=== PATIENT | male | born 1945 | race Caucasian/White ===

== ENCOUNTER → 2017-12-28 08:37 | Outpatient (CLI) | payer MEDICARE, OTHER, SELFPAY ==
--- NOTE | 2017-12-28 08:49 | CT_ITS ---
CT abdomen pelvis wo con CLINICAL INDICATION: Right lower quadrant pain, possible hernia ITS.REASON: INGUINAL HERNIA ORDERING PHYSICIAN: Brooke Sharpe PATIENT AGE: 72 years COMPARISON: None TECHNIQUE: Axial images obtained with sagittal and coronal reformats. All CT scans at the facility use one or more dose reduction, viz: automated exposure control, ma/kV adjustment per patient size (including targeted exams where dose is matched to indication, i.e. head), or iterative reconstruction technique. PROCEDURE: Oral Contrast: Redicat IV Contrast: None . FINDINGS: No acute finding in the lower chest. There are coronary artery calcifications. The liver, gallbladder, spleen, adrenal glands, pancreas, and kidneys have an unremarkable unenhanced CT appearance. Unremarkable appendix. There is diverticulosis of the descending and sigmoid colon with mild thickening of the sigmoid colon which may be related to the chronic diverticulosis. No evidence of diverticulitis. The prostate gland is enlarged measuring 5.3 x 5.4 cm. There is mild concentric thickening of the urinary bladder wall. No evidence of inguinal hernia. No abdominal wall hernia is apparent. No evidence of abdominal aortic aneurysm. No acute bony anomalies apparent. IMPRESSION: 1. No acute abdominal or pelvic findings. 2. No evidence of abdominal wall or inguinal hernia. 3. Enlarged prostate. There is concentric urinary bladder wall thickening which may be related to chronic bladder outlet obstruction
== END ==
PROVIDERS: Visit Provider Nurse Practitioner Family
DX: K40.90 Unilateral inguinal hernia, without obstruction or gangrene, not specified as recurrent (principal)
CPT/HCPCS: 74176

== ENCOUNTER → 2018-04-13 14:04 | Outpatient (CLI) | payer MEDICARE, OTHER, SELFPAY ==
[2018-04-13 17:00] LABS: Basophils # 0.1 K/mm3 (0-0.2); Basophils % 0.8 % (0.1-2.0); Eosinophils # 0.1 K/mm3 (0.0-0.4); Eosinophils % 0.9 % (0.1-12.0); Hematocrit 37.7 % (42.0-52.0); Hemoglobin 12.7 g/dL (14.1-18.0); Lymphocytes # 1.2 K/mm3 (0.7-4.5); Lymphocytes % 19.8 % (10-50); Mean Corpuscular HGB Conc 33.6 g/dL (31.8-35.4); Mean Corpuscular Hemoglobin 32.6 pg (27.0-31.2); Mean Corpuscular Volume 97.3 fl (80-94); Mean Platelet Volume 8.8 fl (7.4-10.4); Monocytes # 0.4 K/mm3 (0.1-1.0); Neutrophils # 4.4 K/mm3 (1.8-7.8); Neutrophils % 72.5 % (37.0-80.0); Platelet Count 214 K/mm3 (142-424); Red Blood Count 3.88 M/mm3 (4.60-6.20); Red Cell Distribution Width 13.6 % (11.5-17.5); White Blood Count 6.1 K/mm3 (4.8-10.8)
[2018-04-13 17:04] LABS: Anion Gap 15.4 mEq/L (5-15); Blood Urea Nitrogen 15 mg/dL (7-18); Calcium 8.9 mg/dL (8.5-10.1); Carbon Dioxide 27 mmol/L (21.0-32.0); Chloride 102 mmol/L (98-107); Estimated Glomerular Filt Rate 95 ml/min (>60); GFR (African American) 115 ML/MIN (>60); Glucose 95 mg/dL (74-106); Potassium 4.4 mmoL/L (3.5-5.1); Sodium 140 mmol/L (136-145)
== END ==
PROVIDERS: Visit Provider Surgery
DX: K46.9 Unspecified abdominal hernia without obstruction or gangrene (principal)
CPT/HCPCS: 36415; 80048; 85025

== ENCOUNTER → 2019-12-02 09:36 | Outpatient (CLI) | payer MEDICARE, OTHER, SELFPAY ==
[2019-12-02 13:45] LABS: Coronavirus 19 IgG Antibody Positive (Negative); Coronavirus 19 IgM Antibody Negative (Negative)
== END ==
PROVIDERS: Visit Provider Surgery
DX: Z01.818 Encounter for other preprocedural examination (principal); Z12.11 Encounter for screening for malignant neoplasm of colon
CPT/HCPCS: 36415; 86328

== ENCOUNTER 2019-12-03 09:04 | Day surgery (SDC) | payer MEDICARE, OTHER, SELFPAY ==
[2019-12-03] VITALS (7 sets, daily range): BP systolic 81–158; BP diastolic 44–88; PULSE 51–80; RESP 18; TEMP 36.4–36.7; O2SAT 96–99; BMI 23.8
--- NOTE | 2019-12-03 10:12 | HMH.GSHP ---
HPI HPI: Patient is a 74-year-old male referred by Dr. Gulshan Finnegan for evaluation of hemorrhoids. In May 2018 I had performed laparoscopic inguinal hernia repair on him. He states that, I have had hemorrhoids for years. His symptoms have been progressively worse. He describes some blood and fluid discharge with bowel movements. He states he has a hemorrhoid which protrudes. He does not have any severe pain. He states that he has had to place tissue paper. He has never had prior colonoscopy. On limited office examination he has no evidence of any severe pathologic external hemorrhoids. Digital examination is relatively untelling. I explained to him that he needs a colonoscopy and this would be recommended to better evaluate any potential internal hemorrhoids or alternative pathology. He was somewhat hesitant to proceed with this. I informed him that I am unable to treat any potential problem which may or may not be hemorrhoids without further investigation. Plan will be to proceed with colonoscopy. If he does have merely some internal hemorrhoids attempt at colonoscopic banding may be able to be performed. [facility] History I have reviewed the patient's past medical history: Yes Medical History: Reports:: BPH, Cancer (skin cancer), Hyperlipidemia, Hypertension Denies:: Diabetes Mellitus Type 1, Diabetes Mellitus Type 2, Internal Pacemaker, MRSA, Seizures *Have you ever received a pneumonia vaccine?: Yes *Have you received a flu vaccine this season?: Yes Other Medical History: Denies: Blood Transfusion Reaction Laterality Cases: Bilateral: Carotid Endarterectomy Other Surgeries: Yes: Cancer Surgery, Hernia Repair, Skin Cancer Excision. No: Pacemaker Amputation: No Fractures: No - *Social History Last grade of school completed: Some college Smoking Status: Never smoker Alcohol Intake: never Alcohol Intake Frequency:: holidays/special occasions only Substance Use Type: denies use *Occupational Status:: employed Housing: house Household Members: spouse *Travel in the last 8 weeks: None Family Hx:: Cancer, Coronary Artery Disease, Diabetes, Heart Attack, Hyperlipidemia, Hypertension Review of Systems - Review of Systems Review of systems:: pertinent systems reviewed and negative unless documented below Meds Home Medications Medication Instructions Recorded Confirmed Type atorvastatin 10 mg tablet 10 mg PO DAILY 04/13/18 01/22/19 History cholecalciferol (vitamin D3) 25 1,000 unit PO DAILY 04/13/18 01/22/19 History mcg (1,000 unit) capsule omega-3 fatty acids-fish oil 360 1 cap PO DAILY 04/13/18 01/22/19 History mg-1,200 mg capsule saw palmetto fruit 450 mg capsule 450 mg PO BID 04/13/18 01/22/19 History sildenafil 100 mg tablet 100 mg PO DAILY PRN 04/13/18 01/22/19 History tamsulosin 0.4 mg capsule 0.4 mg PO DAILY 04/13/18 01/22/19 History [id number]/Sod Sulf,Bicarb,Cl/KCl 240 ml PO Q10M 12/03/19 History [Gavilyte-C Solution] Allergies Allergy/AdvReac Type Severity Reaction Status Date / Time No Known Allergies Allergy Verified 12/03/19 09:45 Exam Vital signs and Labs for Last 24 Hours: Temp Pulse Resp BP Pulse Ox 98.0 F 80 18 158/88 H 96 12/03/19 09:31 12/03/19 09:31 12/03/19 09:31 12/03/19 09:31 12/03/19 09:31 I & O for Last 24 hours: Intake & Output 11/30/19 12/01/19 12/02/19 12/03/19 11:59 11:59 11:59 11:59 Weight 166 lb - *Routine HEENT Exam Head: Present: normocephalic Eye: Present: EOMI, PERRL ENT: Present: mucous membranes moist - *Routine Neck Exam Present: supple. Absent: lymphadenopathy - *Routine Respiratory Exam Present: CTA bilaterally - *Routine Cardiovascular Exam Present: RRR - *Routine Abdominal Exam Present: soft, normoactive bowel sounds. Absent: tenderness - *Routine Extremities Exam Absent: cyanosis, clubbing, edema - *Routine Skin Exam Present: warm. Absent: rash - *Routine Neurological Exam Present: alert, layla
--- NOTE | 2019-12-03 11:38 | HMH.SCOPE ---
- Procedure: Date: 12/03/19 Patient Date of :: 1945 Procedure Performed:: Total colonoscopy to terminal ileum with numerous polypectomy by cold snare, hot snare, and biopsy forceps with injection of Cindy ink and clip placement Indications:: Patient is a 74-year-old male referred by Dr. Gulshan Finnegan for evaluation of hemorrhoids. In May 2018 I had performed laparoscopic inguinal hernia repair on him. He states that, I have had hemorrhoids for years. His symptoms have been progressively worse. He describes some blood and fluid discharge with bowel movements. He states he has a hemorrhoid which protrudes. He does not have any severe pain. He states that he has had to place tissue paper. He has never had prior colonoscopy. On limited office examination he has no evidence of any severe pathologic external hemorrhoids. Digital examination is relatively untelling. I explained to him that he needs a colonoscopy and this would be recommended to better evaluate any potential internal hemorrhoids or alternative pathology. He was somewhat hesitant to proceed with this. I informed him that I am unable to treat any potential problem which may or may not be hemorrhoids without further investigation. Plan will be to proceed with colonoscopy. If he does have merely some internal hemorrhoids attempt at colonoscopic banding may be able to be performed. Performing Provider:: Rajesh Ramos MD Referring Provider:: Gulshan Finnegan MD Sedation:: Propofol Procedure:: Patient was taken to endoscopy procedure room. He was positioned in a lateral decubitus position. Adequate intravenous sedation was achieved with anesthesia titration of propofol. Variable stiffness Olympus colonoscope was inserted via the anus. Retroflexion was performed immediately which revealed some evidence of internal hemorrhoids but there was a pedunculated lesion at the anorectal region which appeared more like a pedunculated polyp with some ulceration. This is likely the source of the patient's symptomatology. The colonoscope was then advanced to the cecum without difficulty. Colonic preparation was good. Ileocecal valve and appendiceal orifice were clearly identified. Colonoscope was slowly withdrawn through the colon with careful surveillance. Numerous polyps were encountered. Due to the large number of polyps please see findings below for details. Most notable was a jeff-circumferential polypoid lesion which was quite large and sessile at the region presumed to be the splenic flexure approximately 70 cm from the anal verge. This was partially removed with repeated application of hot snare but could not be removed in its entirety. Cindy ink was injected submucosally around the lesion to julia the area. Hemoclip was placed endoscopically for potential radiographic marking. Endoscope was then withdrawn through the remainder of the colon with additional polypectomy performed. There was some sigmoid diverticulosis. Retroflexion was then performed once again within the rectum. The anorectal pedunculated lesion was encircled with a hot snare and removed. Colonoscope was withdrawn. Findings:: Cecal polyp x2 removed with cold snare Ascending colon polyp removed with biopsy forceps Hepatic flexure polyp removed with cold snare Proximal transverse polyp removed with cold snare Hepatic flexure polyp #2 removed with cold snare Right colon polyp not otherwise specified removed with cold snare Transverse colon polyp x4 removed with cold biopsy forceps Splenic flexure lesion, jeff-circumferential flat and sessile, partially removed with hot snare with injection of Cindy spot and clip placement Descending colon polyp x2 removed with cold snare and biopsy forceps Sigmoid polyp removed with cold snare Mid sigmoid polyp removed with cold biopsy forceps Distal sigmoid polyp removed with hot snare and retrieved with [place] net Distal sigmoid polyp #2 removed with col
== END 2019-12-03 12:30 | disposition home or self-care (01) ==
LOC: OUTP 09:07
PROVIDERS: PCP Internal Medicine Adolescent Medicine; Visit Provider Surgery
PROC: 0DJD8ZZ Inspection of Lower Intestinal Tract, Via Natural or Artificial Opening Endoscopic (ICD-10-PCS; CPT 45381; principal; 2019-12-03 10:30)
DX: K63.5 Polyp of colon (principal); K57.30 Diverticulosis of large intestine without perforation or abscess without bleeding; K64.9 Unspecified hemorrhoids; N40.0 Benign prostatic hyperplasia without lower urinary tract symptoms; Z85.828 Personal history of other malignant neoplasm of skin; E78.5 Hyperlipidemia, unspecified; I10 Essential (primary) hypertension; Z79.899 Other long term (current) drug therapy
CPT/HCPCS: 45381; 45385; 88305; J2704

== ENCOUNTER → 2020-01-27 10:14 | Outpatient (CLI) | payer MEDICARE, OTHER, SELFPAY ==
[2020-01-27 11:54] LABS: Coronavirus 19 IgG Antibody Positive (Negative); Coronavirus 19 IgM Antibody Negative (Negative)
== END ==
PROVIDERS: Visit Provider Surgery
DX: Z01.818 Encounter for other preprocedural examination (principal); Z12.11 Encounter for screening for malignant neoplasm of colon
CPT/HCPCS: 36415; 86328

== ENCOUNTER 2020-01-28 09:17 | Day surgery (SDC) | payer MEDICARE, OTHER, SELFPAY ==
[2020-01-23 10:26] VITALS: BMI 23.1
[2020-01-28 10:40] VITALS: BP 153/77; PULSE 64; RESP 16; TEMP 36.4; O2SAT 100
--- NOTE | 2020-01-28 11:40 | HMH.GSHP ---
HPI HPI: Patient presents for follow-up colonoscopy. He had been referred by Dr. Gulshan Finnegan for evaluation of possible hemorrhoids. Had previously performed hernia repair on him in the past. He described some blood and fluid discharge with bowel movements. He stated he had a hemorrhoid which protrudes. He had never had prior colonoscopy. Therefore I performed colonoscopy on him and the problematic lesion was a prolapsing polyp at the distal rectum which was removed. He states that this has helped him tremendously and his lifestyle is much better. However, he also was found to have at least 17 tubular adenomas throughout the colon. Most concerning was a nearly circumferential adenomatous lesion near the presumed splenic flexure which was unable to be removed in its entirety with hot snare. Pathology of this lesion returned as tubular adenoma without dysplasia. The area was marked with Cindy ink. I discussed these findings with the patient and informed him that the most optimal treatment likely would be segmental resection of this portion of colon. However, I also discussed the possibility of early repeat colonoscopy to reassess the area and possibly remove this area sequentially with repeat colonoscopy. Patient was hesitant to undergo colon resection at this time. I will plan for a repeat colonoscopy to really inspect this lesion and hopefully continue to remove remaining polypoid tissue as an early repeat colonoscopy. However, I did inform him if this is unsuccessful he may very well require resection. [facility] History I have reviewed the patient's past medical history: Yes Medical History: Reports:: BPH, Cancer (skin ca), Hyperlipidemia, Hypertension Denies:: Diabetes Mellitus Type 1, Diabetes Mellitus Type 2, Internal Pacemaker, MRSA, Seizures *Have you ever received a pneumonia vaccine?: Yes *Have you received a flu vaccine this season?: Yes Other Medical History: Denies: Blood Transfusion Reaction Laterality Cases: Bilateral: Carotid Endarterectomy Other Surgeries: Yes: Cancer Surgery, Colonoscopy, Hernia Repair, Skin Cancer Excision. No: Pacemaker Amputation: No Fractures: No - *Social History Last grade of school completed: Some college Smoking Status: Never smoker Alcohol Intake: current Alcohol Intake Frequency:: a few times a month Substance Use Type: denies use *Occupational Status:: employed Housing: house Household Members: spouse *Travel in the last 8 weeks: None Family Hx:: Cancer, Coronary Artery Disease, Diabetes, Heart Attack, Hyperlipidemia, Hypertension Review of Systems - Review of Systems Review of systems:: pertinent systems reviewed and negative unless documented below Meds Home Medications Medication Instructions Recorded Confirmed Type atorvastatin 10 mg tablet 10 mg PO DAILY 04/13/18 01/23/20 History cholecalciferol (vitamin D3) 25 1,000 unit PO DAILY 04/13/18 01/23/20 History mcg (1,000 unit) capsule omega-3 fatty acids-fish oil 360 1 cap PO DAILY 04/13/18 01/23/20 History mg-1,200 mg capsule saw palmetto 450 mg capsule 450 mg PO BID 04/13/18 01/23/20 History sildenafil 100 mg tablet 100 mg PO DAILY PRN 04/13/18 01/23/20 History tamsulosin 0.4 mg capsule 0.4 mg PO DAILY 04/13/18 01/23/20 History chlorthalidone 25 mg tablet 25 mg PO Q OTHER DAY 12/16/19 01/23/20 History [id number]/Sod Sulf,Bicarb,Cl/KCl 240 ml PO Q10M 01/23/20 01/23/20 History [Gavilyte-C Solution] Allergies Allergy/AdvReac Type Severity Reaction Status Date / Time No Known Allergies Allergy Verified 01/28/20 10:39 Exam Vital signs and Labs for Last 24 Hours: Temp Pulse Resp BP Pulse Ox 97.6 F 64 16 153/77 H 100 01/28/20 10:40 01/28/20 10:40 01/28/20 10:40 01/28/20 10:40 01/28/20 10:40 - *Routine HEENT Exam Head: Present: normocephalic Eye: Present: EOMI, PERRL ENT: Present: mucous membranes moist - *Routine Neck Exam Present: supple. Absent: lymphadenopathy - *Routine Respi
[2020-01-28 11:42] VITALS: O2SAT 100
[2020-01-28 13:11] VITALS: BP 87/50; PULSE 61; RESP 18; TEMP 36.2; O2SAT 99
--- NOTE | 2020-01-28 13:18 | HMH.SCOPE ---
- Procedure: Date: 01/28/20 Patient Date of :: 1945 Procedure Performed:: Colonoscopy with multiple polypectomy and injection of Cindy ink Indications:: Patient presents for follow-up colonoscopy. He had been referred by Dr. Gulshan Finnegan for evaluation of possible hemorrhoids. Had previously performed hernia repair on him in the past. He described some blood and fluid discharge with bowel movements. He stated he had a hemorrhoid which protrudes. He had never had prior colonoscopy. Therefore I performed colonoscopy on him on 12/03/2019 and the problematic lesion was a prolapsing polyp at the distal rectum which was removed. He states that this has helped him tremendously and his lifestyle is much better. However, he also was found to have at least 17 tubular adenomas throughout the colon. Most concerning was a nearly circumferential adenomatous lesion near the presumed splenic flexure which was unable to be removed in its entirety with hot snare. Pathology of this lesion returned as tubular adenoma without dysplasia. The area was marked with Cindy ink. I discussed these findings with the patient and informed him that the most optimal treatment likely would be segmental resection of this portion of colon. However, I also discussed the possibility of early repeat colonoscopy to reassess the area and possibly remove this area sequentially with repeat colonoscopy. Patient was hesitant to undergo colon resection at this time. I will plan for a repeat colonoscopy to really inspect this lesion and hopefully continue to remove remaining polypoid tissue as an early repeat colonoscopy. However, I did inform him if this is unsuccessful he may very well require resection. Performing Provider:: Rajesh Ramos MD Referring Provider:: Gulshan Finnegna MD Sedation:: Propofol Procedure:: Patient was taken to endoscopy procedure room. He was positioned in a lateral decubitus position. Adequate intravenous sedation was achieved. Variable stiffness Olympus colonoscope was inserted via the anus. Advanced to the cecum without significant difficulty. Colonoscope was slowly withdrawn through the colon with careful surveillance. In the ascending colon there were several adenomatous appearing polyps removed with hot snare. In the distal transverse colon there were multiple adenomatous polyps removed with hot snare. Near the splenic flexure the previously noted lesion was visualized. This was hemicircumferential adenomatous appearing sessile lesion. Attempt was made to remove this in a piecemeal fashion using hot snare. It was flat and edges were difficult to determine and therefore some methylene blue was injected in an attempt to raise the lesion. However, this was unsuccessful. It was felt that this would likely require resection. Additional Cindy ink was injected near the lesion to julia the area. Colonoscope was withdrawn through the remainder of the left colon. In the descending colon there was a sessile adenomatous appearing polyp removed with cold snare. Sigmoid colon there is a diminutive polyp removed with biopsy forceps. He had significant sigmoid diverticulosis. At the rectosigmoid region there is a pedunculated adenomatous polyp removed cold cutting snare. Colonoscope was withdrawn. Findings:: Ascending colon polyp x3 Distal transverse colon polyp x6 Splenic flexure polypoid hemicircumferential mass marked with Cindy ink, partially removed with hot snare Descending colon polyp Sigmoid colon polyp Rectosigmoid polyp Sigmoid diverticulosis Recommendations:: Follow-up on histopathology. Likely would recommend segmental resection of lesion. However, the patient could require genetic testing given the large amount of adenomatous polyps. Laparoscopic resection may be a consideration. This is to be discussed with the patient. Complications:: None immediately apparent Estimated blood obtained (mL): 5
[2020-01-28 13:20] VITALS: BP 95/51; PULSE 57; RESP 18; O2SAT 99
[2020-01-28 13:30] VITALS: BP 105/68; PULSE 67; RESP 18; O2SAT 97
[2020-01-28 13:45] VITALS: BP 108/72; PULSE 64; RESP 18; O2SAT 97
--- NOTE | 2020-01-28 13:54 | P.PN_ITS ---
[facility] Anesthesia Checklist - Patient Identification Patient Identification: Arm Band, Verbal (Name & ) - Structural Data Admitted From: Home Planned Operative Procedure/s: Colonoscopy Consent for Planned Operative Procedure(s) Verified: Yes Verified Documents: Surgical Consent, History and Physical - NPO Status Verified Time NPO: 00:00 - Chart Verification Results Verified: None - Additional verifications Anesthesia Reactions: No Hx Blood Transfusions: No Blood Transfusion Reaction: No - Airway Assessment C-Spine Mobility Assessed: Yes TMJ Mobility Assessed: Yes Dentition: Poor Dentition (chipped, missing) - Neurological Assessment Level of Consciousness: Awake, Alert, Appropriate, Follows Commands Hx Seizures: No Numbness or tingling in extremities: No - Anesthesia Plan Anesthesia Risk discussed: Yes Anesthesia Plan: Verified ASA Class: II Anesthesia Type: MAC [facility] History I have reviewed the patient's past medical history: Yes Medical History: Reports:: BPH, Cancer (skin ca), Hyperlipidemia, Hypertension Denies:: Diabetes Mellitus Type 1, Diabetes Mellitus Type 2, Internal Pacemaker, MRSA, Seizures *Have you ever received a pneumonia vaccine?: Yes *Have you received a flu vaccine this season?: Yes Other Medical History: Denies: Blood Transfusion Reaction Anesthesia experience/problems:: none Laterality Cases: Bilateral: Carotid Endarterectomy Other Surgeries: Yes: Cancer Surgery, Colonoscopy, Hernia Repair, Skin Cancer Excision. No: Pacemaker Amputation: No Fractures: No - *Social History Last grade of school completed: Some college Smoking Status: Never smoker Alcohol Intake: current Alcohol Intake Frequency:: a few times a month Substance Use Type: denies use *Occupational Status:: employed Housing: house Household Members: spouse *Travel in the last 8 weeks: None Family Hx:: Cancer, Coronary Artery Disease, Diabetes, Heart Attack, Hyperlipidemia, Hypertension
== END 2020-01-28 13:45 | disposition home or self-care (01) ==
LOC: OUTP 09:20
PROVIDERS: PCP Internal Medicine Adolescent Medicine; Visit Provider Surgery
PROC: 0DJD8ZZ Inspection of Lower Intestinal Tract, Via Natural or Artificial Opening Endoscopic (ICD-10-PCS; CPT 45380; principal; 2020-01-28 10:30)
DX: Z87.19 Personal history of other diseases of the digestive system (principal); K63.5 Polyp of colon; K57.30 Diverticulosis of large intestine without perforation or abscess without bleeding; N40.0 Benign prostatic hyperplasia without lower urinary tract symptoms; Z85.828 Personal history of other malignant neoplasm of skin; E78.5 Hyperlipidemia, unspecified; I10 Essential (primary) hypertension; Z80.9 Family history of malignant neoplasm, unspecified; Z83.3 Family history of diabetes mellitus; Z82.3 Family history of stroke; Z82.49 Family history of ischemic heart disease and other diseases of the circulatory system; Z83.438 Family history of other disorder of lipoprotein metabolism and other lipidemia
CPT/HCPCS: 45380; 45381; 45385; 88305; J2704

== ENCOUNTER → 2020-05-06 17:12 | Outpatient (CLI) | payer MEDICARE, OTHER, SELFPAY ==
[2020-05-06 18:05] LABS: Basophils # 0.1 K/mm3 (0-0.2); Basophils % 0.7 % (0.1-2.0); Eosinophils # 0.1 K/mm3 (0.0-0.4); Eosinophils % 1.1 % (0.1-12.0); Hematocrit 39.8 % (42.0-52.0); Hemoglobin 12.6 g/dL (14.1-18.0); Lymphocytes # 1.5 K/mm3 (0.7-4.5); Lymphocytes % 22.8 % (10-50); Mean Corpuscular HGB Conc 31.7 g/dL (31.8-35.4); Mean Corpuscular Hemoglobin 31.2 pg (27.0-31.2); Mean Corpuscular Volume 98.4 fl (80-94); Mean Platelet Volume 9.1 fl (7.4-10.4); Monocytes # 0.5 K/mm3 (0.1-1.0); Monocytes % 7.2 % (1.7-9.3); Neutrophils # 4.6 K/mm3 (1.8-7.8); Neutrophils % 68.2 % (37.0-80.0); Platelet Count 188 K/mm3 (142-424); Red Blood Count 4.05 M/mm3 (4.60-6.20); Red Cell Distribution Width 13.8 % (11.5-17.5); White Blood Count 6.7 K/mm3 (4.8-10.8)
[2020-05-06 18:09] LABS: Chloride 107 mmol/L (98-107)
[2020-05-06 18:10] LABS: Potassium 4.3 mmoL/L (3.5-5.1); Sodium 142 mmol/L (136-145)
[2020-05-06 18:13] LABS: Anion Gap 11.3 mEq/L (5-15); Blood Urea Nitrogen 19 mg/dl (9-20); Calcium 9.6 mg/dl (8.4-10.2); Carbon Dioxide 28 mmol/L (22.0-30.0); Estimated Glomerular Filt Rate 94 ml/min (>60); GFR (African American) 114 ML/MIN (>60); Glucose 105 mg/dl (74-100)
[2020-05-06 19:22] LABS: Coronavirus 19 IgG Antibody Negative (Negative); Coronavirus 19 IgM Antibody Negative (Negative)
== END ==
PROVIDERS: Visit Provider Surgery
DX: R33.9 Retention of urine, unspecified (principal); N40.1 Benign prostatic hyperplasia with lower urinary tract symptoms; Z01.812 Encounter for preprocedural laboratory examination; Z90.49 Acquired absence of other specified parts of digestive tract; Z20.822 Contact with and (suspected) exposure to COVID-19
CPT/HCPCS: 36415; 80048; 85025; 86328

== ENCOUNTER 2020-05-08 06:34 | Inpatient (IN) | payer MEDICARE, OTHER, SELFPAY ==
[2020-05-05 09:01] VITALS: BMI 23.6
[2020-05-08] VITALS (25 sets, daily range): BP systolic 101–143; BP diastolic 50–83; PULSE 63–98; RESP 15–18; TEMP 36.3–43; O2SAT 98–100; BMI 22.9
--- NOTE | 2020-05-08 08:24 | P.PN_ITS ---
[facility] Anesthesia Checklist - Patient Identification Patient Identification: Arm Band, Verbal (Name & ) - Structural Data Admitted From: Home Planned Operative Procedure/s: colon resection Consent for Planned Operative Procedure(s) Verified: Yes Verified Documents: Surgical Consent - NPO Status Verified Time NPO: 00:00 - Additional verifications Anesthesia Reactions: No Hx Blood Transfusions: No Blood Transfusion Reaction: No - Anesthesia Plan Anesthesia Risk discussed: Yes Anesthesia Plan: Verified Anesthesia Type: General [facility] History Medical History: Reports:: BPH, Cancer, Hyperlipidemia, Hypertension Denies:: Diabetes Mellitus Type 1, Diabetes Mellitus Type 2, Internal Pacemaker, MRSA, Seizures *Have you ever received a pneumonia vaccine?: Yes *Have you received a flu vaccine this season?: Yes Other Medical History: Denies: Blood Transfusion Reaction Anesthesia experience/problems:: none Laterality Cases: Bilateral: Carotid Endarterectomy Other Surgeries: Yes: Cancer Surgery, Colonoscopy, Hernia Repair, Skin Cancer Excision. No: Pacemaker Amputation: No Fractures: No - *Social History Last grade of school completed: Some college Smoking Status: Never smoker Alcohol Intake: current Alcohol Intake Frequency:: a few times a month Substance Use Type: denies use *Occupational Status:: employed Housing: house Household Members: spouse *Travel in the last 8 weeks: None Family Hx:: Cancer, Coronary Artery Disease, Diabetes, Heart Attack, Hyperlipidemia, Hypertension
--- NOTE | 2020-05-08 09:09 | HMH.OPNOTE ---
Date of procedure: 05/08/20 Pre-op Diagnosis:: Colon lesion Post-op Diagnosis:: Same Procedure performed:: Laparotomy with segmental colon resection transverse colon with end to end handsewn anastomosis Surgeon:: Rajesh Ramos MD MARGARINE MAKER:: Other Anesthesia: GETA Estimated blood loss (mL): 30 Clinical Note:: Patient presents for colon resection. He had originally been referred by Dr. Gulshan Finnegan for evaluation of symptoms characterized by blood and fluid discharge with bowel movements. I performed colonoscopy on 12/03/2019 and the problematic lesion was a prolapsing polyp at the distal rectum which was removed. He states that this has helped him tremendously with his symptoms of blood and discharge with bowel movements. However, he also was found to have at least 17 tubular adenomas throughout the colon. Most concerning was a nearly circumferential adenomatous lesion near the presumed splenic flexure which was unable to be removed in its entirety with hot snare. Pathology of this lesion returned as tubular adenoma without dysplasia. The area was marked with Cindy ink. I discussed these findings with the patient during follow up and informed him that the most optimal treatment likely would be segmental resection of this portion of colon. Patient opted to proceed with repeat colonoscopy which was done on 01/28/2020. He was found to have 11 additional tubular adenomas. The lesion presumably at the splenic flexure was noted and despite multiple efforts in an attempt to remove this including submucosal injection of methylene blue this was unsuccessful. Prolonged discussion and options was held with the patient. He opted to proceed with resection. Operative findings:: Patient had a moderately large sessile lesion noted upon opening of the specimen. This was actually in the mid transverse colon. Operative note:: Patient was taken the operating room. He was given preoperative intravenous antibiotics. In prior to surgery he underwent mechanical bowel preparation with oral antibiotics as well. He had sequential compression devices placed on bilateral lower extremities and was administered low molecular weight heparin for DVT prophylaxis. General anesthesia was induced. His abdomen was prepped and draped in the standard surgical fashion. Limited upper mid laparotomy incision was performed. Exposure was achieved. There was visible and Cindy ink noted in the mid transverse colon. The lesion was not palpable. Given the benign nature plan was made for limited segmental transverse colon resection. The colon was divided several centimeters distal to the marking and proximal. The omentum, lesser and greater, was divided adjacent to the colon using the Enseal device. The adjacent colonic mesentery was scored with electrocautery and divided with the Enseal device. At this time on the back table the specimen was opened after the been marked with suture marking distal margin. Within the site of Cindy ink marking there was a flat sessile polyp appearing lesion. There were good margins. Plan was made for end-to-end anastomosis. 3 oh Surgilon sutures were placed at each end of the staple line. Posterior seromuscular sutures were placed using 3 oh Surgilon. Staple lines were then excised. End-to-end anastomosis was created with running 3-0 Vicryl suture. Anterior layer was then closed with interrupted 3 oh Surgilon seromuscular sutures. Anastomosis appeared patent and intact. The transverse colon mesenteric defect was closed with a running 2-0 Vicryl. There appeared to be good hemostasis. Wound was irrigated. Fascia was closed with running #2 Novafil x2. Subcutaneous tissues were irrigated. There was good hemostasis. Skin was closed with berezy. Clean dry sterile dressing was applied. Condition: stable Disposition: PACU Specimens:: Segmental resection transverse colon Complications:: None immediately apparent
--- NOTE | 2020-05-08 09:19 | P.PN_ITS ---
[facility] Anesthesia Record Part I Intake, IV Amount: 1,800 Estimated blood loss (mL): 100 Urine output (mL): 300 Blood Products used (#): none Blood Pressure: 143/73 SaO2: 100 Pulse Rate: 71 Respiratory Rate: 18 Temperature: 97.8 F Patient is:: Awake Stable to PACU at:: 09:20
--- NOTE | 2020-05-08 10:11 | PC.NURSE ---
patient brought to floor by surgery
--- NOTE | 2020-05-08 10:47 | P.CONPHA_ITS ---
[facility] Pharmacy VTE Monitoring - Patient Demographics Admission date: 05/08/20 Report Date: 05/08/20 Time: 10:47 Allergies/Adverse Reactions: Patient Allergies No Known Allergies Allergy (Verified 05/08/20 06:24) Height: 1.78 m Weight: 74.843 kg - VTE Risk VTE Score: 4 VTE Risk Level: Low Risk - Prophylaxis VTE Prophylaxis Ordered?: Yes Types of VTE Prophylaxis: TEDS Knee High, Pharmacological Location of Applied Device: Bilateral Lower Extremeties Pharmacologic Type: Enoxaparin
[2020-05-08 13:30] LABS: Microscopic,Cath URINE MICROSCOPIC (MICROSCOPIC)
[2020-05-08 13:40] LABS: Appearance,Urine/Cath CLEAR (Clear); Bilirubin,Cath Negative (Negative); Blood, Urine/Cath 1+ (Negative); Color,Urine/Cath YELLOW (Yellow); Glucose,Urine/Cath (UA) Negative (Negative); Ketones,Urine/Cath Negative (Negative); Leukocyte Esterase,Cath Negative (Negative); Nitrate,Cath Negative (Negative); Protein,Urine/Cath Negative (Negative); Urobilinogen,Cath 0.2 EU/dl (0.2)
[2020-05-08 13:50] LABS: Squamous Epithelial Ur./Cath Occasional #/hpf (0-5)
--- NOTE | 2020-05-08 15:12 | HMH.ANESII ---
[facility] Anesthesia Record Part II Discharge Time: 10:02 Destination: Medical Surgical Department PACU nurse assessment reviewed?: Yes Patient Condition:: Good Anesthesia Complications:: None Swallowing reflex intact?: Yes Cyanosis?: No Blood Pressure: 129/64 Pulse Rate: 73 Temperature: 97.8 F Mental Status: Alert & Oriented Pain level:: 5 Nausea and/or vomitting:: None Intake, IV Amount: 0
--- NOTE | 2020-05-08 17:39 | HMH.HP ---
*Admission Date: 05/08/20 *Chief complaint: s/p colon resection *History of present illness: Mr. Silver is a 74-year-old male with recent colonoscopy performed in December. Positive for significant tubular adenoma burden and nearly circumferential adenomatous lesion near the splenic flexure. Decision was made to pursue partial colon resection due to significant disease burden. Patient was scheduled for removal today, performed by surgery without incident. Seen after arriving to the floor. Medicine was consulted to assist with medical management of patient's chronic conditions. Currently on INSTALLER HELPER pump, pain well controlled. Denies any active symptoms of nausea or vomiting. Does complain of having some dizziness or vertigo when he rolls over. Otherwise denies shortness of breath, headache, chest pain. Of note, patient's chronic conditions consist of BPH, multiple skin cancers, hypertension, hyperlipidemia. Numerous surgeries (see history for full details). [facility] History I have reviewed the patient's past medical history: Yes Medical History: Reports:: BPH, Hyperlipidemia, Hypertension Denies:: Cancer, Diabetes Mellitus Type 1, Diabetes Mellitus Type 2, Internal Pacemaker, MRSA, Seizures *Have you ever received a pneumonia vaccine?: Yes *Have you received a flu vaccine this season?: Yes Other Medical History: Denies: Blood Transfusion Reaction Anesthesia experience/problems:: none Laterality Cases: Bilateral: Carotid Endarterectomy Other Surgeries: Yes: Cancer Surgery, Colonoscopy, Colon Resection, Hernia Repair, Skin Cancer Excision. No: Pacemaker Amputation: No Fractures: No - *Social History Last grade of school completed: Some college Smoking Status: Never smoker Alcohol Intake: never Alcohol Intake Frequency:: a few times a month Substance Use Type: denies use *Occupational Status:: retired Housing: house Household Members: spouse *Travel in the last 8 weeks: None Family Hx:: Unable to obtain Review of Systems - Review of Systems Review of systems:: pertinent systems reviewed and negative unless documented below (14 point review of systems performed, pertinent positives and negatives as per HPI) Meds Home Medications Medication Instructions Recorded Confirmed Type atorvastatin 10 mg tablet 10 mg PO DAILY 04/13/18 05/08/20 History cholecalciferol (vitamin D3) 25 1,000 unit PO DAILY 04/13/18 05/08/20 History mcg (1,000 unit) capsule saw palmetto 450 mg capsule 450 mg PO BID 04/13/18 05/08/20 History tamsulosin 0.4 mg capsule 0.4 mg PO HS 04/13/18 05/08/20 History C,E,Zinc,Copper 11/Quxlj1d/Lut 1 each PO DAILY 05/05/20 05/08/20 History [Ocuvite Adult 50 Plus Softgel] Allergies Allergy/AdvReac Type Severity Reaction Status Date / Time No Known Allergies Allergy Verified 05/08/20 06:24 Exam Vital signs and Labs for Last 24 Hours: Temp Pulse Resp BP Pulse Ox 97.8 F 73 16 129/64 98 05/08/20 15:13 05/08/20 15:13 05/08/20 12:00 05/08/20 15:13 05/08/20 12:00 Laboratory Results - last 24 hr 05/08/20 07:30: Urine Color Yellow, Urine Appearance Clear, Urine pH 6.0, Ur Specific [place] 1.010, Urine Protein Negative, Urine Glucose (UA) Negative, Urine Ketones Negative, Urine Blood 1+, Urine Nitrate Negative, Urine Bilirubin Negative, Urine Urobilinogen 0.2, Ur Leukocyte Esterase Negative, Urine RBC 3-5, Urine WBC 3-5, Ur Squamous Epith Cells Occasional I & O for Last 24 hours: Intake & Output 05/05/20 05/06/20 05/07/20 05/08/20 23:59 23:59 23:59 23:59 Intake Total 2800 / 2800 Balance 2800 / 2800 Weight 74.843 kg 72.66 kg - Constitutional mild distress - *Routine HEENT Exam Head: Present: normocephalic Eye: Present: EOMI, PERRL ENT: Present: mucous membranes moist - *Routine Neck Exam Present: supple. Absent: lymphadenopathy - *Routine Respiratory Exam Present: CTA bilaterally - *Routine Cardiovascular Exam Present: RRR - *Routine Abdominal Exam Pres
--- NOTE | 2020-05-08 20:34 | PC.NURSE ---
patient has done well this shift. did turn self in bed and did well. tolerated better than anticipated. morphine peanut picker has done well with patient. mouth swabs at bedside. some dizziness noted and this was relayed to consulting md. slight nausea associated with the dizziness. not much change in drainage to dressing compared to at admission. holding pillow to abdomen. no other complaints. vitals have been stable. could start being weaned off o2.
--- NOTE | 2020-05-08 20:51 | PC.NURSE ---
patient has used about 12mg morphine this shift
[2020-05-09] VITALS (12 sets, daily range): BP systolic 115–147; BP diastolic 58–78; PULSE 18–97; RESP 16–22; TEMP 36.4–37.3; O2SAT 96–99; BMI 23.0
--- NOTE | 2020-05-09 06:08 | PC.NURSE ---
shift summary pts lung sounds are clear bilaterally. pts incision has some drainage but has not leaked through dressing, pt prefers to turn independently due to the pain from surgical site. pt has alfaro in place with clear straw colored urine. pt is alert and oriented X4. pt denies any nausea, vomiting or diarrhea. pt education completed on RESIDENTIAL REAL ESTATE SALES MANAGER pump and pt verbalized understanding.
--- NOTE | 2020-05-09 06:59 | PC.NURSE ---
pt used 8 mg on SECONDARY SOCIAL STUDIES TEACHER pump, denied one time
--- NOTE | 2020-05-09 07:22 | P.PN_ITS ---
Internal Medicine - PN: Subj *Date: 05/09/20 *Time: 09:36 Interval history: Did well overnight. Minimal pain medications needed. Johnson in place, no bowel movements or gas passed overnight. Slept well per his report. Denies any chest pain or shortness of breath. Exam Vital signs and Labs for Last 24 Hours: Temp Pulse Resp BP Pulse Ox 98.1 F 89 16 119/64 99 05/09/20 06:00 05/09/20 06:00 05/09/20 06:00 05/09/20 06:00 05/09/20 06:00 Laboratory Results - last 24 hr 05/08/20 07:30: Urine Color Yellow, Urine Appearance Clear, Urine pH 6.0, Ur Specific [place] 1.010, Urine Protein Negative, Urine Glucose (UA) Negative, Urine Ketones Negative, Urine Blood 1+, Urine Nitrate Negative, Urine Bilirubin Negative, Urine Urobilinogen 0.2, Ur Leukocyte Esterase Negative, Urine RBC 3-5, Urine WBC 3-5, Ur Squamous Epith Cells Occasional I & O for Last 24 hours: Intake & Output 05/06/20 05/07/20 05/08/20 05/09/20 23:59 23:59 23:59 23:59 Intake Total 2800 / 2800 1500 / 1500 Output Total 700 / 700 650 / 650 Balance 2100 / 2100 850 / 850 Weight 72.66 kg 73.028 kg Narrative: - Constitutional NAD - *Routine HEENT Exam Head: Present: normocephalic Eye: Present: EOMI, PERRL ENT: Present: mucous membranes moist - *Routine Neck Exam Present: supple. Absent: lymphadenopathy - *Routine Respiratory Exam Present: CTA bilaterally - *Routine Cardiovascular Exam Present: RRR - *Routine Abdominal Exam Present: soft, normoactive bowel sounds, tenderness (Diffusely on abdomen, surgi moo incision midline with clean bandage overlying incision) - *Routine Extremities Exam Absent: cyanosis, clubbing, edema - *Routine Skin Exam Present: warm; no rash; Multiple scars from previous skin lesion resections/removals - *Routine Neurological Exam Present: alert, oriented X3 Assessment and Plan (1) S/P colon resection Status: Acute Category: Surgical Code(s): Z90.49 - Acquired absence of other specified parts of digestive tract (2) Hypertension Status: Chronic Qualifiers: Hypertension type: essential hypertension Qualified Code(s): I10 - Essential (primary) hypertension Category: Medical Code(s): I10 - Essential (primary) hypertension (3) BPH (benign prostatic hyperplasia) Status: Chronic Qualifiers: Lower urinary tract symptom presence: symptoms present Category: Medical Code(s): N40.0 - Benign prostatic hyperplasia without lower urinary tract symptoms (4) Vertigo Status: Acute Category: Medical Code(s): R42 - Dizziness and giddiness - Assessment and plan all Dx Assessment and Plan for all problems:: Overall doing well this morning. Discussed case with surgery. Plan to DC Johnson today. Will initiate advancement of diet once patient is passing gas. Continue to be n.p.o. at this time except for medications. Continue BEAUTY CULTURE TEACHER pain control. Overall patient doing well. Continues to require inpatient management
--- NOTE | 2020-05-09 08:27 | P.PN_ITS ---
Subjective Narrative: Patient has some soreness. No major complaints. Transient nausea. Concerned about having catheter removed. Progress Note: A&P (1) S/P colon resection Status: Acute (2) Hypertension Status: Chronic (3) BPH (benign prostatic hyperplasia) Status: Chronic (4) Vertigo Status: Acute Assessment and Plan for All Diagnoses:: Out of bed. DC alfaro. Exam Vital signs and Labs for Last 24 Hours: Temp Pulse Resp BP Pulse Ox 98.4 F 97 H 18 139/70 96 05/09/20 08:00 05/09/20 08:00 05/09/20 08:00 05/09/20 08:00 05/09/20 08:00 Laboratory Results - last 24 hr 05/08/20 07:30: Urine Color Yellow, Urine Appearance Clear, Urine pH 6.0, Ur Specific [place] 1.010, Urine Protein Negative, Urine Glucose (UA) Negative, Urine Ketones Negative, Urine Blood 1+, Urine Nitrate Negative, Urine Bilirubin Negative, Urine Urobilinogen 0.2, Ur Leukocyte Esterase Negative, Urine RBC 3-5, Urine WBC 3-5, Ur Squamous Epith Cells Occasional I & O for Last 24 hours: Intake & Output 05/06/20 05/07/20 05/08/20 05/09/20 11:59 11:59 11:59 11:59 Intake Total 2800 / 2800 1500 / 1500 Output Total 1650 / 1650 Balance 2800 / 2800 -150 / -150 Weight 161 lb - *Routine Abdominal Exam Present: soft
[2020-05-09 08:53] LABS: Basophils % 0.1 % (0.1-2.0); Eosinophils % 0.2 % (0.1-12.0); Hematocrit 38.4 % (42.0-52.0); Hemoglobin 12.7 g/dL (14.1-18.0); Lymphocytes # 0.9 K/mm3 (0.7-4.5); Lymphocytes % 10.9 % (10-50); Mean Corpuscular HGB Conc 33.1 g/dL (31.8-35.4); Mean Corpuscular Hemoglobin 32.5 pg (27.0-31.2); Mean Corpuscular Volume 98.2 fl (80-94); Mean Platelet Volume 9.4 fl (7.4-10.4); Monocytes # 0.6 K/mm3 (0.1-1.0); Monocytes % 6.6 % (1.7-9.3); Neutrophils % 82.1 % (37.0-80.0); Platelet Count 155 K/mm3 (142-424); Red Blood Count 3.91 M/mm3 (4.60-6.20); Red Cell Distribution Width 13.9 % (11.5-17.5); White Blood Count 8.5 K/mm3 (4.8-10.8)
[2020-05-09 08:58] LABS: Chloride 107 mmol/L (98-107); Potassium 3.7 mmoL/L (3.5-5.1); Sodium 139 mmol/L (136-145)
[2020-05-09 09:01] LABS: Anion Gap 9.7 mEq/L (5-15); Blood Urea Nitrogen 14 mg/dl (9-20); Carbon Dioxide 26 mmol/L (22.0-30.0); Creatinine Clearance Estimated 67 mL/min (50-200); Estimated Glomerular Filt Rate 110 ml/min (>60); GFR (African American) 133 ML/MIN (>60); Glucose 82 mg/dl (74-100)
[2020-05-09 09:02] LABS: Calcium 8.3 mg/dl (8.4-10.2)
--- NOTE | 2020-05-09 10:26 | PC.NURSE ---
CHANGED MORPHINE IN PERPETUAL INVENTORY CLERK PUMP OUT Dilan RANDOLPH RN.
--- NOTE | 2020-05-09 18:08 | INFXCTL.NOTE ---
A&OX4. PT HAS TOLERATED RA WELL THROUGHOUT SHIFT. RESPIRATIONS REGULAR AND UNLABORED. LUNG SOUNDS BILATERALLY CLEAR. NO COUGH NOTED. HAND STOCK TAKER EQUAL. +2 PULSES NOTED THROUGHOUT. NO EDEMA NOTED. SCUDS IN PLACE. LR INFUSING AT 125ML/HR. ACTIVE BOWEL SOUNDS HEARD IN ALL4 QUADRANTS. SOFT AND TENDER ABDOMEN. NO REPORTS OF FLATUS PASSED OR BM THUS FAR. PT VOIDS PER URINAL AND TOILET WITH STANDBY ASSIST. YELLOW URINE NOTED. OT HAS BEEN UP TO THE CHAIR ALL AFTERNOON. LOT PORTER PUMP IN USE. DRESSING NOTED TO MIDLINE OF ABDOMEN. SCANT SEROSANGUINEOUS DRAINAGE NOTED. PT HAS REMAINED NPO THROUGHOUT SHIFT. CALL LIGHT WITHIN REACH. BED IN LOWEST POSITION. VSS. WILL CONTINUE TO MONITOR.
--- NOTE | 2020-05-09 19:32 | PC.NURSE ---
17.7MG CLEARED FROM INFORMATICS APPLICATION ANALYST PUMP Dilan TORRES RN.
[2020-05-10] VITALS (14 sets, daily range): BP systolic 139–180; BP diastolic 68–94; PULSE 86–101; RESP 16–20; TEMP 36.5–37.4; O2SAT 93–99; BMI 23.2
--- NOTE | 2020-05-10 06:35 | PC.NURSE ---
pt has not rested very well this shift, no pain reported from colon resection, but states that he feels like he cannot get his urine out, did have one unmeasured void early in shift, with good out put noted, clear yellow urine, pt states he is having trouble focusing on using the BR because of pumps beeping when he goes into bathroom, pt has stated that he has had issues before with urinating after surgery, no complaints of SOA or chest pain, lungs CTA, dressing in place with serosanguineous dressing noted, no difference in dressing since beginning of shift,
--- NOTE | 2020-05-10 07:00 | PC.NURSE ---
pt demanded 6 times on BODYWORK THERAPIST pump, denied 0 times, 6 mg total used
--- NOTE | 2020-05-10 07:00 | PC.NURSE ---
pt wanted to try to go to bathroom again, stated that he had better output this time and has had relief in the pressure he was feeling from having to use the BR
--- NOTE | 2020-05-10 07:25 | PC.NURSE ---
Addendum entered by Aline St RN 05/10/20 07:27: pt also states that while in bathroom he did pass a small amount of stool Original Note: IS at bedside and pt was educated on using it, verbalizes understanding
--- NOTE | 2020-05-10 08:21 | HMH.ACPN2 ---
Internal Medicine - PN: Subj *Date: 05/10/20 *Time: 10:50 Interval history: Patient stable overnight. Unfortunately had worsening lower abdominal pain. Johnson catheter placed this morning with 800 cc of fluid drained. Afebrile. Passing gas. Surgery to advance diet today to clear liquids. Patient denies any nausea or vomiting. Does have a little bit of drainage from his abdominal surgical wound. Ambulating well to bathroom independently Exam Vital signs and Labs for Last 24 Hours: Temp Pulse Resp BP Pulse Ox 97.9 F 91 H 20 166/88 H 99 05/10/20 06:00 05/10/20 06:00 05/10/20 06:00 05/10/20 06:00 05/10/20 06:00 Laboratory Results - last 24 hr 05/09/20 07:53: WBC 8.5 D, RBC 3.91 L, Hgb 12.7 L, Hct 38.4 L, MCV 98.2 H, MCH 32.5 H, MCHC 33.1, RDW 13.9, Plt Count 155, MPV 9.4, Neut % (Auto) 82.1 H, Lymph % (Auto) 10.9, [place] % (Auto) 6.6, Eos % (Auto) 0.2, Baso % (Auto) 0.1, Neut # (Auto) 7.0, Lymph # (Auto) 0.9, [place] # (Auto) 0.6, Eos # (Auto) 0.0, Baso # (Auto) 0.0 05/09/20 07:53: Sodium 139, Potassium 3.7, Chloride 107, Carbon Dioxide 26, Anion Gap 9.7, BUN 14 D, Creatinine 0.70, Estimated Creat Clear 67, Estimated GFR 110, Est GFR ( Amer) 133, Glucose 82, Calcium 8.3 L D I & O for Last 24 hours: Intake & Output 05/07/20 05/08/20 05/09/20 05/10/20 23:59 23:59 23:59 23:59 Intake Total 2800 / 2800 3007 / 3007 1457 / 1457 Output Total 700 / 700 950 / 950 Balance 2099 / 2100 2056 / 2056 1457 / 1457 Weight 72.66 kg 73.028 kg 73.595 kg Narrative: - Constitutional NAD - *Routine HEENT Exam Head: Present: normocephalic Eye: Present: EOMI, PERRL ENT: Present: mucous membranes moist - *Routine Neck Exam Present: supple. Absent: lymphadenopathy - *Routine Respiratory Exam Present: CTA bilaterally - *Routine Cardiovascular Exam Present: RRR - *Routine Abdominal Exam Present: soft, bowel sounds more active today. tenderness (Diffusely on abdomen, surgical incision midline with some bloody discharge on bandage) - *Routine Extremities Exam Absent: cyanosis, clubbing, edema - *Routine Skin Exam Present: warm; no rash; Multiple scars from previous skin lesion resections/removals - *Routine Neurological Exam Present: alert, oriented X3 Assessment and Plan (1) S/P colon resection Status: Acute Category: Surgical Code(s): Z90.49 - Acquired absence of other specified parts of digestive tract (2) Hypertension Status: Chronic Qualifiers: Hypertension type: essential hypertension Qualified Code(s): I10 - Essential (primary) hypertension Category: Medical Code(s): I10 - Essential (primary) hypertension (3) BPH (benign prostatic hyperplasia) Status: Chronic Qualifiers: Lower urinary tract symptom presence: symptoms present Category: Medical Code(s): N40.0 - Benign prostatic hyperplasia without lower urinary tract symptoms (4) Vertigo Status: Acute Category: Medical Code(s): R42 - Dizziness and giddiness (5) Urinary retention Status: Acute Category: Medical Code(s): R33.9 - Retention of urine, unspecified Johnson replaced. Initiate finasteride. Urology consult for the morning - Assessment and plan all Dx Assessment and Plan for all problems:: Overall doing well this morning. Discussed case with surgery. Johnson replaced due to urinary retention. Patient passing gas. Surgery recommended sips and chips. - Continue p.o. medications - Continue ASSISTANT BRANCH OPERATIONS MANAGER pain control. Overall patient doing well. Continues to require inpatient management
--- NOTE | 2020-05-10 08:32 | P.PN_ITS ---
Subjective Narrative: Patient's biggest complaint is significant discomfort from urinary retention. He initially did well after his Johnson catheter was removed yesterday but overnight has had increasing discomfort with the inability to void. He is passing gas and denies nausea. He has previously seen Dr. Sánchez regarding his BPH and urinary retention. Progress Note: A&P (1) S/P colon resection Status: Acute (2) Hypertension Status: Chronic (3) BPH (benign prostatic hyperplasia) Status: Chronic (4) Vertigo Status: Acute Assessment and Plan for All Diagnoses:: We will likely leave the Johnson catheter replaced. May give sips of clear liquids. Urology consult for tomorrow Exam Vital signs and Labs for Last 24 Hours: Temp Pulse Resp BP Pulse Ox 97.9 F 91 H 20 166/88 H 99 05/10/20 06:00 05/10/20 06:00 05/10/20 06:00 05/10/20 06:00 05/10/20 06:00 Laboratory Results - last 24 hr 05/09/20 07:53: WBC 8.5 D, RBC 3.91 L, Hgb 12.7 L, Hct 38.4 L, MCV 98.2 H, MCH 32.5 H, MCHC 33.1, RDW 13.9, Plt Count 155, MPV 9.4, Neut % (Auto) 82.1 H, Lymph % (Auto) 10.9, [place] % (Auto) 6.6, Eos % (Auto) 0.2, Baso % (Auto) 0.1, Neut # (Auto) 7.0, Lymph # (Auto) 0.9, [place] # (Auto) 0.6, Eos # (Auto) 0.0, Baso # (Auto) 0.0 05/09/20 07:53: Sodium 139, Potassium 3.7, Chloride 107, Carbon Dioxide 26, Anion Gap 9.7, BUN 14 D, Creatinine 0.70, Estimated Creat Clear 67, Estimated GFR 110, Est GFR ( Amer) 133, Glucose 82, Calcium 8.3 L D I & O for Last 24 hours: Intake & Output 05/07/20 05/08/20 05/09/20 05/10/20 11:59 11:59 11:59 11:59 Intake Total 2800 / 2800 1500 / 1500 2964 / 2964 Output Total 1650 / 1650 Balance 2800 / 2800 -150 / -150 2964 / 2964 Weight 161 lb 162 lb 4 oz - *Routine Abdominal Exam Present: distended
--- NOTE | 2020-05-10 10:18 | PC.NURSE ---
COUDE CATHETER INSERTED IN PT WITH NO ISSUES. 800 URINE OUTPUT NOTED. PT STATES HE HAD RELIEF INSTANTLY. DR CARTAGENA NOTIFIED.
[2020-05-10 15:44] LABS: Microscopic, Urine URINE MICROSCOPIC (MICROSCOPIC)
--- NOTE | 2020-05-10 15:49 | PC.NURSE ---
A&OX4. PT HAS TOLERATED RA WELL THROUGHOUT SHIFT. RESPIRATIONS REGULAR AND UNLABORED. LUNG SOUNDS BILATERALLY CLEAR. NO COUGH NOTED. INCENTIVE SPIROMETER AT BEDSIDE. ENCOURAGED TP USE 10 TIMES EVERY HOUR WHILE AWAKE. HAND RESIZER OPERATOR EQUAL. +2 PULSES NOTED THROUGHOUT. NO EDEMA NOTED. ACTIVE BOWEL SOUNDS HEARD IN ALL 4 QUADRANTS. SOFT AND TENDER ABDOMEN. DRESSING WAS CHANGED TODAY AND IS CURRENTLY CDI. PT REPORTS FLATUS BEING PASSED AND SMALL AMOUNTS OF STOOL BEING PASSED. QUINONEZ WAS INSERTED THIS MORNING AND PT HAS HAD A MUCH BETTER DAY. 1500 OUT THUS FAR. NO KINKS NOTED. CLEAR YELLOW URINE NOTED. PT RECEIVED SHOWER AND LINEN CHANGE TODAY. THUS FAR, PT HASN'T USED HIS PARASITOLOGIST PUMP TODAY. HE HAS REPORTED NO PAIN. HE HAD ONE VISITOR TODAY. SCUDS IN PLACE. PT HAS BEEN UP TO THE CHAIR MOST OF THE DAY. PT HAS HAD SIPS OF CLEARS TODAY AND TOLERATED WELL. BED IN LOWEST POSITION. CALL LIGHT WITHIN REACH. VSS. WILL CONTINUE TO MONITOR.
[2020-05-10 16:00] LABS: Appearance,Urine CLEAR (Clear); Bilirubin,Urine Negative (Negative); Blood, Urine 2+ (Negative); Color,Urine YELLOW (Yellow); Glucose,Urine (UA) Negative (Negative); Ketones,Urine 3+ (Negative); Leukocyte Esterase,Urine Negative (Negative); Nitrate,Urine Negative (Negative); PH,Urine 6.5 (5.0-8.5); Protein,Urine Negative (Negative); Urobilinogen,Urine 0.2 EU/dl (0.2)
[2020-05-11] VITALS (9 sets, daily range): BP systolic 139–173; BP diastolic 73–92; PULSE 82–91; RESP 16–18; TEMP 36.6–36.9; O2SAT 96–99; BMI 23.3
--- NOTE | 2020-05-11 04:40 | PC.NURSE ---
shift summary pts lung sounds are clear sats maintained 98% on room air with a rate ranging from 16-18. pts pain has decreased and has not used CONTINUOUS PILLOWCASE CUTTER pump during shift. pt has a alfaro in place with clear yellow in color urine with a total output of 2250mL. pt is alert and oriented X4 and able to ambulate to bathroom unassisted, and was able to ambulate down the hallway with a stanby assist.
[2020-05-11 06:15] LABS: Basophils % 0.2 % (0.1-2.0); Eosinophils # 0.1 K/mm3 (0.0-0.4); Eosinophils % 1.2 % (0.1-12.0); Hematocrit 34.7 % (42.0-52.0); Hemoglobin 11.5 g/dL (14.1-18.0); Lymphocytes % 16.3 % (10-50); Mean Corpuscular Hemoglobin 32.2 pg (27.0-31.2); Mean Corpuscular Volume 97.5 fl (80-94); Mean Platelet Volume 9.2 fl (7.4-10.4); Monocytes # 0.5 K/mm3 (0.1-1.0); Monocytes % 7.5 % (1.7-9.3); Neutrophils # 4.5 K/mm3 (1.8-7.8); Neutrophils % 74.8 % (37.0-80.0); Platelet Count 137 K/mm3 (142-424); Red Blood Count 3.56 M/mm3 (4.60-6.20); Red Cell Distribution Width 13.5 % (11.5-17.5)
[2020-05-11 06:21] LABS: Chloride 107 mmol/L (98-107); Sodium 141 mmol/L (136-145)
[2020-05-11 06:22] LABS: Potassium 3.7 mmoL/L (3.5-5.1)
[2020-05-11 06:25] LABS: Anion Gap 5.7 mEq/L (5-15); Blood Urea Nitrogen 8 mg/dl (9-20); Calcium 8.7 mg/dl (8.4-10.2); Carbon Dioxide 32 mmol/L (22.0-30.0); Creatinine Clearance Estimated 67 mL/min (50-200); Estimated Glomerular Filt Rate 132 ml/min (>60); GFR (African American) 159 ML/MIN (>60); Glucose 131 mg/dl (74-100)
--- NOTE | 2020-05-11 07:48 | P.PN_ITS ---
Subjective Narrative: Patient feels much better after Johnson catheter placed. This gave him some relief. He has been taking some minimal clear liquids. He has had some liquid stool and flatus. Progress Note: A&P (1) S/P colon resection Status: Acute (2) Hypertension Status: Chronic (3) BPH (benign prostatic hyperplasia) Status: Chronic (4) Vertigo Status: Acute (5) Urinary retention Status: Acute Assessment and Plan for All Diagnoses:: Clear liquid diet. Will consult urology regarding recommendations for urinary retention Exam Vital signs and Labs for Last 24 Hours: Temp Pulse Resp BP Pulse Ox 98.2 F 89 16 151/80 H 97 05/11/20 07:36 05/11/20 07:36 05/11/20 07:36 05/11/20 07:36 05/11/20 07:36 Laboratory Results - last 24 hr 05/10/20 15:00: Urine Color Yellow, Urine Appearance Clear, Urine pH 6.5, Ur Specific [place] 1.020, Urine Protein Negative, Urine Glucose (UA) Negative, Urine Ketones 3+, Urine Blood 2+, Urine Nitrate Negative, Urine Bilirubin Negative, Urine Urobilinogen 0.2, Ur Leukocyte Esterase Negative, Urine RBC 3-5, Urine WBC None, Ur Squamous Epith Cells None, Urine Bacteria None 05/11/20 06:05: WBC 6.0 D, RBC 3.56 L, Hgb 11.5 L, Hct 34.7 L, MCV 97.5 H, MCH 32.2 H, MCHC 33.0, RDW 13.5, Plt Count 137 L, MPV 9.2, Neut % (Auto) 74.8, Lymph % (Auto) 16.3, [place] % (Auto) 7.5, Eos % (Auto) 1.2, Baso % (Auto) 0.2, Neut # (Auto) 4.5, Lymph # (Auto) 1.0, [place] # (Auto) 0.5, Eos # (Auto) 0.1, Baso # (Auto) 0.0 05/11/20 06:05: Sodium 141, Potassium 3.7, Chloride 107, Carbon Dioxide 32 H D, Anion Gap 5.7, BUN 8 L D, Creatinine 0.60 L, Estimated Creat Clear 67, Estimated GFR 132, Est GFR ( Amer) 159, Glucose 131 H, Calcium 8.7 I & O for Last 24 hours: Intake & Output 05/08/20 05/09/20 05/10/20 05/11/20 11:59 11:59 11:59 11:59 Intake Total 2800 / 2800 1500 / 1500 2964 / 2964 1639 / 1639 Output Total 1650 / 1650 4450 / 4450 Balance 2800 / 2800 -150 / -150 2964 / 2964 -2811 / -2811 Weight 161 lb 162 lb 4 oz - *Routine Abdominal Exam Present: soft
--- NOTE | 2020-05-11 08:17 | HMH.ACPN2 ---
Internal Medicine - PN: Subj *Date: 05/11/20 *Time: 08:17 Interval history: Internal medicine consult note: Patient did well overnight, has been up walking around, doing all of his activities of daily living. Johnson catheter remains in place. Events of yesterday noted. Exam Vital signs and Labs for Last 24 Hours: Temp Pulse Resp BP Pulse Ox 98.2 F 89 16 151/80 H 97 05/11/20 07:36 05/11/20 07:36 05/11/20 07:36 05/11/20 07:36 05/11/20 07:36 Laboratory Results - last 24 hr 05/10/20 15:00: Urine Color Yellow, Urine Appearance Clear, Urine pH 6.5, Ur Specific [place] 1.020, Urine Protein Negative, Urine Glucose (UA) Negative, Urine Ketones 3+, Urine Blood 2+, Urine Nitrate Negative, Urine Bilirubin Negative, Urine Urobilinogen 0.2, Ur Leukocyte Esterase Negative, Urine RBC 3-5, Urine WBC None, Ur Squamous Epith Cells None, Urine Bacteria None 05/11/20 06:05: WBC 6.0 D, RBC 3.56 L, Hgb 11.5 L, Hct 34.7 L, MCV 97.5 H, MCH 32.2 H, MCHC 33.0, RDW 13.5, Plt Count 137 L, MPV 9.2, Neut % (Auto) 74.8, Lymph % (Auto) 16.3, [place] % (Auto) 7.5, Eos % (Auto) 1.2, Baso % (Auto) 0.2, Neut # (Auto) 4.5, Lymph # (Auto) 1.0, [place] # (Auto) 0.5, Eos # (Auto) 0.1, Baso # (Auto) 0.0 05/11/20 06:05: Sodium 141, Potassium 3.7, Chloride 107, Carbon Dioxide 32 H D, Anion Gap 5.7, BUN 8 L D, Creatinine 0.60 L, Estimated Creat Clear 67, Estimated GFR 132, Est GFR ( Amer) 159, Glucose 131 H, Calcium 8.7 I & O for Last 24 hours: Intake & Output 05/08/20 05/09/20 05/10/20 05/11/20 11:59 11:59 11:59 11:59 Intake Total 2800 / 2800 1500 / 1500 2964 / 2964 1639 / 1639 Output Total 1650 / 1650 4450 / 4450 Balance 2800 / 2800 -150 / -150 2964 / 2964 -2811 / -2811 Weight 161 lb 162 lb 4 oz Narrative: Alert, oriented, pleasant and talkative. ENT exam clear. Lungs clear. Heart rate regular. Abdominal incision looks great. Abdomen soft and minimally tender. No distal extremity edema or clubbing or cyanosis. Neurologic exam intact Assessment and Plan (1) S/P colon resection Status: Acute Category: Surgical Code(s): Z90.49 - Acquired absence of other specified parts of digestive tract (2) Hypertension Status: Chronic Qualifiers: Hypertension type: essential hypertension Qualified Code(s): I10 - Essential (primary) hypertension Category: Medical Code(s): I10 - Essential (primary) hypertension (3) BPH (benign prostatic hyperplasia) Status: Chronic Qualifiers: Lower urinary tract symptom presence: symptoms present Category: Medical Code(s): N40.0 - Benign prostatic hyperplasia without lower urinary tract symptoms (4) Vertigo Status: Acute Category: Medical Code(s): R42 - Dizziness and giddiness (5) Urinary retention Status: Acute Category: Medical Code(s): R33.9 - Retention of urine, unspecified - Assessment and plan all Dx Assessment and Plan for all problems:: Blood pressure elevated but in the context of hospitalization, postsurgical pain and Johnson placement. Watch closely. Urology consultation today. No objection to discharge once surgery has cleared patient.
--- NOTE | 2020-05-11 10:42 | PC.NURSE ---
PCS D/C WITH Lynette GABRIEL RN. PT HAD NOT ADMIN ANY MEDICATION.
--- NOTE | 2020-05-11 11:21 | PC.NURSE ---
LIVESTOCK TRUCKER MORPHINE WASTED IN [facility] WITNESSED BY Lynette GABRIEL AND ANTOLIN FROM PHARMACY
--- NOTE | 2020-05-11 16:58 | HMH.CONS ---
*Admission Date: 05/08/20 *Reason for consult:: Postoperative urinary retention *History of present illness: Patient is a 74-year-old white male with a history of BPH. He underwent colon resection 2 days ago and his Johnson catheter was removed postop day 1 the began having some suprapubic pain discomfort and could not void. Johnson catheter was replaced with 1 L residual noted. Patient gives a history of prior postoperative urinary retention during the inguinal hernia surgery 2 years ago. He is on tamsulosin and finasteride was added yesterday. He does give a history of urinary slowing, urgency and nocturia at baseline. [facility] History Medical History: Reports:: BPH, Hyperlipidemia, Hypertension Denies:: Cancer, Diabetes Mellitus Type 1, Diabetes Mellitus Type 2, Internal Pacemaker, MRSA, Seizures *Have you ever received a pneumonia vaccine?: Yes *Have you received a flu vaccine this season?: Yes Other Medical History: Denies: Blood Transfusion Reaction Anesthesia experience/problems:: none Laterality Cases: Bilateral: Carotid Endarterectomy Other Surgeries: Yes: Cancer Surgery, Colonoscopy, Colon Resection, Hernia Repair, Skin Cancer Excision. No: Pacemaker Amputation: No Fractures: No - *Social History Last grade of school completed: Some college Smoking Status: Never smoker Alcohol Intake: never Alcohol Intake Frequency:: a few times a month Substance Use Type: denies use *Occupational Status:: retired Housing: house Household Members: spouse *Travel in the last 8 weeks: None Family Hx:: Unable to obtain Review of Systems - Review of Systems Review of systems:: pertinent systems reviewed and negative unless documented below Meds Home Medications Medication Instructions Recorded Confirmed Type atorvastatin 10 mg tablet 10 mg PO DAILY 04/13/18 05/08/20 History cholecalciferol (vitamin D3) 25 1,000 unit PO DAILY 04/13/18 05/08/20 History mcg (1,000 unit) capsule saw palmetto 450 mg capsule 450 mg PO BID 04/13/18 05/08/20 History tamsulosin 0.4 mg capsule 0.4 mg PO HS 04/13/18 05/08/20 History C,E,Zinc,Copper 11/Ndehs1w/Lut 1 each PO DAILY 05/05/20 05/08/20 History [Ocuvite Adult 50 Plus Softgel] Allergies Allergy/AdvReac Type Severity Reaction Status Date / Time No Known Allergies Allergy Verified 05/08/20 06:24 Exam Vital signs and Labs for Last 24 Hours: Temp Pulse Resp BP Pulse Ox 98.2 F 91 H 18 173/92 H 98 05/11/20 15:40 05/11/20 15:40 05/11/20 15:40 05/11/20 15:40 05/11/20 15:40 Laboratory Results - last 24 hr 05/11/20 06:05: WBC 6.0 D, RBC 3.56 L, Hgb 11.5 L, Hct 34.7 L, MCV 97.5 H, MCH 32.2 H, MCHC 33.0, RDW 13.5, Plt Count 137 L, MPV 9.2, Neut % (Auto) 74.8, Lymph % (Auto) 16.3, [place] % (Auto) 7.5, Eos % (Auto) 1.2, Baso % (Auto) 0.2, Neut # (Auto) 4.5, Lymph # (Auto) 1.0, [place] # (Auto) 0.5, Eos # (Auto) 0.1, Baso # (Auto) 0.0 05/11/20 06:05: Sodium 141, Potassium 3.7, Chloride 107, Carbon Dioxide 32 H D, Anion Gap 5.7, BUN 8 L D, Creatinine 0.60 L, Estimated Creat Clear 67, Estimated GFR 132, Est GFR ( Amer) 159, Glucose 131 H, Calcium 8.7 I & O for Last 24 hours: Intake & Output 05/08/20 05/09/20 05/10/20 05/11/20 23:59 23:59 23:59 23:59 Intake Total 2800 / 2800 3007 / 3007 1879 / 1879 1217 / 1217 Output Total 700 / 700 950 / 950 2700 / 2700 1750 / 1750 Balance 2100 / 2099 2057 / 205 -821 / -821 -533 / -533 Weight 72.66 kg 73.028 kg 73.595 kg 74 kg - Constitutional no acute distress - *Routine HEENT Exam Head: Present: normocephalic Eye: Present: EOMI, PERRL ENT: Present: mucous membranes moist - *Routine Neck Exam Present: supple. Absent: lymphadenopathy - *Routine Respiratory Exam Present: CTA bilaterally - *Routine Cardiovascular Exam Present: RRR - *Routine Abdominal Exam Present: soft, normoactive bowel sounds. Absent: tenderness - *Routine Extremities Exam Absent: cyanosis, clubbing, edema - *Routine Skin Exam Present: warm. A
--- NOTE | 2020-05-11 20:14 | PC.NURSE ---
HE IS AOX4, ABLE TO MAKE NEEDS KNOWN TO STAFF HAS AMBULATED IN HALLWAY INDEPENDENTLY. VSS T/O SHIFT. NO NEEDS AT THIS TIME.
--- NOTE | 2020-05-12 04:30 | PC.NURSE ---
pt is AxOx4, has ambulated in hallway and to bathroom independently, lungs CTA, remains on room air, tolerating clear liquid diet, no complaints of pain this shift, dressing in place, C/D/I, alfaro in place, draining clear yellow urine, 3200 mL out so far this shift, pt states he had a bowel movement this shift and has been passing gas, bowel sounds are active
[2020-05-12 05:25] VITALS: BMI 23.3
--- NOTE | 2020-05-12 07:01 | HMH.GSPN ---
Subjective Narrative: Sleeping. Reportedly passing gas and having bowel movement. Tolerating clear liquids. Seen by urology. Progress Note: A&P (1) S/P colon resection Status: Acute (2) Hypertension Status: Chronic (3) BPH (benign prostatic hyperplasia) Status: Chronic (4) Vertigo Status: Acute (5) Urinary retention Status: Acute (6) Postoperative urinary retention Status: Acute Assessment and Plan for All Diagnoses:: Advance diet. Exam Vital signs and Labs for Last 24 Hours: Temp Pulse Resp BP Pulse Ox 97.9 F 91 H 17 153/77 H 99 05/11/20 20:00 05/11/20 20:00 05/11/20 20:00 05/11/20 20:00 05/11/20 20:00 I & O for Last 24 hours: Intake & Output 05/09/20 05/10/20 05/11/20 05/12/20 11:59 11:59 11:59 11:59 Intake Total 1500 / 1500 2964 / 2964 1639 / 1639 600 / 600 Output Total 1650 / 1650 4450 / 4450 5350 / 5350 Balance -150 / -150 2964 / 2964 -2811 / -2811 -4750 / -4750 Weight 161 lb 162 lb 4 oz 163 lb 2.273 oz
[2020-05-12 08:00] VITALS: BP 152/88; PULSE 89; RESP 18; TEMP 36.7; O2SAT 98
--- NOTE | 2020-05-12 08:16 | HMH.ACPN2 ---
Internal Medicine - PN: Subj *Date: 05/12/20 *Time: 08:16 Interval history: Patient doing well this morning, sitting at bedside eating breakfast. Had a bowel movement yesterday. Passing gas regularly. Still has Johnson catheter in place but would like to have it removed today. Urology saw patient yesterday and recommended removing Johnson after instilling 300 cc of fluid prior to removal to monitor for voiding capability and residual fluid retention. Afebrile. Pain well controlled. Ambulating independently. Exam Vital signs and Labs for Last 24 Hours: Temp Pulse Resp BP Pulse Ox 98.1 F 89 18 152/88 H 98 05/12/20 08:00 05/12/20 08:00 05/12/20 08:00 05/12/20 08:00 05/12/20 08:00 I & O for Last 24 hours: Intake & Output 05/09/20 05/10/20 05/11/20 05/12/20 23:59 23:59 23:59 23:59 Intake Total 3007 / 3007 1879 / 1879 1697 / 1817 1830 / 1830 Output Total 950 / 950 2700 / 2700 6400 / 6400 700 / 700 Balance 2057 / 205 -821 / -821 -4703 / -4583 1130 / 1130 Weight 73.028 kg 73.595 kg 74 kg 74 kg Narrative: - Constitutional NAD - *Routine HEENT Exam Head: Present: normocephalic Eye: Present: EOMI, PERRL ENT: Present: mucous membranes moist - *Routine Neck Exam Present: supple. Absent: lymphadenopathy - *Routine Respiratory Exam Present: CTA bilaterally - *Routine Cardiovascular Exam Present: RRR - *Routine Abdominal Exam Present: soft, bowel sounds more active today. Tenderness around surgical site, dressing clean dry and intact. -Johnson catheter in place draining light yellow to clear urine - *Routine Extremities Exam Absent: cyanosis, clubbing, edema - *Routine Skin Exam Present: warm; no rash; Multiple scars from previous skin lesion resections/removals - *Routine Neurological Exam Present: alert, oriented X3 Assessment and Plan (1) S/P colon resection Status: Acute Category: Surgical Code(s): Z90.49 - Acquired absence of other specified parts of digestive tract (2) Hypertension Status: Chronic Qualifiers: Hypertension type: essential hypertension Qualified Code(s): I10 - Essential (primary) hypertension Category: Medical Code(s): I10 - Essential (primary) hypertension (3) BPH (benign prostatic hyperplasia) Status: Chronic Qualifiers: Lower urinary tract symptom presence: symptoms present Category: Medical Code(s): N40.0 - Benign prostatic hyperplasia without lower urinary tract symptoms (4) Vertigo Status: Acute Category: Medical Code(s): R42 - Dizziness and giddiness (5) Urinary retention Status: Acute Category: Medical Code(s): R33.9 - Retention of urine, unspecified (6) Postoperative urinary retention Status: Acute Category: Medical Code(s): N99.89 - Other postprocedural complications and disorders of genitourinary system; R33.8 - Other retention of urine - Assessment and plan all Dx Assessment and Plan for all problems:: Patient doing very well this morning. Tolerating p.o. intake. Having bowel movements. Will remove catheter this morning to see if he is able to void independently. If unable to void, discussed replacing catheter with instructions on how to remove in a couple days once home. We will also provide samples of in and out catheters in case there is further retention at home. Close follow-up with urology recommended. From our perspective, patient is medically ready to discharge home and he is requesting to go home today given the impending bad weather and his concern that he will be stuck here for several days if he does not get discharged by this afternoon. As he is tolerating oral intake, passing gas, having bowel movements, we do not see a contraindication. Would continue finasteride and tamsulosin (will need new prescription for finasteride, sent). Medicine will sign off at this time. Thank you for consulting/including us in the care of this patient
--- NOTE | 2020-05-12 10:49 | HMH.CONFU ---
Internal Medicine - PN: Subj *Date: 05/12/20 *Time: 10:49 Interval history: Patient without complaints overnight. Vital signs are stable and he is afebrile. Johnson is draining crystal-clear urine. He is anxious to get the catheter out this morning. Exam Vital signs and Labs for Last 24 Hours: Temp Pulse Resp BP Pulse Ox 98.1 F 89 18 152/88 H 98 05/12/20 08:00 05/12/20 08:00 05/12/20 08:00 05/12/20 08:00 05/12/20 08:00 I & O for Last 24 hours: Intake & Output 05/09/20 05/10/20 05/11/20 05/12/20 23:59 23:59 23:59 23:59 Intake Total 3007 / 3007 1879 / 1879 1697 / 1817 1830 / 1830 Output Total 950 / 950 2700 / 2700 6400 / 6400 700 / 700 Balance 2057 / 2057 -821 / -821 -4703 / -4583 1130 / 1130 Weight 73.028 kg 73.595 kg 74 kg 74 kg - *Routine HEENT Exam Head: Present: normocephalic Eye: Present: EOMI, PERRL ENT: Present: mucous membranes moist - *Routine Neck Exam Present: supple. Absent: lymphadenopathy - *Routine Respiratory Exam Present: CTA bilaterally - *Routine Cardiovascular Exam Present: RRR - *Routine Abdominal Exam Present: soft, normoactive bowel sounds. Absent: tenderness - *Routine Extremities Exam Absent: cyanosis, clubbing, edema - *Routine Skin Exam Present: warm. Absent: rash - *Routine Neurological Exam Present: alert, oriented X3 Assessment and Plan (1) S/P colon resection Status: Acute Category: Surgical Code(s): Z90.49 - Acquired absence of other specified parts of digestive tract (2) Hypertension Status: Chronic Qualifiers: Hypertension type: essential hypertension Qualified Code(s): I10 - Essential (primary) hypertension Category: Medical Code(s): I10 - Essential (primary) hypertension (3) BPH (benign prostatic hyperplasia) Status: Chronic Qualifiers: Lower urinary tract symptom presence: symptoms present Category: Medical Code(s): N40.0 - Benign prostatic hyperplasia without lower urinary tract symptoms (4) Vertigo Status: Acute Category: Medical Code(s): R42 - Dizziness and giddiness (5) Urinary retention Status: Acute Category: Medical Code(s): R33.9 - Retention of urine, unspecified (6) Postoperative urinary retention Status: Acute Category: Medical Code(s): N99.89 - Other postprocedural complications and disorders of genitourinary system; R33.8 - Other retention of urine 74-year-old white male with history of BPH and acute postoperative urinary retention after recent colon surgery. Voiding trial to be performed today and nursing staff to instill 300 cc or more into his bladder and then remove the Johnson catheter. If he is able to void at least half of that he may go home without his catheter. Patient does request some catheters for in and out catheterization if he should require that. We will see him back in the office in 2 to 3 weeks.
--- NOTE | 2020-05-12 10:57 | HMH.DCSUM ---
General - General Admission date:: 05/08/20 Discharge date: 05/12/20 HPI HPI: Patient is a 74-year-old male who had undergone colonoscopy on 12/03/2019 for symptoms of rectal bleeding. He was found to have distal rectal prolapsing polyp which was removed but he also had significant adenomatous polyp burden throughout the colon and most concerning was a nearly circumferential lesion near the presumed hepatic flexure which was unable to be removed. Initially the patient wished to refrain from surgery and repeat colonoscopy was done on 01/28/2020 at which time he had several adenomatous polyps and this lesion was unable to be once again removed. The area was marked. Plan was made to proceed with segmental colon resection. Hospital Course Hospital Course: Patient was taken to the operating room on 05/08/2020 at which time he underwent limited exploratory laparotomy. The area in question was identified in the midportion of the transverse colon. He underwent segmental resection with primary end-to-end handsewn anastomosis. Please see operative dictation for complete details. He was admitted for inpatient management. He was given ice chips which he tolerated without difficulty. The following day he had his Johnson catheter removed. Initially he was voiding however he then developed urinary retention overnight on postoperative day #1. He was quite uncomfortable and had Johnson catheter replaced on postoperative day #2 at which time he had approximately 1 L of urine returned. Internal medicine consultation had been ordered and he was seen by [facility] internal medicine. He did have finasteride added to his medication regimen. Urology saw the patient in consultation the following day on postoperative day #3. Recommendations were given. Patient had been given a clear liquid diet. He was tolerating this without difficulty and his bowels were moving. On the morning of postoperative day #4 he was advanced to full liquid diet which she tolerated without difficulty. He underwent voiding trial and had the urinary catheter removed. He voided without difficulty. Arrangements were made for discharge home on postoperative day #4. 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 Objective Vital signs: Temp Pulse Resp BP Pulse Ox 98.1 F 89 18 152/88 H 98 05/12/20 08:00 05/12/20 08:00 05/12/20 08:00 05/12/20 08:00 05/12/20 08:00 DS: Diagnosis - Discharge Diagnosis (1) S/P colon resection Status: Acute (2) Hypertension Status: Chronic (3) BPH (benign prostatic hyperplasia) Status: Chronic (4) Vertigo Status: Acute (5) Urinary retention Status: Acute (6) Postoperative urinary retention Status: Acute Discharge Plan - Patient Discharge Instructions ACTIVITY: No heavy lifting DIET: other Additional Instructions: Low Residue Diet - Follow up Plan Follow up with: Craig Wyman MD [Staff Physician] - 2 weeks Rajesh Ramos MD [Staff Physician] - 05/22/20 Disposition: Home, Self-Half-Way Medications: Home Medications Medication Instructions Recorded Confirmed Type atorvastatin 10 mg tablet 10 mg PO DAILY 04/13/18 05/08/20 History cholecalciferol (vitamin D3) 25 1,000 unit PO DAILY 04/13/18 05/08/20 History mcg (1,000 unit) capsule saw palmetto 450 mg capsule 450 mg PO BID 04/13/18 05/08/20 History tamsulosin 0.4 mg capsule 0.4 mg PO HS 04/13/18 05/08/20 History C,E,Zinc,Copper 11/Fptds1k/Lut 1 each PO DAILY 05/05/20 05/08/20 History [Ocuvite Adult 50 Plus Softgel] Finasteride [Proscar 5mg Tablet] 5 mg PO HS 30 Days #30 tab 05/12/20 Rx Prescriptions/Medication Reconciliation: New Finasteride [Proscar 5mg Tablet] 5 mg PO HS 30 Days #30 tab Continued tamsulosin 0.4 mg capsule 0.4 mg PO HS cholecalciferol (vitamin D3) 25 mcg (1,000 unit) capsule 1,000 unit PO DAILY saw palmetto 450 mg capsule 450 mg PO BID
== END 2020-05-12 13:16 | disposition home or self-care (01) | DRG 346 ==
LOC: 2ND 06:36
PROVIDERS: Admitting Provider Surgery; PCP Internal Medicine Adolescent Medicine; Visit Provider Surgery
PROC: 0DBL0ZX Excision of Transverse Colon, Open Approach, Diagnostic (ICD-10-PCS; CPT 44140; principal; 2020-05-08 07:30)
DX: D12.3 Benign neoplasm of transverse colon (principal); I10 Essential (primary) hypertension; N99.89 Other postprocedural complications and disorders of genitourinary system; R33.8 Other retention of urine; Z79.899 Other long term (current) drug therapy; N40.0 Benign prostatic hyperplasia without lower urinary tract symptoms
CPT/HCPCS: 44140; 36415; 80048; 81001; 85025; 86328; 88309; 96374; J0131; J1335; J2405

== ENCOUNTER → 2021-06-01 10:33 | Outpatient (CLI) | payer MEDICARE, OTHER, SELFPAY ==
[2021-06-01 13:30] LABS: Prostate Specific Ag Screen 2.8 ng/ml (0.0-4.0)
== END ==
PROVIDERS: PCP Internal Medicine Adolescent Medicine; Visit Provider Urology
DX: Z12.5 Encounter for screening for malignant neoplasm of prostate (principal)
CPT/HCPCS: 36415; G0103

== ENCOUNTER → 2022-02-10 11:42 | Outpatient (CLI) | payer MEDICARE, OTHER, SELFPAY ==
--- NOTE | 2022-02-10 11:52 | XR_ITS ---
FINAL REPORT CLINICAL HISTORY: pain proximal left forearm FINDINGS: 2 views of the left forearm were obtained. There is no acute fracture or dislocation. The joint spaces are intact. There is no soft tissue abnormality. IMPRESSION: No acute abnormality. Reviewed, Interpreted and Dictated by Caleb Omer MD Transcribed by Satish Alicia Authenticated and . [facility]
== END ==
PROVIDERS: PCP Family Medicine; Visit Provider Family Medicine
DX: M79.602 Pain in left arm (principal)
CPT/HCPCS: 73090

== ENCOUNTER 2022-05-23 14:53 | Observation (INO) | payer MEDICARE, OTHER, SELFPAY ==
[2022-05-23] VITALS (7 sets, daily range): BP systolic 135–174; BP diastolic 78–95; PULSE 84–101; RESP 17–18; TEMP 36.7–37; O2SAT 98–100; BMI 22.7; BMI 22.5
--- NOTE | 2022-05-23 15:19 | HMH.EDGENADL ---
Discharge Plan Disposition Patient Disposition: Admitted As Inpatient Prescriptions Prescriptions: No Action atorvastatin [Lipitor] 10 mg tablet 10 mg PO DAILY tamsulosin 0.4 mg capsule 0.4 mg PO HS cholecalciferol (vitamin D3) 1,000 unit capsule 1,000 unit PO DAILY saw palmetto 450 mg capsule 450 mg PO BID ibuprofen 600 mg tablet 600 mg PO Q8H PRN (Reason: Pain) cephalexin 500 mg capsule 500 mg PO QID finasteride 5 MG tablet 5 mg PO HS Referrals Follow up/Referrals: Oscar Marquez MD [Primary Care Provider] - See instructions Clinical Impressions Clinical Impression: Cellulitis and abscess of left leg Instructions Patient Instructions: DI for Laceration Repair Discharge ED Provider: Delvis Gutierrez General Adult HPI General Chief complaint: Wound/Laceration Stated complaint: left leg pain. no accident Time Seen by Provider: 05/23/22 15:19 History of Present Illness HPI narrative: Patient is a 76-year-old male presenting with erythema and pain on the left anterior knee and lower leg. States that the end of last week he started having what appeared to be an infected hair follicle on the inferior and lateral pole of his left knee. Went to his primary care doctor and was given Keflex. Has only had significant worsening of his swelling in his anterior knee circumferentially as well as extending all the way down his anterior medial and lateral lower leg. He also had a fever of 100.9 a few days ago on Monday. States he has been afebrile since that time. Otherwise feels good at the moment. He does not have any significant pain with range of motion of that knee other than stretching of the skin. States he is most comfortable in an extended position. And no pain with any axial loading from history. No history of gout. Related Data Home Medications Medication Instructions Recorded Confirmed atorvastatin 10 mg tablet (Lipitor) 10 mg PO DAILY Cholesterol 04/13/18 05/23/22 cholecalciferol (vitamin D3) 25 1,000 unit PO DAILY Supplement 04/13/18 05/23/22 mcg (1,000 unit) capsule saw palmetto 450 mg capsule 450 mg PO BID Supplement 04/13/18 05/23/22 tamsulosin 0.4 mg capsule 0.4 mg PO HS bladder 04/13/18 05/23/22 ibuprofen 600 mg tablet 600 mg PO Q8H PRN Pain 05/20/22 05/23/22 cephalexin 500 mg capsule 500 mg PO QID Infection 05/23/22 05/23/22 finasteride 5 mg tablet 5 mg PO HS PROSTATE 05/23/22 05/23/22 Allergies Allergy/AdvReac Type Severity Reaction Status Date / Time No Known Allergies Allergy Verified 05/23/22 13:38 [facility] Disclaimer: The information contained in this section may have been updated after the patient was seen, as this information can be updated by other users. Medical History Basal cell carcinoma BPH (benign prostatic hyperplasia) Hypertension Postoperative urinary retention Urinary retention Vertigo Surgical History S/P colon resection Family History Mother Cancer Breast, brain Father Coronary artery disease Heart attack Social History (Updated 05/23/22 @ 15:24 by Savannah Thompson RN) Smoking Status: Never smoker second hand exposure: No alcohol intake: current counseling given: Yes substance use type: denies use current occupational status: employed Travel in the last 8 weeks: None household members: spouse housing: house marital status: current occupation: [employer] current occupational exposures/hazards: No caffeine: Yes ROS Obtained: Yes All systems reviewed & no additional complaints except as documented Physical Exam General General appearance: alert and in no apparent distress Respiratory Respiratory exam: Present normal lung sounds bilaterally; Absent respiratory distress, wheez
--- NOTE | 2022-05-23 15:19 | PC.NURSE ---
DR WELCH AT BEDSIDE FOR EVALUATION
[2022-05-23 16:00] LABS: Basophils % 0.3 % (0.1-2.0); Chloride 107 mmol/L (98-107); Eosinophils # 0.1 K/mm3 (0.0-0.4); Eosinophils % 0.8 % (0.1-12.0); Hematocrit 35.8 % (42.0-52.0); Hemoglobin 11.8 g/dL (14.1-18.0); Lymphocytes # 1.2 K/mm3 (0.7-4.5); Lymphocytes % 10.7 % (10-50); Mean Corpuscular HGB Conc 33.1 g/dL (31.8-35.4); Mean Corpuscular Hemoglobin 32.2 pg (27.0-31.2); Mean Corpuscular Volume 97.3 fl (80-94); Monocytes # 0.7 K/mm3 (0.1-1.0); Monocytes % 5.8 % (1.7-9.3); Neutrophils # 9.3 K/mm3 (1.8-7.8); Neutrophils % 82.4 % (37.0-80.0); Platelet Count 321 K/mm3 (142-424); Red Blood Count 3.68 M/mm3 (4.60-6.20); Red Cell Distribution Width 13.9 % (11.5-17.5); White Blood Count 11.3 K/mm3 (4.8-10.8)
[2022-05-23 16:01] LABS: Potassium 4.3 mmoL/L (3.5-5.1); Sodium 142 mmol/L (136-145)
[2022-05-23 16:03] LABS: Alanine Aminotransferase 32 U/L (12-78); Alkaline Phosphatase 86 U/L (38-126); Aspartate Amino Transferase 45 U/L (17-59); Bilirubin,Total 0.5 mg/dl (0.2-1.3); Blood Urea Nitrogen 14 mg/dl (9-20); Creatinine Clearance Estimated 66 mL/min (50-200); Estimated Glomerular Filt Rate 110 ml/min (>60); GFR (African American) 133 ML/MIN (>60)
[2022-05-23 16:04] LABS: Albumin/Globulin Ratio 1.1 (1.1-1.8); Anion Gap 11.3 mEq/L (5-15); Calcium 8.6 mg/dl (8.4-10.2); Carbon Dioxide 28 mmol/L (22.0-30.0); Globulin 3.6 g/dL (1.3-3.2); Glucose 95 mg/dl (74-100); Lactic Acid 0.9 mmol/L (0.7-2.1); Total Protein,Serum 7.6 g/dl (6.3-8.2)
[2022-05-23 16:04] LABS: Coronavirus 19, PCR Not Detected (NotDetected); Influenza A, PCR Not Detected (NotDetected); Influenza B, PCR Not Detected (NotDetected)
--- NOTE | 2022-05-23 16:33 | PC.NURSE ---
DR WELCH SPEAKING WITH DR. CARTAGENA FOR ADMISSION
--- NOTE | 2022-05-23 16:38 | PC.NURSE ---
URINAL PROVIDED, NO FURTHER NEEDS AT THIS TIME
--- NOTE | 2022-05-23 17:15 | PC.NURSE ---
REPORT GIVEN TO Liam CRUZ RN
--- NOTE | 2022-05-23 17:58 | PC.NURSE ---
patient arrived by w/c to room from ED
--- NOTE | 2022-05-23 18:49 | PC.WOUNDNOTE ---
left knee incision
--- NOTE | 2022-05-23 18:50 | PC.WOUNDNOTE ---
left knee incision
--- NOTE | 2022-05-23 18:50 | PC.WOUNDNOTE ---
left knee abscess, cellulitis
--- NOTE | 2022-05-23 20:24 | CT_ITS ---
PROCEDURE INFORMATION: Exam: CT Left Lower Extremity Without Contrast, Knee Exam date and time: 05/23/2022 9:33 PM Age: 76 years old Clinical indication: Swelling or effusion of joint; Knee; Additional info: Erythema, swelling knee, concern for joint TECHNIQUE: Imaging protocol: CT of the Left lower extremity without contrast was performed. Exam focused on the knee. 3D rendering (Not supervised by radiologist): MIP and/or 3D reconstructed images were created by the technologist. Radiation optimization: All CT scans at this facility use at least one of these dose optimization techniques: automated exposure control; mA and/or kV adjustment per patient size (includes targeted exams where dose is matched to clinical indication); or iterative reconstruction. Other protocol: This patient has received 0 known CTs and 0 known cardiac nuclear medicine studies in the 12 months prior to the current study. COMPARISON: No relevant prior studies available. FINDINGS: Limitations: Lack of intravenous contrast. Bones/joints: No acute fracture. No dislocation. No definite cortical destruction. No significant joint effusion. Soft tissues: Soft tissue irregularity along anterior soft tissues with packing material. Mild skin thickening. Moderate to extensive stranding/fluid within subcutaneous tissues. Several foci of air within anterior subcutaneous tissues. Tiny calcification or foreign body within anterior subcutaneous tissues. Limited evaluation for abscess due to lack of intravenous contrast. IMPRESSION: Findings compatible with cellulitis. Limited evaluation for abscess due to lack of intravenous contrast. Air within anterior soft tissues may be iatrogenic or related to infection by gas-forming organism.
--- NOTE | 2022-05-23 20:31 | EXP.HP ---
History of Present Illness *Admission Date: 05/23/22 *Reason for visit:: Redness, pain and warmth left knee *History of present illness: Mr. Silver is a 76-year-old male with a past medical history of BPH and Hyperlipidemia. He presented to [facility] through the ER due to erythema, pain and swelling to the left lower extremity x 1 week duration. He reports that the area on the left anterior knee had what he thought was an infected hair, he reports that he went to see his PCP and was prescribed Keflex, but the area continued to worsen and became painful. He went into the ER for evaluation. In the ER, he had an I/D of the area with purulent material that was sent for culture. He was given Vancomycin empirically in the ER. He was admitted with initial impression: Left Knee Cellulitis. [facility] Disclaimer: The information contained in this section may have been updated after the patient was seen, as this information can be updated by other users. Medical History Basal cell carcinoma BPH (benign prostatic hyperplasia) Hypertension Postoperative urinary retention Urinary retention Vertigo Surgical History S/P colon resection Family History Mother Cancer Father Coronary artery disease Heart attack Social History Smoking Status: Never smoker second hand exposure: No alcohol intake: current counseling given: Yes substance use type: denies use current occupational status: employed Travel in the last 8 weeks: None household members: spouse housing: house marital status: current occupation: [employer] current occupational exposures/hazards: No caffeine: Yes Review of Systems Review of Systems Review of systems:: pertinent systems reviewed and negative unless documented below Constitutional Constitutional: Reports system reviewed and no additional complaints, except as documented Eyes Eyes: Reports system reviewed and no additional complaints, except as documented ENT Ears, Nose, Mouth, and Throat: Reports system reviewed and no additional complaints, except as documented *Cardiovascular Cardiovascular: Reports system reviewed and no additional complaints, except as documented *Respiratory Respiratory: Reports system reviewed and no additional complaints, except as documented *Gastrointestinal Gastrointestinal: Reports system reviewed and no additional complaints, except as documented *Genitourinary Genitourinary: Reports system reviewed and no additional complaints, except as documented *Musculoskeletal Musculoskeletal: Reports joint swelling, Reports limited range of motion and Reports myalgias Integumentary/Breasts Skin/Breast: Reports erythema *Neurologic Neurologic: Reports system reviewed and no additional complaints, except as documented Psychiatric Psychiatric: Reports system reviewed and no additional complaints, except as documented Endocrine Endocrine: Reports system reviewed and no additional complaints, except as documented Hematologic/Lymphatic Hematologic/Lymphatic: Reports system reviewed and no additional complaints, except as documented Allergic/Immunologic Allergic/Immunologic: Reports system reviewed and no additional complaints, except as documented Meds Home Medications and Allergies Home Medications Medication Instructions Recorded Confirmed Type atorvastatin 10 mg tablet (Lipitor) 10 mg PO DAILY Cholesterol 04/13/18 05/23/22 History cholecalciferol (vitamin D3) 25 1,000 unit PO DAILY Supplement 04/13/18 05/23/22 History mcg (1,000 unit) capsule saw palmetto 450 mg capsule 450 mg PO BID Supplement 04/13/18 05/23/22 History tamsulosin 0.4 mg capsule 0.4 mg PO HS bladder 04/13/18 05/23/22 History ibuprofen 600 mg t
[2022-05-24 03:50] VITALS: BMI 22.6
[2022-05-24 03:51] VITALS: BP 138/74; PULSE 72; RESP 18; TEMP 36.9; O2SAT 99
--- NOTE | 2022-05-24 04:59 | PC.NURSE ---
pt a&ox4. room air. dressing to left knee c/d/i. receiving iv abx. no complaints. vss.
[2022-05-24 06:44] LABS: Chloride 112 mmol/L (98-107); Sodium 143 mmol/L (136-145)
[2022-05-24 06:46] LABS: Blood Urea Nitrogen 10 mg/dl (9-20); Creatinine Clearance Estimated 65 mL/min (50-200); Estimated Glomerular Filt Rate 110 ml/min (>60); GFR (African American) 133 ML/MIN (>60)
[2022-05-24 06:47] LABS: Alanine Aminotransferase 29 U/L (12-78); Albumin Level 3.5 g/dl (3.5-5.0); Albumin/Globulin Ratio 1.2 (1.1-1.8); Alkaline Phosphatase 68 U/L (38-126); Aspartate Amino Transferase 32 U/L (17-59); Bilirubin,Total 0.5 mg/dl (0.2-1.3); Calcium 8.4 mg/dl (8.4-10.2); Carbon Dioxide 27 mmol/L (22.0-30.0); Glucose 92 mg/dl (74-100); Magnesium 2.2 mg/dl (1.6-2.3); Total Protein,Serum 6.5 g/dl (6.3-8.2)
[2022-05-24 06:53] LABS: C-Reactive Protein 61.7 mg/L (0-4)
[2022-05-24 07:05] LABS: Basophils # 0.1 K/mm3 (0-0.2); Basophils % 0.7 % (0.1-2.0); Eosinophils # 0.1 K/mm3 (0.0-0.4); Eosinophils % 1.5 % (0.1-12.0); Hematocrit 34.4 % (42.0-52.0); Hemoglobin 11.4 g/dL (14.1-18.0); Lymphocytes # 1.2 K/mm3 (0.7-4.5); Lymphocytes % 15.2 % (10-50); Mean Corpuscular Hemoglobin 32.2 pg (27.0-31.2); Mean Corpuscular Volume 97.6 fl (80-94); Mean Platelet Volume 8.5 fl (7.4-10.4); Monocytes # 0.5 K/mm3 (0.1-1.0); Neutrophils % 76.8 % (37.0-80.0); Platelet Count 270 K/mm3 (142-424); Red Blood Count 3.52 M/mm3 (4.60-6.20); Red Cell Distribution Width 13.7 % (11.5-17.5); White Blood Count 7.8 K/mm3 (4.8-10.8)
--- NOTE | 2022-05-24 07:32 | HMH.PHAINT1 ---
Pharmacy Intervention Comments: Medication reconciliation completed using external fill history
--- NOTE | 2022-05-24 07:48 | EXP.PHA.CONS ---
Pharmacy Consult Date: 05/24/22 Time: 07:48 Referring provider: DR CARTAGENA Reason for Consult:: VANCOMYCIN DOSING CONSULT Allergies Allergy/AdvReac Type Severity Reaction Status Date / Time No Known Allergies Allergy Verified 05/23/22 13:38 Home Medications Medication Instructions Recorded Confirmed Type atorvastatin 10 mg tablet (Lipitor) 10 mg PO DAILY Cholesterol 04/13/18 05/23/22 History cholecalciferol (vitamin D3) 25 1,000 unit PO DAILY Supplement 04/13/18 05/23/22 History mcg (1,000 unit) capsule saw palmetto 450 mg capsule 450 mg PO BID Supplement 04/13/18 05/23/22 History tamsulosin 0.4 mg capsule 0.4 mg PO HS bladder 04/13/18 05/23/22 History ibuprofen 600 mg tablet 600 mg PO Q8H PRN Pain 05/20/22 05/23/22 History cephalexin 500 mg capsule 500 mg PO QID Infection 05/23/22 05/23/22 History New Prescriptions to Start Prescriptions: Height: 1.8 m Weight: 73.284 kg Laboratory Results:: Laboratory Results - last 24 hr 05/23/22 15:30: WBC 11.3 H, RBC 3.68 L, Hgb 11.8 L, Hct 35.8 L, MCV 97.3 H, MCH 32.2 H, MCHC 33.1, RDW 13.9, Plt Count 321, MPV 9.0, Neut % (Auto) 82.4 H, Lymph % (Auto) 10.7, [place] % (Auto) 5.8, Eos % (Auto) 0.8, Baso % (Auto) 0.3, Neut # (Auto) 9.3 H, Lymph # (Auto) 1.2, [place] # (Auto) 0.7, Eos # (Auto) 0.1, Baso # (Auto) 0.0 05/23/22 15:30: Sodium 142, Potassium 4.3, Chloride 107, Carbon Dioxide 28, Anion Gap 11.3, BUN 14, Creatinine 0.70, Estimated Creat Clear 66, Estimated GFR 110, Est GFR ( Amer) 133, Glucose 95, Calcium 8.6, Total Bilirubin 0.5, AST 45, ALT 32, Alkaline Phosphatase 86, Total Protein 7.6, Albumin 4.0, Globulin 3.6 H, Albumin/Globulin Ratio 1.1 02/20/23 15:30: Lactate 0.9 05/23/22 15:53: SARS-CoV-2 (PCR) Not detected, Influenza A Untype (PCR) Not detected, Influenza Type B (PCR) Not detected 05/24/22 05:44: WBC 7.8 D, RBC 3.52 L, Hgb 11.4 L, Hct 34.4 L, MCV 97.6 H, MCH 32.2 H, MCHC 33.0, RDW 13.7, Plt Count 270, MPV 8.5, Neut % (Auto) 76.8, Lymph % (Auto) 15.2, [place] % (Auto) 6.0, Eos % (Auto) 1.5, Baso % (Auto) 0.7, Neut # (Auto) 6.0, Lymph # (Auto) 1.2, [place] # (Auto) 0.5, Eos # (Auto) 0.1, Baso # (Auto) 0.1 05/24/22 05:44: Sodium 143, Potassium 4.0, Chloride 112 H, Carbon Dioxide 27, Anion Gap 8.0, BUN 10 D, Creatinine 0.70, Estimated Creat Clear 65, Estimated GFR 110, Est GFR ( Amer) 133, Glucose 92, Calcium 8.4, Magnesium 2.2, Total Bilirubin 0.5, AST 32 D, ALT 29, Alkaline Phosphatase 68, C-Reactive Protein 61.7 H, Total Protein 6.5, Albumin 3.5 D, Globulin 3.0, Albumin/Globulin Ratio 1.2 Medical History: Medical History (Updated 05/23/22 @ 20:37 by Brandt Laguerre DNP) Basal cell carcinoma BPH (benign prostatic hyperplasia) Hypertension Postoperative urinary retention Urinary retention Vertigo Assessment and Plan Assessment and plan all Dx Assessment and Plan for all problems:: Pharmacokinetic dosing service Objective: Age: 76 yo Serum creatinine: 1 mg/dL Height: 70.9 Inches Weight (kg): 73.284 Diagnosis: CELLULITIS/LEFT KNEE ABSCESS Assessment: IBW (kg): 75.07 Dosing wt(kg): 73.284 Estimated Creatinine clearance (ml/min): 65.1 CRCL method: Cockcroft and Gault using ibw(default). Drug selected: Vancomycin Loading dose (mg): 1500 MG Vd (liters): 51.3 (factor used: 0.7 L/kg) Zackary (hr-1): 0.058 Half life (hrs): 11.95 CLvanco=?? 2.975 L/hr Recommended dose: 1250 mg Interval: 18 hrs Infusion time (hrs): 2.0 Predicted peak (mcg/mL): 35.5 Predicted trough (mcg/mL): 14.03 Total body weight is being used for vancomycin dosing. Recommendations: Give Vancomycin 1250 mg q 18 hrs with an expected Cpeak of 35.5 mcg/ml and an expected Ctrough of 14.03 mcg/ml TO START 05/24/22 AT 2100. PATIENT RECEIVED TWO DOSES SO FAR, A LOADING DOSE OF 1500 MG VANCOMYCIN
[2022-05-24 07:51] VITALS: BP 148/87; PULSE 86; RESP 19; TEMP 36.6; O2SAT 99
[2022-05-24 08:09] LABS: Erythrocyte Sedimentation Rate > 140 mm/hr (0-20)
--- NOTE | 2022-05-24 09:14 | EXP.ORTH.CON ---
History of Present Illness *Admission Date: 05/23/22 *Reason for visit:: Left knee cellulitis *History of present illness: Mr. Silver is a 76-year-old male patient admitted to the acute inpatient service after presenting to the [facility] ER with 1 week of erythema, pain, and swelling to his left lower extremity. This morning the patient is lying comfortably in bed. He reports that approximately 1 week ago, he noticed a infected hair follicle on the anterior aspect of his left knee. He states that he was seen by his primary care physician who gave him an oral prescription for Keflex, but states that the erythema continued to worsen over the weekend and became painful. He presented to the [facility] emergency department where a bedside incision and drainage was performed and he was admitted to the inpatient service for further evaluation. He states that he had subjective fevers over the weekend but denies any chills or rigors. No history of any distal tingling/numbness. He denies any prior history of MRSA or surgeries to the left knee. At baseline he ambulates without the use of any walking aids. His past medical history is significant for hyperlipidemia. He denies any other symptoms or concerns at this time. [facility] Disclaimer: The information contained in this section may have been updated after the patient was seen, as this information can be updated by other users. Medical History Basal cell carcinoma BPH (benign prostatic hyperplasia) Hypertension Postoperative urinary retention Urinary retention Vertigo Surgical History S/P colon resection Family History Mother Cancer Father Coronary artery disease Heart attack Social History Smoking Status: Never smoker second hand exposure: No alcohol intake: current counseling given: Yes substance use type: denies use current occupational status: employed Travel in the last 8 weeks: None household members: spouse housing: house marital status: current occupation: [employer] current occupational exposures/hazards: No caffeine: Yes Review of Systems *Neurologic Neurologic: Reports system reviewed and no additional complaints, except as documented Meds Home Medications and Allergies Home Medications Medication Instructions Recorded Confirmed Type atorvastatin 10 mg tablet (Lipitor) 10 mg PO DAILY Cholesterol 04/13/18 05/23/22 History cholecalciferol (vitamin D3) 25 1,000 unit PO DAILY Supplement 04/13/18 05/23/22 History mcg (1,000 unit) capsule saw palmetto 450 mg capsule 450 mg PO BID Supplement 04/13/18 05/23/22 History tamsulosin 0.4 mg capsule 0.4 mg PO HS bladder 04/13/18 05/23/22 History ibuprofen 600 mg tablet 600 mg PO Q8H PRN Pain 05/20/22 05/23/22 History cephalexin 500 mg capsule 500 mg PO QID Infection 05/23/22 05/23/22 History New Prescriptions to Start Prescriptions: Allergies Allergy/AdvReac Type Severity Reaction Status Date / Time No Known Allergies Allergy Verified 05/23/22 13:38 Ortho Exam (Inpt) Vital signs and Labs for Last 24 Hours: Temp Pulse Resp BP Pulse Ox 97.8 F 86 19 148/87 H 99 05/24/22 07:51 05/24/22 07:51 05/24/22 07:51 05/24/22 07:51 05/24/22 07:51 Laboratory Results - last 24 hr 05/23/22 15:30: WBC 11.3 H, RBC 3.68 L, Hgb 11.8 L, Hct 35.8 L, MCV 97.3 H, MCH 32.2 H, MCHC 33.1, RDW 13.9, Plt Count 321, MPV 9.0, Neut % (Auto) 82.4 H, Lymph % (Auto) 10.7, [place] % (Auto) 5.8, Eos % (Auto) 0.8, Baso % (Auto) 0.3, Neut # (Auto) 9.3 H, Lymph # (Auto) 1.2, [place] # (Auto) 0.7, Eos # (Auto) 0.1, Baso # (Auto) 0.0 05/23/22 15:30: Sodium 142, Potassium 4.3, Chloride 107, Carbon Dioxide 28, Anion Gap 11.3, BUN 14, Creat
--- NOTE | 2022-05-24 11:12 | EXP.ACUTE.PN ---
Subjective *Date: 05/24/22 *Time: 12:41 Interval history: Patient states he feels well this morning. Afebrile overnight. Redness stable. Tolerating IV vancomycin and cefepime. No swelling of the knee joint. Orthopedics to see patient this morning. Tolerating p.o. intake without difficulty. No nausea, chest pain, vomiting, diarrhea, confusion, shortness of breath. Medical Exam Vital signs and Labs for Last 24 Hours: Vital Signs Temp Pulse Pulse Resp BP BP BP 05/24/22 07:51 97.8 F 86 19 148/87 H 05/24/22 03:51 98.4 F 72 18 138/74 05/23/22 20:00 98.1 F 84 18 135/78 05/23/22 18:21 98.0 F 101 H 18 167/88 H 05/23/22 17:50 98.0 F 101 H 18 174/95 H 05/23/22 16:30 88 168/78 H 05/23/22 16:00 89 163/92 H 05/23/22 15:15 95 H 18 164/84 H 05/23/22 14:54 98.6 F 100 H 17 164/84 H Pulse Ox 05/24/22 07:51 99 05/24/22 03:51 99 05/23/22 20:00 98 05/23/22 18:21 100 05/23/22 17:50 05/23/22 16:30 100 05/23/22 16:00 100 05/23/22 15:15 98 05/23/22 14:54 99 Intake and Output 05/23/22 05/24/22 05/24/22 23:59 07:59 15:59 Intake Total 240 / 240 Output Total 100 / 100 0 / 0 Balance -100 / -100 240 / 240 Intake: Intake, Oral Amount 240 / 240 Output: Output, Urine Amount 100 / 100 0 / 0 Other: Number of Voids 0 Number of Unmeasured Voids 1 Weight 73.198 kg 73.284 kg Patient Weight 05/24/22 23:59 Weight 73.284 kg Laboratory Results - last 24 hr 05/23/22 15:30: WBC 11.3 H, RBC 3.68 L, Hgb 11.8 L, Hct 35.8 L, MCV 97.3 H, MCH 32.2 H, MCHC 33.1, RDW 13.9, Plt Count 321, MPV 9.0, Neut % (Auto) 82.4 H, Lymph % (Auto) 10.7, [place] % (Auto) 5.8, Eos % (Auto) 0.8, Baso % (Auto) 0.3, Neut # (Auto) 9.3 H, Lymph # (Auto) 1.2, [place] # (Auto) 0.7, Eos # (Auto) 0.1, Baso # (Auto) 0.0 05/23/22 15:30: Sodium 142, Potassium 4.3, Chloride 107, Carbon Dioxide 28, Anion Gap 11.3, BUN 14, Creatinine 0.70, Estimated Creat Clear 66, Estimated GFR 110, Est GFR ( Amer) 133, Glucose 95, Calcium 8.6, Total Bilirubin 0.5, AST 45, ALT 32, Alkaline Phosphatase 86, Total Protein 7.6, Albumin 4.0, Globulin 3.6 H, Albumin/Globulin Ratio 1.1 05/23/22 15:30: Lactate 0.9 05/23/22 15:53: SARS-CoV-2 (PCR) Not detected, Influenza A Untype (PCR) Not detected, Influenza Type B (PCR) Not detected 05/24/22 05:44: WBC 7.8 D, RBC 3.52 L, Hgb 11.4 L, Hct 34.4 L, MCV 97.6 H, MCH 32.2 H, MCHC 33.0, RDW 13.7, Plt Count 270, MPV 8.5, Neut % (Auto) 76.8, Lymph % (Auto) 15.2, [place] % (Auto) 6.0, Eos % (Auto) 1.5, Baso % (Auto) 0.7, Neut # (Auto) 6.0, Lymph # (Auto) 1.2, [place] # (Auto) 0.5, Eos # (Auto) 0.1, Baso # (Auto) 0.1, ESR > 140 H 05/24/22 05:44: Sodium 143, Potassium 4.0, Chloride 112 H, Carbon Dioxide 27, Anion Gap 8.0, BUN 10 D, Creatinine 0.70, Estimated Creat Clear 65, Estimated GFR 110, Est GFR ( Amer) 133, Glucose 92, Calcium 8.4, Magnesium 2.2, Total Bilirubin 0.5, AST 32 D, ALT 29, Alkaline Phosphatase 68, C-Reactive Protein 61.7 H, Total Protein 6.5, Albumin 3.5 D, Globulin 3.0, Albumin/Globulin Ratio 1.2 I & O for Labs for Last 24 Hours: Intake & Output 05/21/22 05/22/22 05/23/22 05/24/22 23:59 23:59 23:59 23:59 Intake Total 240 / 240 Output Total 100 / 100 0 / 0 Balance -100 / -100 240 / 240 Weight 73.198 kg 73.284 kg Microbiology Reports for the Last 24 Hours: Microbiology 05/23/22 16:30 Leg,Left Gram Stain - Final 05/23/22 16:30 Leg,Left Wound Culture - Preliminary Constitutional: Present no acute distress and average body habitus Head: Present atraumatic and normocephalic ENT: Present normal exam Neck: Present normal inspection Respiratory: Present normal respiratory effort; Absent accessory muscle use, rhonchi, wheezes or crackles Cardiac: Present Reg Rate and Rhythm GI: Present soft and normal bowel sounds; Absent distention or tenderness Extremities: Present normal inspection and full ROM Comment:: E
[2022-05-24 13:37] VITALS: BMI 22.6
--- NOTE | 2022-05-24 15:36 | PC.NURSE ---
PT IS SITTING UP IN THE CHAIR. ALERT AND ORIENTED X4. EATING AND DRINKING WELL. AMBULATING IN THE ROOM. DRESSING TO THE LEFT KNEE WAS CHANGED THIS AFTERNOON. WOUND WAS PACKED WITH 1/2 INCH IODOFORM, REINFORCED WITH 4X4 AND TAPE. LEFT KNEE HAD REDNESS/SWELLING/PURULENT DRAINAGE NOTED. LUNG SOUNDS CLEAR. ABDOMEN SOFT/NON TENDER WITH ACTIVE BOWEL SOUNDS. PT HAD A BOWEL MOVEMENT THIS MORNING. WILL CONTINUE TO MONITOR.
[2022-05-24 16:00] VITALS: BP 154/86; PULSE 86; RESP 19; TEMP 36.6; O2SAT 100
[2022-05-24 19:38] VITALS: BP 154/74; PULSE 80; RESP 18; TEMP 36.5; O2SAT 98
[2022-05-25 03:58] VITALS: BMI 22.9
[2022-05-25 04:06] VITALS: BP 131/72; PULSE 72; RESP 18; TEMP 36.4; O2SAT 98
[2022-05-25 06:23] LABS: Chloride 109 mmol/L (98-107); Sodium 142 mmol/L (136-145)
[2022-05-25 06:24] LABS: Basophils # 0.1 K/mm3 (0-0.2); Basophils % 0.7 % (0.1-2.0); Eosinophils # 0.1 K/mm3 (0.0-0.4); Eosinophils % 1.4 % (0.1-12.0); Hematocrit 36.5 % (42.0-52.0); Hemoglobin 11.6 g/dL (14.1-18.0); Lymphocytes # 1.4 K/mm3 (0.7-4.5); Lymphocytes % 20.5 % (10-50); Mean Corpuscular HGB Conc 31.8 g/dL (31.8-35.4); Mean Corpuscular Volume 100.4 fl (80-94); Mean Platelet Volume 8.5 fl (7.4-10.4); Monocytes # 0.5 K/mm3 (0.1-1.0); Monocytes % 6.9 % (1.7-9.3); Neutrophils # 4.6 K/mm3 (1.8-7.8); Neutrophils % 70.4 % (37.0-80.0); Platelet Count 314 K/mm3 (142-424); Potassium 4.1 mmoL/L (3.5-5.1); Red Blood Count 3.63 M/mm3 (4.60-6.20); Red Cell Distribution Width 13.9 % (11.5-17.5); White Blood Count 6.6 K/mm3 (4.8-10.8)
[2022-05-25 06:26] LABS: Alanine Aminotransferase 28 U/L (12-78); Alkaline Phosphatase 73 U/L (38-126); Anion Gap 9.1 mEq/L (5-15); Aspartate Amino Transferase 31 U/L (17-59); Bilirubin,Total 0.3 mg/dl (0.2-1.3); Blood Urea Nitrogen 15 mg/dl (9-20); Carbon Dioxide 28 mmol/L (22.0-30.0); Creatinine Clearance Estimated 66 mL/min (50-200); Estimated Glomerular Filt Rate 110 ml/min (>60); GFR (African American) 133 ML/MIN (>60)
[2022-05-25 06:27] LABS: Albumin Level 3.5 g/dl (3.5-5.0); Calcium 8.5 mg/dl (8.4-10.2); Globulin 3.4 g/dL (1.3-3.2); Glucose 97 mg/dl (74-100); Magnesium 2.2 mg/dl (1.6-2.3); Total Protein,Serum 6.9 g/dl (6.3-8.2)
--- NOTE | 2022-05-25 06:39 | PC.NURSE ---
NO ACUTE CHANGES SINCE PREVIOUS ASSESSMENT. PT HAS SLEPT WELL. NO C/O OF PAIN THIS SHIFT. AMBULATING INDEPENDENTLY. VSS. DRESSING TO LEFT KNEE IN PLACE. CALL JONES WITHIN REACH.
[2022-05-25 06:49] LABS: Erythrocyte Sedimentation Rate 106 mm/hr (0-20)
[2022-05-25 07:12] VITALS: BP 142/81; PULSE 77; RESP 18; TEMP 36.4; O2SAT 99
--- NOTE | 2022-05-25 09:47 | EXP.DC.SUM ---
General Admission date:: 05/23/22 Discharge date: 05/25/22 HPI HPI HPI: Mr. Silver is a 76-year-old male patient admitted to the acute inpatient service after presenting to the [facility] ER with 1 week of erythema, pain, and swelling to his left lower extremity. This morning the patient is lying comfortably in bed. He reports that approximately 1 week ago, he noticed a infected hair follicle on the anterior aspect of his left knee. He states that he was seen by his primary care physician who gave him an oral prescription for Keflex, but states that the erythema continued to worsen over the weekend and became painful. He presented to the [facility] emergency department where a bedside incision and drainage was performed and he was admitted to the inpatient service for further evaluation. He states that he had subjective fevers over the weekend but denies any chills or rigors. No history of any distal tingling/numbness. He denies any prior history of MRSA or surgeries to the left knee. At baseline he ambulates without the use of any walking aids. His past medical history is significant for hyperlipidemia. He denies any other symptoms or concerns at this time. Hospital Course Hospital Course Hospital Course: 76-year-old male with past medical history of BPH and Hyperlipidemia presents with erythema and swelling to the knee that extends down to the left ankle, present and worsening over a 1-week period despite taking Keflex - Left Knee Cellulitis - Prepatellar bursa infection left knee I/D performed in the ER with cultures sent for evaluation. Admitted for IV antibiotics. Blood cultures negative on day of discharge at over 24 hours. Culture from wound showing gram-positive cocci. Further speciation and sensitivity pending. Patient's exam has improved significantly with decrease in erythema. ESR improving from 140 to 106. Will transition to oral Bactrim DS twice daily for coverage of gram-positive infection. Given improvement, stable to discharge home. Recommend packing once a day with iodoform gauze to provide wicking and aid with healing. Close follow-up with PCP for reevaluation in 2 days. We will follow-up with Ortho next week for further management and evaluation. - BPH: Flomax 0.4 mg po q hs - Hyperlipidemia: Atorvastatin 10 mg po q day Medically stable for discharge home to complete oral course of antibiotics for infection Exam Data for Last 24 hours Vital signs and Labs for Last 24 Hours: Temp Pulse Resp BP Pulse Ox 97.6 F 77 18 142/81 H 99 05/25/22 07:12 05/25/22 07:12 05/25/22 07:12 05/25/22 07:12 05/25/22 07:12 Laboratory Results - last 24 hr 05/25/22 05:56: WBC 6.6, RBC 3.63 L, Hgb 11.6 L, Hct 36.5 L, MCV 100.4 H, MCH 32.0 H, MCHC 31.8, RDW 13.9, Plt Count 314, MPV 8.5, Neut % (Auto) 70.4, Lymph % (Auto) 20.5, [place] % (Auto) 6.9, Eos % (Auto) 1.4, Baso % (Auto) 0.7, Neut # (Auto) 4.6, Lymph # (Auto) 1.4, [place] # (Auto) 0.5, Eos # (Auto) 0.1, Baso # (Auto) 0.1, ESR 106 H 05/25/22 05:56: Sodium 142, Potassium 4.1, Chloride 109 H, Carbon Dioxide 28, Anion Gap 9.1, BUN 15 D, Creatinine 0.70, Estimated Creat Clear 66, Estimated GFR 110, Est GFR ( Amer) 133, Glucose 97, Calcium 8.5, Magnesium 2.2, Total Bilirubin 0.3, AST 31, ALT 28, Alkaline Phosphatase 73, Total Protein 6.9, Albumin 3.5, Globulin 3.4 H, Albumin/Globulin Ratio 1.0 L I & O for Last 24 hours: Intake & Output 05/22/22 05/23/22 05/24/22 05/25/22 23:59 23:59 23:59 23:59 Intake Total 480 / 480 360 / 360 Output Total 100 / 100 0 / 0 0 / 0 Balance -100 / -100 480 / 480 360 / 360 Weight 73.198 kg 73.28 kg 74.446 kg Microbiology Reports for the Last 24 Hours: Microbiology 05/23/22 16:30 Leg,Left Gram Stain - Final 05/23/22 16:30 Leg,Left Wound Culture - Preliminary Gram Positive Cocci Constitutional Constitutional: no acute distress and average body estevez
--- NOTE | 2022-05-25 09:48 | EXP.ORTH.PN ---
Subjective *Date: 05/25/22 *Time: 09:20 Interval history: Mr. Silver is a 76-year-old male patient with anterior left knee prepatellar bursitis/cellulitis. This morning the patient is lying comfortably in bed. He reports significant improvement in his left knee pain and erythema. He reports that he has been ambulating fully weightbearing without difficulty and had his packing changed yesterday. No history of any fevers, chills, rigors, or distal tingling/numbness. He denies other symptoms or concerns at this time Ortho Exam (Inpt) Vital signs and Labs for Last 24 Hours: Temp Pulse Resp BP Pulse Ox 97.6 F 77 18 142/81 H 99 05/25/22 07:12 05/25/22 07:12 05/25/22 07:12 05/25/22 07:12 05/25/22 07:12 Laboratory Results - last 24 hr 05/25/22 05:56: WBC 6.6, RBC 3.63 L, Hgb 11.6 L, Hct 36.5 L, MCV 100.4 H, MCH 32.0 H, MCHC 31.8, RDW 13.9, Plt Count 314, MPV 8.5, Neut % (Auto) 70.4, Lymph % (Auto) 20.5, [place] % (Auto) 6.9, Eos % (Auto) 1.4, Baso % (Auto) 0.7, Neut # (Auto) 4.6, Lymph # (Auto) 1.4, [place] # (Auto) 0.5, Eos # (Auto) 0.1, Baso # (Auto) 0.1, ESR 106 H 05/25/22 05:56: Sodium 142, Potassium 4.1, Chloride 109 H, Carbon Dioxide 28, Anion Gap 9.1, BUN 15 D, Creatinine 0.70, Estimated Creat Clear 66, Estimated GFR 110, Est GFR ( Amer) 133, Glucose 97, Calcium 8.5, Magnesium 2.2, Total Bilirubin 0.3, AST 31, ALT 28, Alkaline Phosphatase 73, Total Protein 6.9, Albumin 3.5, Globulin 3.4 H, Albumin/Globulin Ratio 1.0 L Temp Pulse Resp BP Pulse Ox 97.8 F 86 19 148/87 H 99 05/24/22 07:51 05/24/22 07:51 05/24/22 07:51 05/24/22 07:51 05/24/22 07:51 Laboratory Results - last 24 hr 05/23/22 15:30: WBC 11.3 H, RBC 3.68 L, Hgb 11.8 L, Hct 35.8 L, MCV 97.3 H, MCH 32.2 H, MCHC 33.1, RDW 13.9, Plt Count 321, MPV 9.0, Neut % (Auto) 82.4 H, Lymph % (Auto) 10.7, [place] % (Auto) 5.8, Eos % (Auto) 0.8, Baso % (Auto) 0.3, Neut # (Auto) 9.3 H, Lymph # (Auto) 1.2, [place] # (Auto) 0.7, Eos # (Auto) 0.1, Baso # (Auto) 0.0 05/23/22 15:30: Sodium 142, Potassium 4.3, Chloride 107, Carbon Dioxide 28, Anion Gap 11.3, BUN 14, Creatinine 0.70, Estimated Creat Clear 66, Estimated GFR 110, Est GFR ( Amer) 133, Glucose 95, Calcium 8.6, Total Bilirubin 0.5, AST 45, ALT 32, Alkaline Phosphatase 86, Total Protein 7.6, Albumin 4.0, Globulin 3.6 H, Albumin/Globulin Ratio 1.1 05/23/22 15:30: Lactate 0.9 05/23/22 15:53: SARS-CoV-2 (PCR) Not detected, Influenza A Untype (PCR) Not detected, Influenza Type B (PCR) Not detected 05/24/22 05:44: WBC 7.8 D, RBC 3.52 L, Hgb 11.4 L, Hct 34.4 L, MCV 97.6 H, MCH 32.2 H, MCHC 33.0, RDW 13.7, Plt Count 270, MPV 8.5, Neut % (Auto) 76.8, Lymph % (Auto) 15.2, [place] % (Auto) 6.0, Eos % (Auto) 1.5, Baso % (Auto) 0.7, Neut # (Auto) 6.0, Lymph # (Auto) 1.2, [place] # (Auto) 0.5, Eos # (Auto) 0.1, Baso # (Auto) 0.1, ESR > 140 H 05/24/22 05:44: Sodium 143, Potassium 4.0, Chloride 112 H, Carbon Dioxide 27, Anion Gap 8.0, BUN 10 D, Creatinine 0.70, Estimated Creat Clear 65, Estimated GFR 110, Est GFR ( Amer) 133, Glucose 92, Calcium 8.4, Magnesium 2.2, Total Bilirubin 0.5, AST 32 D, ALT 29, Alkaline Phosphatase 68, C-Reactive Protein 61.7 H, Total Protein 6.5, Albumin 3.5 D, Globulin 3.0, Albumin/Globulin Ratio 1.2 I & O for Labs for Last 24 Hours: Intake & Output 05/22/22 05/23/22 05/24/22 05/25/22 23:59 23:59 23:59 23:59 Intake Total 480 / 480 360 / 360 Output Total 100 / 100 0 / 0 0 / 0 Balance -100 / -100 480 / 480 360 / 360 Weight 161 lb 6 oz 161 lb 8.876 oz 164 lb 2 oz Intake & Output 05/21/22 05/22/22 05/23/22 05/24/22 23:59 23:59 23:59 23:59 Intake Total 240 / 240 Output Total 100 / 100 0 / 0 Balance -100 / -100 240 / 240 Weight 161 lb 6 oz 161 lb 9 oz Microbiology Reports for the Last 24 Hours: Microbiology 05/23/22 16:30 Leg,Left Gram Stain - Final 05/23/22 16:30 Leg,Left Wound Culture - Preliminary Gram Positive Cocci Microbio
--- NOTE | 2022-05-25 10:03 | EXP.ORTH.PN ---
Subjective *Date: 05/25/22 *Time: 10:03 Interval history: Patient doing very well at this. Is tolerating Lovenox very well. This is actually doing improvement actually really well and swelling he has been pretty Ortho Exam (Inpt) Vital signs and Labs for Last 24 Hours: Temp Pulse Resp BP Pulse Ox 97.6 F 77 18 142/81 H 99 05/25/22 07:12 05/25/22 07:12 05/25/22 07:12 05/25/22 07:12 05/25/22 07:12 Laboratory Results - last 24 hr 05/25/22 05:56: WBC 6.6, RBC 3.63 L, Hgb 11.6 L, Hct 36.5 L, MCV 100.4 H, MCH 32.0 H, MCHC 31.8, RDW 13.9, Plt Count 314, MPV 8.5, Neut % (Auto) 70.4, Lymph % (Auto) 20.5, [place] % (Auto) 6.9, Eos % (Auto) 1.4, Baso % (Auto) 0.7, Neut # (Auto) 4.6, Lymph # (Auto) 1.4, [place] # (Auto) 0.5, Eos # (Auto) 0.1, Baso # (Auto) 0.1, ESR 106 H 05/25/22 05:56: Sodium 142, Potassium 4.1, Chloride 109 H, Carbon Dioxide 28, Anion Gap 9.1, BUN 15 D, Creatinine 0.70, Estimated Creat Clear 66, Estimated GFR 110, Est GFR ( Amer) 133, Glucose 97, Calcium 8.5, Magnesium 2.2, Total Bilirubin 0.3, AST 31, ALT 28, Alkaline Phosphatase 73, Total Protein 6.9, Albumin 3.5, Globulin 3.4 H, Albumin/Globulin Ratio 1.0 L I & O for Labs for Last 24 Hours: Intake & Output 05/22/22 05/23/22 05/24/22 05/25/22 23:59 23:59 23:59 23:59 Intake Total 480 / 480 360 / 360 Output Total 100 / 100 0 / 0 0 / 0 Balance -100 / -100 480 / 480 360 / 360 Weight 161 lb 6 oz 161 lb 8.876 oz 164 lb 2 oz Microbiology Reports for the Last 24 Hours: Microbiology 05/23/22 16:30 Leg,Left Gram Stain - Final 05/23/22 16:30 Leg,Left Wound Culture - Preliminary Gram Positive Cocci Comment:: Left knee: improved redness, Serous drainage minimal. No streaking. Compartments soft. Assessment and Plan *Assessment and plan (1) Cellulitis of left knee: Status: Acute Category: Medical Code(s): L03.116 - Cellulitis of left lower limb Plan Patient doing very well. Will convert to Bactrim PO and close followup. Local wound care with light packing.
--- NOTE | 2022-05-25 12:33 | HMH.PHAINT1 ---
Pharmacy Intervention Comments: DISCHARE MEDICATION COUNSELING PROVIDED. DISCUSSED STOPPING KEFLEX AND STARTING THE FOLLOWING: -MULTIVITAMIN (ONCE DAILY, TAKE WITH FOOD, N/V POSSIBLE) -BACTRIM DS (TWICE DAILY, TAKE WITH FOOD, N/V/D POSSIBLE, RASH POSSIBLE, SUN SENSITIVITY POSSIBLE) PATIENT VERBALIZED NO QUESTIONS AT THIS TIME.
--- NOTE | 2022-05-26 11:29 | CARE MANAGER ---
Patient was gone to doctor's visit per family member. She states he received his meds and is doing well. Denies any questions or concerns. ADRIANA Jansen
== END 2022-05-25 12:53 | disposition home or self-care (01) ==
LOC: ER 16:34 → 2ND 16:49
PROVIDERS: Admitting Provider Internal Medicine Adolescent Medicine; Emergency Provider Student in an Organized Health Care Education/Training Program; PCP Family Medicine; Visit Provider Internal Medicine Adolescent Medicine
DX: L03.116 Cellulitis of left lower limb (principal); M70.42 Prepatellar bursitis, left knee; E78.5 Hyperlipidemia, unspecified; N40.0 Benign prostatic hyperplasia without lower urinary tract symptoms; I10 Essential (primary) hypertension; Z79.899 Other long term (current) drug therapy; B95.62 Methicillin resistant Staphylococcus aureus infection as the cause of diseases classified elsewhere; Z20.822 Contact with and (suspected) exposure to COVID-19
CPT/HCPCS: 10060; G0378; 36415; 73700; 80053; 83605; 83735; 85025; 85651; 86140; 87040; 87070; 87077; 87186; 87205; 99285; C9803; J0692; J3370; U0003; U0005

== ENCOUNTER 2022-12-21 06:05 | Day surgery (SDC) | payer MEDICARE, OTHER, SELFPAY ==
[2022-12-19 13:55] VITALS: BMI 22.7
[2022-12-21 06:36] VITALS: BP 176/97; PULSE 80; RESP 18; TEMP 36.6; O2SAT 98
[2022-12-21 07:16] VITALS: O2SAT 98
[2022-12-21 08:42] VITALS: BP 84/53; PULSE 60; RESP 18; TEMP 36.4; O2SAT 97
--- NOTE | 2022-12-21 08:43 | HMH.SCOPE ---
Procedure: Date: 12/21/22 Patient Date of :: 1945 Procedure Performed:: Total colonoscopy to terminal ileum with numerous polypectomy using cold snare, hot snare, and biopsy forceps Indications:: Patient is a 77-year-old male from [place]. I had previously performed inguinal hernia repair on him. I had seen the patient in late 2019 for rectal bleeding and did a colonoscopy on 12/03/2019 at which time he had a least 17 tubular adenomas and the most concerning was a nearly circumferential adenomatous lesion in the distal transverse colon which was unable to be removed in its entirety with hot snare. Pathology returned as tubular adenoma. The options were discussed with the patient and he wished to pursue a follow-up colonoscopy which was done on 01/28/2020. At that time he was found to have 11 tubular adenomas and the lesion at the distal transverse colon near the splenic flexure was once again noted and unable to be removed even with a variety of techniques including submucosal injection. Colon resection was advised. He underwent colon resection on 05/08/2020 as a transverse colon resection. Interestingly pathology revealed tubulovillous adenoma with focal high-grade dysplasia. He did well following that. Recommendations were for 1 year follow-up colonoscopy after resection in May 2020. Performing Provider:: Rajesh Ramos MD Referring Provider:: Oscar Marquez MD Sedation:: MAC sedation Procedure:: Patient history was obtained and appropriate physical examination was performed. Patient's medications and allergies were reviewed. Informed consent was obtained after explaining the benefits, alternatives, and risks of the procedure including, but not limited to, bleeding, perforation, missed lesions, and adverse reaction to anesthesia medications. Patient was transported to endoscopy procedure room. Patient was connected to monitoring devices. Throughout the procedure the patient's blood pressure, pulse, and oxygen saturations were monitored continuously. Patient identification and planned procedure were verified by the staff. Patient was positioned in lateral decubitus position. Digital anorectal exam was performed. Variable stiffness Olympus colonoscope was inserted and advanced under direct visualization to the cecum. Adequacy of the colonic preparation was noted. The colonoscope was advanced a short distance into the terminal ileum. The colonoscope was then slowly withdrawn while carefully examining the color, texture, anatomy, and integrity of the mucosoa circumferentially. Within the rectum retroflexion was performed. Colonoscope was then withdrawn. . Colonic preparation was adequate with some particulate stool within the colon which was able to be cleared and suctioned free. Terminal ileum appeared normal. Just proximal to the ileocecal valve there was a large sessile polyp which was removed in a piecemeal fashion using hot snare with some use of cold snare for residual adenomatous appearing tissue and biopsy for tiny amounts of residual adenomatous appearing tissue. Polypectomy procedure was somewhat prolonged. It appeared as though the polyp was removed in its entirety using this technique which did require some maceration and retrieval using the [place] net. In the ascending colon there were a couple small adenomatous appearing polyps removed with biopsy forceps and with cold snare. Colonoscope was then readvanced and there was noted to be a cecal polyp removed with cold snare. In the distal ascending colon there were 4 polyps, 3 of these were removed with cold snare and a larger sessile appearing polyp removed with hot snare and injection of Cindy ink was performed as there was some adjacent irregular mucosa which did not necessarily appear adenomatous. At the hepatic flexure there was a polyp removed with cold snare. The distal transverse colon there were a couple of polyps removed with cold snare. Anastomosis w
[2022-12-21 08:52] VITALS: BP 99/61; PULSE 61; RESP 18; O2SAT 98
[2022-12-21 09:03] VITALS: BP 101/62; PULSE 54; RESP 18; O2SAT 99
[2022-12-21 09:13] VITALS: BP 112/67; PULSE 57; RESP 18; O2SAT 98
--- NOTE | 2022-12-21 09:21 | SUR.PHASEII ---
ok to continue home meds per Dr. Ramos
--- NOTE | 2022-12-21 09:49 | EXP.ANES.CKL ---
[facility] Disclaimer: The information contained in this section may have been updated after the patient was seen, as this information can be updated by other users. Medical History Basal cell carcinoma BPH (benign prostatic hyperplasia) History of cataract Hyperlipidemia Hypertension Postoperative urinary retention Urinary retention Vertigo Surgical History History of colonoscopy History of hernia surgery Hx of cataract surgery S/P colon resection Family History Mother Cancer Father Coronary artery disease Heart attack Other Diabetes Social History Smoking Status: Never smoker second hand exposure: No alcohol intake: current counseling given: Yes substance use type: denies use current occupational status: employed Travel in the last 8 weeks: None household members: spouse housing: house marital status: current occupation: [employer] current occupational exposures/hazards: No caffeine: Yes [facility] Anesthesia Checklist Patient Identification Patient Identification: Verbal (Name & ) Structural Data Admitted From: Home Planned Operative Procedure/s: colonoscopy Consent for Planned Operative Procedure(s) Verified: Yes Additional verifications Anesthesia Reactions: No Hx Blood Transfusions: No Blood Transfusion Reaction: No Airway Assessment Mallampati Score:: Class II C-Spine Mobility Assessed: Yes TMJ Mobility Assessed: Yes Dentition: Good Dentition Neurological Assessment Level of Consciousness: Awake and Appropriate Anesthesia Plan Anesthesia Risk discussed: Yes Anesthesia Plan: Verified ASA Class: II Anesthesia Type: MAC
== END 2022-12-21 09:21 | disposition home or self-care (01) ==
PROVIDERS: PCP Family Medicine; Visit Provider Surgery
PROC: 0DJD8ZZ Inspection of Lower Intestinal Tract, Via Natural or Artificial Opening Endoscopic (ICD-10-PCS; CPT 45380; principal; 2022-12-21 07:30)
DX: Z12.11 Encounter for screening for malignant neoplasm of colon (principal); Z86.010 Personal history of colon polyps; Z90.49 Acquired absence of other specified parts of digestive tract; K57.30 Diverticulosis of large intestine without perforation or abscess without bleeding; K64.8 Other hemorrhoids; D12.0 Benign neoplasm of cecum; D12.2 Benign neoplasm of ascending colon; D12.3 Benign neoplasm of transverse colon; D12.4 Benign neoplasm of descending colon; D12.5 Benign neoplasm of sigmoid colon
CPT/HCPCS: 45380; 45385; 88305; J2704

== ENCOUNTER 2023-07-10 06:11 | Day surgery (SDC) | payer MEDICARE, OTHER, SELFPAY ==
[2023-07-10] MEDS: LACTATED RINGERS 1000ML 1,000 ML 25 ML IV (06:24)
--- NOTE | 2023-07-10 06:30 | HMH.SCOPE ---
Procedure: Date: 07/10/23 Patient Date of :: 1945 Procedure Performed:: Total colonoscopy to terminal ileum with multiple polypectomy Indications:: Patient is a 77-year-old male from [place] whom I have previously seen in the past for hernia repair. He had a colonoscopy done on 12/03/2019 for rectal bleeding at which time he had 17 tubular adenomas removed and most concerning was a nearly circumferential adenomatous lesion in the distal transverse colon which was unable to be removed in its entirety with hot snare. This returned as tubular adenoma. Follow-up colonoscopy was done on 01/28/2020 at which time he had 11 tubular adenomas and the lesion in the distal transverse colon was once again unable to be removed even with a variety of techniques and he therefore underwent colon resection, transverse colon resection, on 05/08/2020. 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 Recommendations were for a follow-up colonoscopy 1 year after resection in May 2020. He ultimately underwent colonoscopy on 12/21/2022. He had numerous polyps noted, total of 14, most notable was a polyp immediately proximal to the ileocecal valve as well as the descending colon polyp. Previous anastomosis was identified at 60 cm. Final pathology revealed 14 tubular adenomas. Recommendations were for repeat colonoscopy in 6 months to ensure complete removal and rule out early recurrence of the cecal lesion and to reassess the descending colon polypectomy site to hopefully prevent additional colon resection. Performing Provider:: Rajesh Ramos MD Referring Provider:: Oscar Marquez MD Sedation:: MAC sedation Procedure:: Patient history was obtained and appropriate physical examination was performed. Patient's medications and allergies were reviewed. Informed consent was obtained after explaining the benefits, alternatives, and risks of the procedure including, but not limited to, bleeding, perforation, missed lesions, and adverse reaction to anesthesia medications. Patient was transported to endoscopy procedure room. Patient was connected to monitoring devices. Throughout the procedure the patient's blood pressure, pulse, and oxygen saturations were monitored continuously. Patient identification and planned procedure were verified by the staff. Patient was positioned in lateral decubitus position. Digital anorectal exam was performed. Variable stiffness Olympus colonoscope was inserted and advanced under direct visualization to the cecum. Adequacy of the colonic preparation was noted. The colonoscope was advanced a short distance into the terminal ileum. The colonoscope was then slowly withdrawn while carefully examining the color, texture, anatomy, and integrity of the mucosoa circumferentially. Within the rectum retroflexion was performed. Colonoscope was then withdrawn. . Terminal ileum appeared normal. Careful surveillance was carried out of the cecum there is no evidence of any adenomatous polyp. At the hepatic flexure there was noted to be marking with Cindy ink from prior polypectomy. There was a possible diminutive polyp at this location this was removed with cold biopsy. Adjacent to and just distal to this there was a moderate ridge polyp. This was removed with hot snare. It was sent as hepatic flexure polyp #2. Residual tissue was removed in a piecemeal fashion using biopsy forceps to ensure complete removal. Hemoclip was deployed to ensure hemostasis as there was some minor oozing. There was some pandiverticulosis. In the descending colon there was a small adenomatous appearing polyp removed with cold snare. He had some significant sigmoid diverticulosis. Retroflexion revealed some minor internal hemorrhoids. . Findings:: Polyps as noted above Pandiverticulosis Minimal internal hemorrhoids Recommendations:: Repeat colonoscopy pending pathology, likely 1 to 2 years given prior history. Complications:: None immediate Estimated blood obtained (mL): 3 Colonoscopy Component Colonoscopy Component Was a colonoscopy performed during today's procedure?: Yes Recommended follow up colonoscopy of at least 10 years?: No If no, follow up colonoscopy recommended in ___ years?: 2 Reason for not recommending >/= 10 yr follow-up interval?: See above
[2023-07-10 06:32] VITALS: BP 181/90; PULSE 78; RESP 18; TEMP 36.2; O2SAT 98; BMI 21.9
[2023-07-10 07:26] VITALS: O2SAT 100
--- NOTE | 2023-07-10 07:36 | EXP.ANES.CKL ---
[facility] Disclaimer: The information contained in this section may have been updated after the patient was seen, as this information can be updated by other users. Medical History Basal cell carcinoma BPH (benign prostatic hyperplasia) History of cataract Hyperlipidemia Hypertension Postoperative urinary retention Urinary retention Vertigo Surgical History History of colonoscopy History of hernia surgery Hx of cataract surgery S/P colon resection Family History Mother Cancer Father Coronary artery disease Heart attack Other Diabetes Social History (Updated 07/10/23 @ 06:30 by Matias Hernandez RN) Smoking Status: Never smoker second hand exposure: No alcohol intake: never counseling given: Yes substance use type: denies use current occupational status: employed Travel in the last 8 weeks: None household members: spouse housing: house marital status: current occupation: [employer] current occupational exposures/hazards: No caffeine: Yes [facility] Anesthesia Checklist Patient Identification Patient Identification: Arm Band, Family and Verbal (Name & ) Structural Data Admitted From: Home Planned Operative Procedure/s: Colonoscopy Consent for Planned Operative Procedure(s) Verified: Yes Verified Documents: Surgical Consent and History and Physical NPO Status Verified Time NPO: 04:00 Chart Verification Results Verified: CBC and BMP Additional verifications Patient : No Anesthesia Reactions: No Hx Blood Transfusions: No Blood Transfusion Reaction: No Cardiovascular Assessment Heart Sounds: S1 & S2 Pulse Rhythm: Irregular Peripheral Edema: No Airway Assessment Mallampati Score:: Class II C-Spine Mobility Assessed: Yes (FROM) TMJ Mobility Assessed: Yes Dentition: Good Dentition (Nothing loose per pt.) Neurological Assessment Level of Consciousness: Awake, Alert, Appropriate and Follows Commands Hx Seizures: No Numbness or tingling in extremities: No Anesthesia Plan Anesthesia Risk discussed: Yes Anesthesia Plan: Verified ASA Class: III Anesthesia Type: MAC
[2023-07-10 08:03] VITALS: BP 105/61; PULSE 64; RESP 18; TEMP 36.2; O2SAT 97
[2023-07-10 08:12] VITALS: BP 115/78; PULSE 72; RESP 18; O2SAT 98
[2023-07-10 08:23] VITALS: BP 117/72; PULSE 69; RESP 18; O2SAT 100
== END 2023-07-10 08:23 | disposition home or self-care (01) ==
PROVIDERS: PCP Family Medicine; Visit Provider Surgery
PROC: 0DJD8ZZ Inspection of Lower Intestinal Tract, Via Natural or Artificial Opening Endoscopic (ICD-10-PCS; CPT 45380; principal; 2023-07-10 07:30)
DX: Z12.11 Encounter for screening for malignant neoplasm of colon (principal); Z86.010 Personal history of colon polyps; K64.8 Other hemorrhoids; K57.90 Diverticulosis of intestine, part unspecified, without perforation or abscess without bleeding; D12.4 Benign neoplasm of descending colon; D12.3 Benign neoplasm of transverse colon
CPT/HCPCS: 45380; 45385; 88305

== ENCOUNTER 2024-08-07 09:42 | Outpatient (CLI) | payer MEDICARE, OTHER, SELFPAY ==
--- NOTE | 2024-08-07 09:45 | XR_ITS ---
FINAL REPORT CLINICAL HISTORY: lt hip pain COMPARISON: None FINDINGS: AP and frog leg views of the left hip were obtained. There is no acute fracture or dislocation. Mild degenerative changes of the hips are present bilaterally. Soft tissues are unremarkable. IMPRESSION: No acute osseous abnormality of the left hip. Reviewed, Interpreted and Dictated by Wendy Roche MD Transcribed by Guerita Marinelli Authenticated and [facility]
--- OUTSIDE RECORDS SUMMARY | 2024-08-07 09:45 | XMS_ITS | Continuity of Care Document ---
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 It does not include entries that were removed or entered in error. Problem Status Onset Date Problem Type Date of Resolution Comments Source Basal cell carcinoma of skin Active Condition [place] Benign essential hypertension Active Condition [facility] Benign prostatic hyperplasia Active Condition [facility] Elevated blood pressure Active Condition [facility] Epidermal cyst Active Condition [place] [facility] Exposure to potentially hazardous substance Active Condition [place] [facility] Ganglion cyst Active Condition [place] [facility] Gastroesophageal reflux disease Active Condition [facility] H/O: surgery Active Condition Oct 28, 2014 Entered By: KEYONA HER Comment: numerous basal skin cancersJu2014 Entered By: KEYONA HER Comment: He will soon be getting radiation on his left ear [facility] Health Maintenance Active Condition J ul 2014 Entered By: KEYONA HER Comment: Patient refuses colonoscopyJu2014 Entered By: KEYONA HER Comment: h/o + TB skin test : neg cxr [facility] History of male erectile disorder Active Condition [place] [facility] Hyperlipidemia Active Condition [place] [facility] Impacted cerumen in left ear Active Condition [facility] Social and personal history finding Active Condition Oct 28, 2014 Entered By: KEYONA HER Comment: : 5 childrenJul 2014 Entered By: KEYONA HER Comment: Occupation: part-time [employer]: retiredJul 2014 Entered By: KEYONA HER Comment: Smoke: neverJul 2014 Entered By: KEYONA HER Comment: ETOH: occasional beerJul 2014 Entered By: KEYONA HER Comment: Mom age 56: lung/brain cancerJul 2014 Entered By: KEYONA HER Comment: Dad age 87: CHFJul 2014 Entered By: KEYONA HER Comment: Sibs: DMII [facility] 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 [facility] Vertigo Active Condition [facility] Diagnosis: ICD-10-CM I10 Essential (primary) hypertension Active Diagnosis [facility] Diagnosis: ICD-10-CM L57.0 Actinic keratosis Active Diagnosis [facility] Diagnosis: ICD-10-CM D48.5 Neoplasm of uncertain behavior of skin Active Diagnosis [facility] Medications Combined list of outpatient medications from Department of Defense and [facility] facilities.Medications provided include 1) outpatient medications from the last 15 months, and 2) patient-reported medications. Medication Details Route Status Patient Instructions Prescription Expires Prescription Number Last Dispense Date Ordering Provider Order Date Order Qty Source ATORVASTATI N CA 20MG TAB TAKE ONE-HALF TABLET BY MOUTH DAILY ORAL ACTIVE Severo MYA 2016 [place] [facility] CARBAMIDE PEROXIDE 6.5%/GLYCER IN SOLN,OTIC INSTILL 5 TO 10 DROPS IN LEFT EAR TWICE A DAY FOR EAR WAX REMOVAL -ALLOW DROPS TO REMAIN IN EAR FOR AT LEAST 15 MINUTES. FLUSH EAR WITH WARM WATER USING BULB EAR SYRINGE. AURICU LAR (OTIC) 08/02/2023 [id number] KEEGAN JAIME S 2023 30 [place] [facility] CHLORTHALID ONE 25MG TAB TAKE ONE-HALF TABLET BY MOUTH DAILY FOR BLOOD PRESSURE ORAL ACTIVE 06/07/2025 [id number] 5 KEEGAN JAIME UKA S 2024 45 [place] [facility] CYANOCOBALA MIN 1000MCG TAB TAKE ONE TABLET BY MOUTH DAILY ORAL ACTIVE JAIMEKEEGAN BALLESTEROS A S 2023 [place] [facility] FISH OIL 1200MG CAP,ORAL TAKE 1 CAPSULE BY MOUTH DAILY ORAL ACTIVE CALE IQBAL 2015 [place] HYDROXYZINE HCL 25MG TAB TAKE ONE TABLET BY MOUTH DAILY NEEDED ORAL ACTIVE JAIMEKEEGAN BALLESTEROSSotero S 2024 [place] [facility] MULTIVITAMI N/OPTH AREDS SINGLE STRENGTH TAB TAKE ONE TABLET BY MOUTH DAILY ORAL ACTIVE Severo MAY 2016 [place] [facility] SAW PALMETTO CAP/TAB TAKE 2 CAPS/TAB S BY MOUTH DAILY ORAL ACTIVE ADDISONKEEGAN Sotero S 2018 [place] [facility] SILDENAFIL CITRATE 100MG TAB TAKE ONE-HALF TABLET BY MOUTH DIRECTED FOR ERECTILE DYSFUNCT ION - DO NOT TAKE WITH ANY MEDICATI ON CONTAINI NG NITRATES (LIMIT: 6 DOSES/30 DAYS OR 18 DOSES/90 DAYS, NON-REPL ACEABLE MEDICATI ON) ORAL ACTIVE 04/03/2025 [id number] JAIMEKEEGAN S 2023 6 [place] [facility] SILDENAFIL CITRATE 100MG TAB TAKE ONE-HALF TABLET BY MOUTH DIRECTED FOR ERECTILE DYSFUNCT ION - DO NOT TAKE WITH ANY MEDICATI ON CONTAINI NG NITRATES (LIMIT: 4 DOSES/30 DAYS OR 12 DOSES/90 DAYS, NON-REPL ACEABLE MEDICATI ON) ORAL DISCONT INUED 03/15/2024 [id number] 4 ADDISONKEEGAN VO S 2023 6 [place] [facility] TAMSULOSIN HCL 0.4MG CAP TAKE ONE CAPSULE BY MOUTH EVERY EVENING FOR PROSTATE ORAL ACTIVE 04/18/2025 [id number] 5 KEEGAN JAIMEA S 2024 90 [place] [facility] TAMSULOSIN HCL 0.4MG CAP TAKE ONE CAPSULE BY MOUTH EVERY EVENING FOR PROSTATE ORAL DISCONT INUED 07/03/2024 [id number] KEEGAN JAIME GILDA S 2023 90 [place] [facility] TAMSULOSIN HCL 0.4MG CAP TAKE ONE CAPSULE BY MOUTH EVERY EVENING FOR PROSTATE ORAL DISCONT INUED (EDIT) 12/09/2023 [id number] 4 KEEGAN JAIME A S 2022 30 [place] Immunizations Combined list of available immunizations from the Department of Defense and Veterans Affairs facilities. 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 Comments Source TDAP 2024 RAMA CRUZ LEFT DELTO ID [id number] 115 complet ed ADMINISTE RED AT [place], [place] [facility] [place] COVID-19 (MODERNA), MRNA, LNP-S, PF, 50 MCG/0.5 ML (AGES 12+ YEARS) 7 2023 312 complet ed HISTORICA L INFORMATI ON - FROM OTHER REGISTRY, [place] [facility] [place] INFLUENZA, HIGH-DOSE, TRIVALENT, PF 7 2023 135 complet ed HISTORICA L INFORMATI ON - FROM OTHER REGISTRY, [place] [facility] [place] COVID-19 (MODERNA), MRNA, LNP-S, PF, 50 MCG/0.5 ML (AGES 12+ YEARS) 6 2022 312 complet ed HISTORICA L INFORMATI ON - FROM OTHER REGISTRY, [place] [facility] [place] INFLUENZA, HIGH-DOSE, QUADRIVALENT 6 2022 197 complet ed HISTORICA L INFORMATI ON - FROM OTHER REGISTRY, [place] [facility] COVID-19 (MODERNA), MRNA, LNP-S, BIVALENT, PF, 50 MCG/0.5 ML OR 25MCG/0.25 ML DOSE 5 2022 229 complet ed HISTORICA L INFORMATI ON - FROM OTHER REGISTRY, [place] [facility] INFLUENZA, HIGH-DOSE, QUADRIVALENT 5 2021 197 complet ed HISTORICA L INFORMATI ON - FROM OTHER REGISTRY, [place] [facility] COVID-19 (MODERNA), MRNA, LNP-S, PF, 100 MCG/0.5ML DOSE OR 50 MCG/0.25ML DOSE 4 2021 207 complet ed HISTORICA L INFORMATI ON - FROM OTHER REGISTRY, [place] [facility] [place] COVID-19 (MODERNA), MRNA, LNP-S, PF, 100 MCG/0.5ML DOSE OR 50 MCG/0.25ML DOSE 3 2020 207 complet ed HISTORICA L INFORMATI ON - FROM OTHER REGISTRY, [place] [facility] [place] INFLUENZA, UNSPECIFIED FORMULATION 2020 88 complet ed [place] [facility] [place] INFLUENZA, HIGH-DOSE, QUADRIVALENT 4 2020 197 complet ed HISTORICA L INFORMATI ON - FROM OTHER REGISTRY, [place] [facility] [place] COVID-19 (MODERNA), MRNA, LNP-S, PF, 100 MCG/0.5ML DOSE OR 50 MCG/0.25ML DOSE 2 2020 207 complet ed HISTORICA L INFORMATI ON - FROM OTHER REGISTRY, [place] [facility] [place] COVID-19 (MODERNA), MRNA, LNP-S, PF, 100 MCG/0.5ML DOSE OR 50 MCG/0.25ML DOSE 1 2020 207 complet ed HISTORICA L INFORMATI ON - FROM OTHER REGISTRY, [place] [facility] [place] INFLUENZA, HIGH-DOSE, QUADRIVALENT 3 2019 197 complet ed HISTORICA L INFORMATI ON - FROM OTHER REGISTRY, [place] [facility] [place] PNEUMOCOCCAL POLYSACCHARID E PPV23 2019 33 complet ed [place] [facility] [place] ZOSTER RECOMBINANT 2 2018 187 complet ed [place] [facility] [place] INFLUENZA, HIGH DOSE SEASONAL 2 2018 135 complet ed HISTORICA L INFORMATI ON - FROM OTHER REGISTRY, [place] [facility] [place] ZOSTER RECOMBINANT 1 2018 187 complet ed [place] [facility] [place] INFLUENZA, HIGH DOSE SEASONAL 1 2017 135 complet ed HISTORICA L INFORMATI ON - FROM OTHER REGISTRY, [place] [facility] [place] INFLUENZA, SEASONAL, INJECTABLE 2017 141 complet ed [place] [facility] [place] INFLUENZA A & B (HISTORICAL) 2016 88 complet ed [place] [facility] INFLUENZA A & B (HISTORICAL) 2015 88 complet ed [place] [facility] INFLUENZA A & B (HISTORICAL) 2014 88 complet ed [place] [facility] DTP 2014 01 complet ed [place] [facility] TDAP 2014 115 complet ed [place] [facility] INFLUENZA A & B (HISTORICAL) 2013 88 complet ed [place] [facility] Results Combined list of recent chemistry, hematology and other laboratory results from Department of Defense and Veterans Affairs, ranging from 15 months to all on record, depending upon the facility. Order Name Results Value Reference Range Date Interpretation Specimen Comments Source CBC/PLT LEUKOCYTES [#/VOLUME] IN BLOOD BY AUTOMATED COUNT 6.3 10*3/u L 5.0 - 10.0 06/06 Specimen Type: BLOOD No comment entered. Ordering Provider: IVONE JAIME Report Released Date/Time: Jun 06, 2024 02:39 PM Reporting Lab: [address] [address] Performing Lab: [address] [address] [facility] CBC/PLT ERYTHROCYTE S [#/VOLUME] IN BLOOD BY AUTOMATED COUNT 3.72 10*6/u L 4.6 - 6.2 06/06 L Specimen Type: BLOOD No comment entered. Ordering Provider: IVONE JAIME Report Released Date/Time: Jun 06, 2024 02:39 PM Reporting Lab: [address] [address] Performing Lab: [address] [address] [facility] CBC/PLT HEMOGLOBIN [MASS/VOLUM E] IN BLOOD 12.2 g/dL 14.0 - 18.0 06/06 L Specimen Type: BLOOD No comment entered. Ordering Provider: IVONE JAIME Report Released Date/Time: Jun 06, 2024 02:39 PM Reporting Lab: [address] [address] Performing Lab: [address] [address] [facility] CBC/PLT HEMATOCRIT [VOLUME FRACTION] OF BLOOD BY AUTOMATED COUNT 36.3 42.0 - 52.0 06/06 L Specimen Type: BLOOD No comment entered. Ordering Provider: IVONE JAIME Report Released Date/Time: Jun 06, 2024 02:39 PM Reporting Lab: [place] [phone] Performing Lab: [address] [address] [facility] CBC/PLT MCV [ENTITIC VOLUME] BY AUTOMATED COUNT 97.6 fL 80.0 - 94.0 06/06 H Specimen Type: BLOOD No comment entered. Ordering Provider: IVONE JAIME Report Released Date/Time: Jun 06, 2024 02:39 PM Reporting Lab: [place] [phone] Performing Lab: [place] [phone] [facility] CBC/PLT MCH [ENTITIC MASS] BY AUTOMATED COUNT 32.8 pg 27.0 - 31.0 06/06 H Specimen Type: BLOOD No comment entered. Ordering Provider: IVONE JAIME Report Released Date/Time: Jun 06, 2024 02:39 PM Reporting Lab: [address] [address] Performing Lab: [place] [phone] [facility] CBC/PLT MCHC [MASS/VOLUM E] BY AUTOMATED COUNT 33.6 g/dL 32.0 - 36.0 06/06 Specimen Type: BLOOD No comment entered. Ordering Provider: IVONE JAIME Report Released Date/Time: Jun 06, 2024 02:39 PM Reporting Lab: [address] [address] Performing Lab: [address] [address] [facility] CBC/PLT PLATELETS [#/VOLUME] IN BLOOD 189 10*3/u L 150 - 450 06/06 Specimen Type: BLOOD No comment entered. Ordering Provider: IVONE JAIME Report Released Date/Time: Jun 06, 2024 02:39 PM Reporting Lab: [place] [phone] Performing Lab: [address] CBC/PLT PLATELET MEAN VOLUME [ENTITIC VOLUME] IN BLOOD 11.2 fL 9.0 - 13.1 06/06 Specimen Type: BLOOD No comment entered. Ordering Provider: IVONE JAIME Report Released Date/Time: Jun 06, 2024 02:39 PM Reporting Lab: [place] [phone] Performing Lab: [address] CBC/PLT ERYTHROCYTE DISTRIBUTIO N WIDTH [ENTITIC VOLUME] BY AUTOMATED COUNT 13.5 11.0 - 16.0 06/06 Specimen Type: BLOOD No comment entered. Ordering Provider: IVONE JAIME Report Released Date/Time: Jun 06, 2024 02:39 PM Reporting Lab: [place] [phone] Performing Lab: [address] CBC/PLT NUCLEATED ERYTHROCYTE S/100 ERYTHROCYTE S IN BLOOD 0.0 0.0 - 0.0 06/06 Specimen Type: BLOOD No comment entered. Ordering Provider: IVONE JAIME Report Released Date/Time: Jun 06, 2024 02:39 PM Reporting Lab: [place] [phone] Performing Lab: [address] LIPID PROFILE CHOLESTEROL [MASS/VOLUM E] IN SERUM OR PLASMA 105 mg/dL 0 - 199 06/06 Specimen Type: PLASMA Comment: Estimated Glomerular Filtration Rate (eGFR) calculated using the 2020 Chronic Kidney Disease-Epid emiology (CKD-EPI) Collaboratio n creatinine equation; units of measure are mL/min/1.73 m2. Results are only valid for adults (>=18 years) whose serum creatinine is in a steady state. eGFR calculations are not valid for patients with acute kidney injury and for patients on dialysis. Creatinine-b ased estimates of kidney function may also be inaccurate in patients with reduced creatinine generation due to decreased muscle mass (e.g., malnutrition , severe hypoalbumine radha, sarcopenia, chronic neuromuscula r disease, amputations, severe heart failure or liver disease) and in patients with increased creatinine generation due to increased muscle mass (e.g., muscle builders, anabolic steroids) or increased dietary intake. As drug clearance is proportional to total GFR and not GFR indexed to body surface area (BSA), in individuals with a BSA substantiall y different than 1.73 m2, drug dosing should be based on the reported eGFR value de-indexed from BSA by multiplying by the individual's BSA and dividing by 1.73. CKD is diagnosed based on abnormalitie s of kidney structure or function, present for >3 months, with implications for health and disease. CKD is classified and staged based on cause, eGFR and albuminuria (quantified as urine albumin to creatinine ratio). An eGFR >60 mL/min/1.73 m2 in the absence of increased urine albumin excretion or structural abnormalitie s does not represent CKD. ====== eGFR CKD Interpretati on (mL/min/1.73 m2) stage >=90 G1 Normal 60-89 G2 Mild decrease 45-59 G3A Mild to moderate decrease 30-44 G3B Moderate to severe decrease 15-29 G4 Severe decrease <15 G5 Kidney failure Ordering Provider: IVONE JAIME Report Released Date/Time: Jun 06, 2024 02:39 PM Reporting Lab: [facility] Flowers [address] [address] Performing Lab: [facility] Flowers [address] [address] [facility] LIPID PROFILE TRIGLYCERID E [MASS/VOLUM E] IN SERUM OR PLASMA 152 mg/dL 0 - 149 03/06 /2025 H Specimen Type: PLASMA Comment: Estimated Glomerular Filtration Rate (eGFR) calculated using the 2020 Chronic Kidney Disease-Epid emiology (CKD-EPI) Collaboratio n creatinine equation; units of measure are mL/min/1.73 m2. Results are only valid for adults (>=18 years) whose serum creatinine is in a steady state. eGFR calculations are not valid for patients with acute kidney injury and for patients on dialysis. Creatinine-b ased estimates of kidney function may also be inaccurate in patients with reduced creatinine generation due to decreased muscle mass (e.g., malnutrition , severe hypoalbumine radha, sarcopenia, chronic neuromuscula r disease, amputations, severe heart failure or liver disease) and in patients with increased creatinine generation due to increased muscle mass (e.g., muscle builders, anabolic steroids) or increased dietary intake. As drug clearance is proportional to total GFR and not GFR indexed to body surface area (BSA), in individuals with a BSA substantiall y different than 1.73 m2, drug dosing should be based on the reported eGFR value de-indexed from BSA by multiplying by the individual's BSA and dividing by 1.73. CKD is diagnosed based on abnormalitie s of kidney structure or function, present for >3 months, with implications for health and disease. CKD is classified and staged based on cause, eGFR and albuminuria (quantified as urine albumin to creatinine ratio). An eGFR >60 mL/min/1.73 m2 in the absence of increased urine albumin excretion or structural abnormalitie s does not represent CKD. ====== eGFR CKD Interpretati on (mL/min/1.73 m2) stage >=90 G1 Normal 60-89 G2 Mild decrease 45-59 G3A Mild to moderate decrease 30-44 G3B Moderate to severe decrease 15-29 G4 Severe decrease <15 G5 Kidney failure Ordering Provider: IVONE JAIME Report Released Date/Time: Jun 06, 2024 02:39 PM Reporting Lab: [facility] [address] [address] Performing Lab: [facility] Flowers [place] [phone] [facility] LIPID PROFILE CHOLESTEROL IN HDL [MASS/VOLUM E] IN SERUM OR PLASMA 25 mg/dL 40 - 69 06/06 L Specimen Type: PLASMA Comment: Estimated Glomerular Filtration Rate (eGFR) calculated using the 2020 Chronic Kidney Disease-Epid emiology (CKD-EPI) Collaboratio n creatinine equation; units of measure are mL/min/1.73 m2. Results are only valid for adults (>=18 years) whose serum creatinine is in a steady state. eGFR calculations are not valid for patients with acute kidney injury and for patients on dialysis. Creatinine-b ased estimates of kidney function may also be inaccurate in patients with reduced creatinine generation due to decreased muscle mass (e.g., malnutrition , severe hypoalbumine radha, sarcopenia, chronic neuromuscula r disease, amputations, severe heart failure or liver disease) and in patients with increased creatinine generation due to increased muscle mass (e.g., muscle builders, anabolic steroids) or increased dietary intake. As drug clearance is proportional to total GFR and not GFR indexed to body surface area (BSA), in individuals with a BSA substantiall y different than 1.73 m2, drug dosing should be based on the reported eGFR value de-indexed from BSA by multiplying by the individual's BSA and dividing by 1.73. CKD is diagnosed based on abnormalitie s of kidney structure or function, present for >3 months, with implications for health and disease. CKD is classified and staged based on cause, eGFR and albuminuria (quantified as urine albumin to creatinine ratio). An eGFR >60 mL/min/1.73 m2 in the absence of increased urine albumin excretion or structural abnormalitie s does not represent CKD. ====== eGFR CKD Interpretati on (mL/min/1.73 m2) stage >=90 G1 Normal 60-89 G2 Mild decrease 45-59 G3A Mild to moderate decrease 30-44 G3B Moderate to severe decrease 15-29 G4 Severe decrease <15 G5 Kidney failure Ordering Provider: IVONE JAIME Report Released Date/Time: Jun 06, 2024 02:39 PM Reporting Lab: [facility] [address] [facility] [address] Performing Lab: [place] [place] [address] [address] [facility] LIPID PROFILE CHOLESTEROL IN LDL [MASS/VOLUM E] IN SERUM OR PLASMA BY DIRECT ASSAY 71 mg/dL 0 - 100 06/06 Specimen Type: PLASMA Comment: Estimated Glomerular Filtration Rate (eGFR) calculated using the 2020 Chronic Kidney Disease-Epid emiology (CKD-EPI) Collaboratio n creatinine equation; units of measure are mL/min/1.73 m2. Results are only valid for adults (>=18 years) whose serum creatinine is in a steady state. eGFR calculations are not valid for patients with acute kidney injury and for patients on dialysis. Creatinine-b ased estimates of kidney function may also be inaccurate in patients with reduced creatinine generation due to decreased muscle mass (e.g., malnutrition , severe hypoalbumine radha, sarcopenia, chronic neuromuscula r disease, amputations, severe heart failure or liver disease) and in patients with increased creatinine generation due to increased muscle mass (e.g., muscle builders, anabolic steroids) or increased dietary intake. As drug clearance is proportional to total GFR and not GFR indexed to body surface area (BSA), in individuals with a BSA substantiall y different than 1.73 m2, drug dosing should be based on the reported eGFR value de-indexed from BSA by multiplying by the individual's BSA and dividing by 1.73. CKD is diagnosed based on abnormalitie s of kidney structure or function, present for >3 months, with implications for health and disease. CKD is classified and staged based on cause, eGFR and albuminuria (quantified as urine albumin to creatinine ratio). An eGFR >60 mL/min/1.73 m2 in the absence of increased urine albumin excretion or structural abnormalitie s does not represent CKD. ====== eGFR CKD Interpretati on (mL/min/1.73 m2) stage >=90 G1 Normal 60-89 G2 Mild decrease 45-59 G3A Mild to moderate decrease 30-44 G3B Moderate to severe decrease 15-29 G4 Severe decrease <15 G5 Kidney failure Ordering Provider: IVONE JAIME Report Released Date/Time: Jun 06, 2024 02:39 PM Reporting Lab: [facility] [place] [address] [address] Performing Lab: [place] [place] [address] [address] [facility] PANEL 1 CREATININE [MASS/VOLUM E] IN SERUM OR PLASMA 0.81 mg/dL 0.72 - 1.25 06/06 Specimen Type: PLASMA Comment: Estimated Glomerular Filtration Rate (eGFR) calculated using the 2020 Chronic Kidney Disease-Epid emiology (CKD-EPI) Collaboratio n creatinine equation; units of measure are mL/min/1.73 m2. Results are only valid for adults (>=18 years) whose serum creatinine is in a steady state. eGFR calculations are not valid for patients with acute kidney injury and for patients on dialysis. Creatinine-b ased estimates of kidney function may also be inaccurate in patients with reduced creatinine generation due to decreased muscle mass (e.g., malnutrition , severe hypoalbumine radha, sarcopenia, chronic neuromuscula r disease, amputations, severe heart failure or liver disease) and in patients with increased creatinine generation due to increased muscle mass (e.g., muscle builders, anabolic steroids) or increased dietary intake. As drug clearance is proportional to total GFR and not GFR indexed to body surface area (BSA), in individuals with a BSA substantiall y different than 1.73 m2, drug dosing should be based on the reported eGFR value de-indexed from BSA by multiplying by the individual's BSA and dividing by 1.73. CKD is diagnosed based on abnormalitie s of kidney structure or function, present for >3 months, with implications for health and disease. CKD is classified and staged based on cause, eGFR and albuminuria (quantified as urine albumin to creatinine ratio). An eGFR >60 mL/min/1.73 m2 in the absence of increased urine albumin excretion or structural abnormalitie s does not represent CKD. ====== eGFR CKD Interpretati on (mL/min/1.73 m2) stage >=90 G1 Normal 60-89 G2 Mild decrease 45-59 G3A Mild to moderate decrease 30-44 G3B Moderate to severe decrease 15-29 G4 Severe decrease <15 G5 Kidney failure Ordering Provider: IVONE JAIME Report Released Date/Time: Jun 06, 2024 02:39 PM Reporting Lab: [address] [address] Performing Lab: [address] [address] [facility] PANEL 1 UREA NITROGEN [MASS/VOLUM E] IN SERUM OR PLASMA 20 mg/dL 06/06 Specimen Type: PLASMA Comment: Estimated Glomerular Filtration Rate (eGFR) calculated using the 2020 Chronic Kidney Disease-Epid emiology (CKD-EPI) Collaboratio n creatinine equation; units of measure are mL/min/1.73 m2. Results are only valid for adults (>=18 years) whose serum creatinine is in a steady state. eGFR calculations are not valid for patients with acute kidney injury and for patients on dialysis. Creatinine-b ased estimates of kidney function may also be inaccurate in patients with reduced creatinine generation due to decreased muscle mass (e.g., malnutrition , severe hypoalbumine radha, sarcopenia, chronic neuromuscula r disease, amputations, severe heart failure or liver disease) and in patients with increased creatinine generation due to increased muscle mass (e.g., muscle builders, anabolic steroids) or increased dietary intake. As drug clearance is proportional to total GFR and not GFR indexed to body surface area (BSA), in individuals with a BSA substantiall y different than 1.73 m2, drug dosing should be based on the reported eGFR value de-indexed from BSA by multiplying by the individual's BSA and dividing by 1.73. CKD is diagnosed based on abnormalitie s of kidney structure or function, present for >3 months, with implications for health and disease. CKD is classified and staged based on cause, eGFR and albuminuria (quantified as urine albumin to creatinine ratio). An eGFR >60 mL/min/1.73 m2 in the absence of increased urine albumin excretion or structural abnormalitie s does not represent CKD. ====== eGFR CKD Interpretati on (mL/min/1.73 m2) stage >=90 G1 Normal 60-89 G2 Mild decrease 45-59 G3A Mild to moderate decrease 30-44 G3B Moderate to severe decrease 15-29 G4 Severe decrease <15 G5 Kidney failure Ordering Provider: IVONE JAIME Report Released Date/Time: Jun 06, 2024 02:39 PM Reporting Lab: [facility] [address] [address] Performing Lab: [facility] [facility] [address] [address] [facility] PANEL 1 GLUCOSE [MASS/VOLUM E] IN SERUM OR PLASMA 110 mg/dL 74 - 100 06/06 H Specimen Type: PLASMA Comment: Estimated Glomerular Filtration Rate (eGFR) calculated using the 2020 Chronic Kidney Disease-Epid emiology (CKD-EPI) Collaboratio n creatinine equation; units of measure are mL/min/1.73 m2. Results are only valid for adults (>=18 years) whose serum creatinine is in a steady state. eGFR calculations are not valid for patients with acute kidney injury and for patients on dialysis. Creatinine-b ased estimates of kidney function may also be inaccurate in patients with reduced creatinine generation due to decreased muscle mass (e.g., malnutrition , severe hypoalbumine radha, sarcopenia, chronic neuromuscula r disease, amputations, severe heart failure or liver disease) and in patients with increased creatinine generation due to increased muscle mass (e.g., muscle builders, anabolic steroids) or increased dietary intake. As drug clearance is proportional to total GFR and not GFR indexed to body surface area (BSA), in individuals with a BSA substantiall y different than 1.73 m2, drug dosing should be based on the reported eGFR value de-indexed from BSA by multiplying by the individual's BSA and dividing by 1.73. CKD is diagnosed based on abnormalitie s of kidney structure or function, present for >3 months, with implications for health and disease. CKD is classified and staged based on cause, eGFR and albuminuria (quantified as urine albumin to creatinine ratio). An eGFR >60 mL/min/1.73 m2 in the absence of increased urine albumin excretion or structural abnormalitie s does not represent CKD. ====== eGFR CKD Interpretati on (mL/min/1.73 m2) stage >=90 G1 Normal 60-89 G2 Mild decrease 45-59 G3A Mild to moderate decrease 30-44 G3B Moderate to severe decrease 15-29 G4 Severe decrease <15 G5 Kidney failure Ordering Provider: IVONE JAIME Report Released Date/Time: Jun 06, 2024 02:39 PM Reporting Lab: [facility] [address] [address] Performing Lab: [facility] [address] [address] [facility] PANEL 1 SODIUM [MOLES/VOLU ME] IN SERUM OR PLASMA 140 mmol/L 136 - 145 06/06 Specimen Type: PLASMA Comment: Estimated Glomerular Filtration Rate (eGFR) calculated using the 2020 Chronic Kidney Disease-Epid emiology (CKD-EPI) Collaboratio n creatinine equation; units of measure are mL/min/1.73 m2. Results are only valid for adults (>=18 years) whose serum creatinine is in a steady state. eGFR calculations are not valid for patients with acute kidney injury and for patients on dialysis. Creatinine-b ased estimates of kidney function may also be inaccurate in patients with reduced creatinine generation due to decreased muscle mass (e.g., malnutrition , severe hypoalbumine radha, sarcopenia, chronic neuromuscula r disease, amputations, severe heart failure or liver disease) and in patients with increased creatinine generation due to increased muscle mass (e.g., muscle builders, anabolic steroids) or increased dietary intake. As drug clearance is proportional to total GFR and not GFR indexed to body surface area (BSA), in individuals with a BSA substantiall y different than 1.73 m2, drug dosing should be based on the reported eGFR value de-indexed from BSA by multiplying by the individual's BSA and dividing by 1.73. CKD is diagnosed based on abnormalitie s of kidney structure or function, present for >3 months, with implications for health and disease. CKD is classified and staged based on cause, eGFR and albuminuria (quantified as urine albumin to creatinine ratio). An eGFR >60 mL/min/1.73 m2 in the absence of increased urine albumin excretion or structural abnormalitie s does not represent CKD. ====== eGFR CKD Interpretati on (mL/min/1.73 m2) stage >=90 G1 Normal 60-89 G2 Mild decrease 45-59 G3A Mild to moderate decrease 30-44 G3B Moderate to severe decrease 15-29 G4 Severe decrease <15 G5 Kidney failure Ordering Provider: IVONE JAIME Report Released Date/Time: Jun 06, 2024 02:39 PM Reporting Lab: [address] [address] Performing Lab: [address] [address] [facility] PANEL 1 POTASSIUM [MOLES/VOLU ME] IN SERUM OR PLASMA 3.9 mmol/L 3.5 - 5.1 06/06 Specimen Type: PLASMA Comment: Estimated Glomerular Filtration Rate (eGFR) calculated using the 2020 Chronic Kidney Disease-Epid emiology (CKD-EPI) Collaboratio n creatinine equation; units of measure are mL/min/1.73 m2. Results are only valid for adults (>=18 years) whose serum creatinine is in a steady state. eGFR calculations are not valid for patients with acute kidney injury and for patients on dialysis. Creatinine-b ased estimates of kidney function may also be inaccurate in patients with reduced creatinine generation due to decreased muscle mass (e.g., malnutrition , severe hypoalbumine radha, sarcopenia, chronic neuromuscula r disease, amputations, severe heart failure or liver disease) and in patients with increased creatinine generation due to increased muscle mass (e.g., muscle builders, anabolic steroids) or increased dietary intake. As drug clearance is proportional to total GFR and not GFR indexed to body surface area (BSA), in individuals with a BSA substantiall y different than 1.73 m2, drug dosing should be based on the reported eGFR value de-indexed from BSA by multiplying by the individual's BSA and dividing by 1.73. CKD is diagnosed based on abnormalitie s of kidney structure or function, present for >3 months, with implications for health and disease. CKD is classified and staged based on cause, eGFR and albuminuria (quantified as urine albumin to creatinine ratio). An eGFR >60 mL/min/1.73 m2 in the absence of increased urine albumin excretion or structural abnormalitie s does not represent CKD. ====== eGFR CKD Interpretati on (mL/min/1.73 m2) stage >=90 G1 Normal 60-89 G2 Mild decrease 45-59 G3A Mild to moderate decrease 30-44 G3B Moderate to severe decrease 15-29 G4 Severe decrease <15 G5 Kidney failure Ordering Provider: IVONE JAIME Report Released Date/Time: Jun 06, 2024 02:39 PM Reporting Lab: [facility] [address] [address] Performing Lab: [facility] [address] [address] [facility] PANEL 1 CHLORIDE [MOLES/VOLU ME] IN SERUM OR PLASMA 106 mmol/L 98 - 107 06/06 Specimen Type: PLASMA Comment: Estimated Glomerular Filtration Rate (eGFR) calculated using the 2020 Chronic Kidney Disease-Epid emiology (CKD-EPI) Collaboratio n creatinine equation; units of measure are mL/min/1.73 m2. Results are only valid for adults (>=18 years) whose serum creatinine is in a steady state. eGFR calculations are not valid for patients with acute kidney injury and for patients on dialysis. Creatinine-b ased estimates of kidney function may also be inaccurate in patients with reduced creatinine generation due to decreased muscle mass (e.g., malnutrition , severe hypoalbumine radha, sarcopenia, chronic neuromuscula r disease, amputations, severe heart failure or liver disease) and in patients with increased creatinine generation due to increased muscle mass (e.g., muscle builders, anabolic steroids) or increased dietary intake. As drug clearance is proportional to total GFR and not GFR indexed to body surface area (BSA), in individuals with a BSA substantiall y different than 1.73 m2, drug dosing should be based on the reported eGFR value de-indexed from BSA by multiplying by the individual's BSA and dividing by 1.73. CKD is diagnosed based on abnormalitie s of kidney structure or function, present for >3 months, with implications for health and disease. CKD is classified and staged based on cause, eGFR and albuminuria (quantified as urine albumin to creatinine ratio). An eGFR >60 mL/min/1.73 m2 in the absence of increased urine albumin excretion or structural abnormalitie s does not represent CKD. ====== eGFR CKD Interpretati on (mL/min/1.73 m2) stage >=90 G1 Normal 60-89 G2 Mild decrease 45-59 G3A Mild to moderate decrease 30-44 G3B Moderate to severe decrease 15-29 G4 Severe decrease <15 G5 Kidney failure Ordering Provider: IVONE JAIME Report Released Date/Time: Jun 06, 2024 02:39 PM Reporting Lab: [facility] [address] [address] Performing Lab: [facility] [address] [address] [facility] PANEL 1 CARBON DIOXIDE, TOTAL [MOLES/VOLU ME] IN SERUM OR PLASMA 25 mmol/L - 06/06 Specimen Type: PLASMA Comment: Estimated Glomerular Filtration Rate (eGFR) calculated using the 2020 Chronic Kidney Disease-Epid emiology (CKD-EPI) Collaboratio n creatinine equation; units of measure are mL/min/1.73 m2. Results are only valid for adults (>=18 years) whose serum creatinine is in a steady state. eGFR calculations are not valid for patients with acute kidney injury and for patients on dialysis. Creatinine-b ased estimates of kidney function may also be inaccurate in patients with reduced creatinine generation due to decreased muscle mass (e.g., malnutrition , severe hypoalbumine radha, sarcopenia, chronic neuromuscula r disease, amputations, severe heart failure or liver disease) and in patients with increased creatinine generation due to increased muscle mass (e.g., muscle builders, anabolic steroids) or increased dietary intake. As drug clearance is proportional to total GFR and not GFR indexed to body surface area (BSA), in individuals with a BSA substantiall y different than 1.73 m2, drug dosing should be based on the reported eGFR value de-indexed from BSA by multiplying by the individual's BSA and dividing by 1.73. CKD is diagnosed based on abnormalitie s of kidney structure or function, present for >3 months, with implications for health and disease. CKD is classified and staged based on cause, eGFR and albuminuria (quantified as urine albumin to creatinine ratio). An eGFR >60 mL/min/1.73 m2 in the absence of increased urine albumin excretion or structural abnormalitie s does not represent CKD. ====== eGFR CKD Interpretati on (mL/min/1.73 m2) stage >=90 G1 Normal 60-89 G2 Mild decrease 45-59 G3A Mild to moderate decrease 30-44 G3B Moderate to severe decrease 15-29 G4 Severe decrease <15 G5 Kidney failure Ordering Provider: IVONE JAIME Report Released Date/Time: Jun 06, 2024 02:39 PM Reporting Lab: [facility] [address] [address] Performing Lab: [facility] D [address] [address] [facility] PANEL 1 CALCIUM [MASS/VOLUM E] IN SERUM OR PLASMA 9.4 mg/dL 8.4 - 10.2 06/06 Specimen Type: PLASMA Comment: Estimated Glomerular Filtration Rate (eGFR) calculated using the 2020 Chronic Kidney Disease-Epid emiology (CKD-EPI) Collaboratio n creatinine equation; units of measure are mL/min/1.73 m2. Results are only valid for adults (>=18 years) whose serum creatinine is in a steady state. eGFR calculations are not valid for patients with acute kidney injury and for patients on dialysis. Creatinine-b ased estimates of kidney function may also be inaccurate in patients with reduced creatinine generation due to decreased muscle mass (e.g., malnutrition , severe hypoalbumine radha, sarcopenia, chronic neuromuscula r disease, amputations, severe heart failure or liver disease) and in patients with increased creatinine generation due to increased muscle mass (e.g., muscle builders, anabolic steroids) or increased dietary intake. As drug clearance is proportional to total GFR and not GFR indexed to body surface area (BSA), in individuals with a BSA substantiall y different than 1.73 m2, drug dosing should be based on the reported eGFR value de-indexed from BSA by multiplying by the individual's BSA and dividing by 1.73. CKD is diagnosed based on abnormalitie s of kidney structure or function, present for >3 months, with implications for health and disease. CKD is classified and staged based on cause, eGFR and albuminuria (quantified as urine albumin to creatinine ratio). An eGFR >60 mL/min/1.73 m2 in the absence of increased urine albumin excretion or structural abnormalitie s does not represent CKD. ====== eGFR CKD Interpretati on (mL/min/1.73 m2) stage >=90 G1 Normal 60-89 G2 Mild decrease 45-59 G3A Mild to moderate decrease 30-44 G3B Moderate to severe decrease 15-29 G4 Severe decrease <15 G5 Kidney failure Ordering Provider: IVONE JAIME Report Released Date/Time: Jun 06, 2024 02:39 PM Reporting Lab: [facility] [address] [address] Performing Lab: [facility] [address] [address] [facility] PANEL 1 ANION GAP 3 IN SERUM OR PLASMA 9 meq/L 3 - 19 06/06 Specimen Type: PLASMA Comment: Estimated Glomerular Filtration Rate (eGFR) calculated using the 2020 Chronic Kidney Disease-Epid emiology (CKD-EPI) Collaboratio n creatinine equation; units of measure are mL/min/1.73 m2. Results are only valid for adults (>=18 years) whose serum creatinine is in a steady state. eGFR calculations are not valid for patients with acute kidney injury and for patients on dialysis. Creatinine-b ased estimates of kidney function may also be inaccurate in patients with reduced creatinine generation due to decreased muscle mass (e.g., malnutrition , severe hypoalbumine radha, sarcopenia, chronic neuromuscula r disease, amputations, severe heart failure or liver disease) and in patients with increased creatinine generation due to increased muscle mass (e.g., muscle builders, anabolic steroids) or increased dietary intake. As drug clearance is proportional to total GFR and not GFR indexed to body surface area (BSA), in individuals with a BSA substantiall y different than 1.73 m2, drug dosing should be based on the reported eGFR value de-indexed from BSA by multiplying by the individual's BSA and dividing by 1.73. CKD is diagnosed based on abnormalitie s of kidney structure or function, present for >3 months, with implications for health and disease. CKD is classified and staged based on cause, eGFR and albuminuria (quantified as urine albumin to creatinine ratio). An eGFR >60 mL/min/1.73 m2 in the absence of increased urine albumin excretion or structural abnormalitie s does not represent CKD. ====== eGFR CKD Interpretati on (mL/min/1.73 m2) stage >=90 G1 Normal 60-89 G2 Mild decrease 45-59 G3A Mild to moderate decrease 30-44 G3B Moderate to severe decrease 15-29 G4 Severe decrease <15 G5 Kidney failure Ordering Provider: IVONE JAIME Report Released Date/Time: Jun 06, 2024 02:39 PM Reporting Lab: [facility] [address] [address] Performing Lab: [facility] [address] [address] [facility] PANEL 1 GLOMERULAR FILTRATION RATE/1.73 SQ M.PREDICTED [VOLUME RATE/AREA] IN SERUM, PLASMA OR BLOOD BY CREATININE- BASED FORMULA (CKD-EPI 2020) >90 06/06 Specimen Type: PLASMA Comment: Estimated Glomerular Filtration Rate (eGFR) calculated using the 2020 Chronic Kidney Disease-Epid emiology (CKD-EPI) Collaboratio n creatinine equation; units of measure are mL/min/1.73 m2. Results are only valid for adults (>=18 years) whose serum creatinine is in a steady state. eGFR calculations are not valid for patients with acute kidney injury and for patients on dialysis. Creatinine-b ased estimates of kidney function may also be inaccurate in patients with reduced creatinine generation due to decreased muscle mass (e.g., malnutrition , severe hypoalbumine radha, sarcopenia, chronic neuromuscula r disease, amputations, severe heart failure or liver disease) and in patients with increased creatinine generation due to increased muscle mass (e.g., muscle builders, anabolic steroids) or increased dietary intake. As drug clearance is proportional to total GFR and not GFR indexed to body surface area (BSA), in individuals with a BSA substantiall y different than 1.73 m2, drug dosing should be based on the reported eGFR value de-indexed from BSA by multiplying by the individual's BSA and dividing by 1.73. CKD is diagnosed based on abnormalitie s of kidney structure or function, present for >3 months, with implications for health and disease. CKD is classified and staged based on cause, eGFR and albuminuria (quantified as urine albumin to creatinine ratio). An eGFR >60 mL/min/1.73 m2 in the absence of increased urine albumin excretion or structural abnormalitie s does not represent CKD. ====== eGFR CKD Interpretati on (mL/min/1.73 m2) stage >=90 G1 Normal 60-89 G2 Mild decrease 45-59 G3A Mild to moderate decrease 30-44 G3B Moderate to severe decrease 15-29 G4 Severe decrease <15 G5 Kidney failure Ordering Provider: IVONE JAIME Report Released Date/Time: Jun 06, 2024 02:39 PM Reporting Lab: [facility] [address] [address] Performing Lab: [facility] [address] [address] [facility] PANEL 2 PROTEIN [MASS/VOLUM E] IN SERUM OR PLASMA 7.2 g/dL 6.4 - 8.3 06/06 Specimen Type: PLASMA Comment: Estimated Glomerular Filtration Rate (eGFR) calculated using the 2020 Chronic Kidney Disease-Epid emiology (CKD-EPI) Collaboratio n creatinine equation; units of measure are mL/min/1.73 m2. Results are only valid for adults (>=18 years) whose serum creatinine is in a steady state. eGFR calculations are not valid for patients with acute kidney injury and for patients on dialysis. Creatinine-b ased estimates of kidney function may also be inaccurate in patients with reduced creatinine generation due to decreased muscle mass (e.g., malnutrition , severe hypoalbumine radha, sarcopenia, chronic neuromuscula r disease, amputations, severe heart failure or liver disease) and in patients with increased creatinine generation due to increased muscle mass (e.g., muscle builders, anabolic steroids) or increased dietary intake. As drug clearance is proportional to total GFR and not GFR indexed to body surface area (BSA), in individuals with a BSA substantiall y different than 1.73 m2, drug dosing should be based on the reported eGFR value de-indexed from BSA by multiplying by the individual's BSA and dividing by 1.73. CKD is diagnosed based on abnormalitie s of kidney structure or function, present for >3 months, with implications for health and disease. CKD is classified and staged based on cause, eGFR and albuminuria (quantified as urine albumin to creatinine ratio). An eGFR >60 mL/min/1.73 m2 in the absence of increased urine albumin excretion or structural abnormalitie s does not represent CKD. ====== eGFR CKD Interpretati on (mL/min/1.73 m2) stage >=90 G1 Normal 60-89 G2 Mild decrease 45-59 G3A Mild to moderate decrease 30-44 G3B Moderate to severe decrease 15-29 G4 Severe decrease <15 G5 Kidney failure Ordering Provider: IVONE JAIME Report Released Date/Time: Jun 06, 2024 02:39 PM Reporting Lab: [facility] [address] [address] Performing Lab: [facility] [address] [address] [facility] ALBUMIN [MASS/VOLUM E] IN SERUM OR PLASMA 4.3 g/dL 3.5 - 5.2 06/06 Specimen Type: PLASMA Comment: Estimated Glomerular Filtration Rate (eGFR) calculated using the 2020 Chronic Kidney Disease-Epid emiology (CKD-EPI) Collaboratio n creatinine equation; units of measure are mL/min/1.73 m2. Results are only valid for adults (>=18 years) whose serum creatinine is in a steady state. eGFR calculations are not valid for patients with acute kidney injury and for patients on dialysis. Creatinine-b ased estimates of kidney function may also be inaccurate in patients with reduced creatinine generation due to decreased muscle mass (e.g., malnutrition , severe hypoalbumine radha, sarcopenia, chronic neuromuscula r disease, amputations, severe heart failure or liver disease) and in patients with increased creatinine generation due to increased muscle mass (e.g., muscle builders, anabolic steroids) or increased dietary intake. As drug clearance is proportional to total GFR and not GFR indexed to body surface area (BSA), in individuals with a BSA substantiall y different than 1.73 m2, drug dosing should be based on the reported eGFR value de-indexed from BSA by multiplying by the individual's BSA and dividing by 1.73. CKD is diagnosed based on abnormalitie s of kidney structure or function, present for >3 months, with implications for health and disease. CKD is classified and staged based on cause, eGFR and albuminuria (quantified as urine albumin to creatinine ratio). An eGFR >60 mL/min/1.73 m2 in the absence of increased urine albumin excretion or structural abnormalitie s does not represent CKD. ====== eGFR CKD Interpretati on (mL/min/1.73 m2) stage >=90 G1 Normal 60-89 G2 Mild decrease 45-59 G3A Mild to moderate decrease 30-44 G3B Moderate to severe decrease 15-29 G4 Severe decrease <15 G5 Kidney failure Ordering Provider: IVONE JAIME Report Released Date/Time: Jun 06, 2024 02:39 PM Reporting Lab: [facility] [address] [address] Performing Lab: [address] [address] [facility] PANEL 2 BILIRUBIN.T OTAL [MASS/VOLUM E] IN SERUM OR PLASMA 0.6 mg/dL 0.2 - 1.2 06/06 Specimen Type: PLASMA Comment: Estimated Glomerular Filtration Rate (eGFR) calculated using the 2020 Chronic Kidney Disease-Epid emiology (CKD-EPI) Collaboratio n creatinine equation; units of measure are mL/min/1.73 m2. Results are only valid for adults (>=18 years) whose serum creatinine is in a steady state. eGFR calculations are not valid for patients with acute kidney injury and for patients on dialysis. Creatinine-b ased estimates of kidney function may also be inaccurate in patients with reduced creatinine generation due to decreased muscle mass (e.g., malnutrition , severe hypoalbumine radha, sarcopenia, chronic neuromuscula r disease, amputations, severe heart failure or liver disease) and in patients with increased creatinine generation due to increased muscle mass (e.g., muscle builders, anabolic steroids) or increased dietary intake. As drug clearance is proportional to total GFR and not GFR indexed to body surface area (BSA), in individuals with a BSA substantiall y different than 1.73 m2, drug dosing should be based on the reported eGFR value de-indexed from BSA by multiplying by the individual's BSA and dividing by 1.73. CKD is diagnosed based on abnormalitie s of kidney structure or function, present for >3 months, with implications for health and disease. CKD is classified and staged based on cause, eGFR and albuminuria (quantified as urine albumin to creatinine ratio). An eGFR >60 mL/min/1.73 m2 in the absence of increased urine albumin excretion or structural abnormalitie s does not represent CKD. ====== eGFR CKD Interpretati on (mL/min/1.73 m2) stage >=90 G1 Normal 60-89 G2 Mild decrease 45-59 G3A Mild to moderate decrease 30-44 G3B Moderate to severe decrease 15-29 G4 Severe decrease <15 G5 Kidney failure Ordering Provider: IVONE JAIME Report Released Date/Time: Jun 06, 2024 02:39 PM Reporting Lab: [facility] Lionel [address] [address] Performing Lab: [place] D [address] [address] [facility] PANEL 2 ASPARTATE AMINOTRANSF ERASE [ENZYMATIC ACTIVITY/VO LUME] IN SERUM OR PLASMA 28 U/L 5 - 34 06/06 Specimen Type: PLASMA Comment: Estimated Glomerular Filtration Rate (eGFR) calculated using the 2020 Chronic Kidney Disease-Epid emiology (CKD-EPI) Collaboratio n creatinine equation; units of measure are mL/min/1.73 m2. Results are only valid for adults (>=18 years) whose serum creatinine is in a steady state. eGFR calculations are not valid for patients with acute kidney injury and for patients on dialysis. Creatinine-b ased estimates of kidney function may also be inaccurate in patients with reduced creatinine generation due to decreased muscle mass (e.g., malnutrition , severe hypoalbumine radha, sarcopenia, chronic neuromuscula r disease, amputations, severe heart failure or liver disease) and in patients with increased creatinine generation due to increased muscle mass (e.g., muscle builders, anabolic steroids) or increased dietary intake. As drug clearance is proportional to total GFR and not GFR indexed to body surface area (BSA), in individuals with a BSA substantiall y different than 1.73 m2, drug dosing should be based on the reported eGFR value de-indexed from BSA by multiplying by the individual's BSA and dividing by 1.73. CKD is diagnosed based on abnormalitie s of kidney structure or function, present for >3 months, with implications for health and disease. CKD is classified and staged based on cause, eGFR and albuminuria (quantified as urine albumin to creatinine ratio). An eGFR >60 mL/min/1.73 m2 in the absence of increased urine albumin excretion or structural abnormalitie s does not represent CKD. ====== eGFR CKD Interpretati on (mL/min/1.73 m2) stage >=90 G1 Normal 60-89 G2 Mild decrease 45-59 G3A Mild to moderate decrease 30-44 G3B Moderate to severe decrease 15-29 G4 Severe decrease <15 G5 Kidney failure Ordering Provider: IVONE JAIME Report Released Date/Time: Jun 06, 2024 02:39 PM Reporting Lab: [address] [address] Performing Lab: [address] [address] [facility] PANEL 2 ALANINE AMINOTRANSF ERASE [ENZYMATIC ACTIVITY/VO LUME] IN SERUM OR PLASMA 17 U/L 0 - 55 06/06 Specimen Type: PLASMA Comment: Estimated Glomerular Filtration Rate (eGFR) calculated using the 2020 Chronic Kidney Disease-Epid emiology (CKD-EPI) Collaboratio n creatinine equation; units of measure are mL/min/1.73 m2. Results are only valid for adults (>=18 years) whose serum creatinine is in a steady state. eGFR calculations are not valid for patients with acute kidney injury and for patients on dialysis. Creatinine-b ased estimates of kidney function may also be inaccurate in patients with reduced creatinine generation due to decreased muscle mass (e.g., malnutrition , severe hypoalbumine radha, sarcopenia, chronic neuromuscula r disease, amputations, severe heart failure or liver disease) and in patients with increased creatinine generation due to increased muscle mass (e.g., muscle builders, anabolic steroids) or increased dietary intake. As drug clearance is proportional to total GFR and not GFR indexed to body surface area (BSA), in individuals with a BSA substantiall y different than 1.73 m2, drug dosing should be based on the reported eGFR value de-indexed from BSA by multiplying by the individual's BSA and dividing by 1.73. CKD is diagnosed based on abnormalitie s of kidney structure or function, present for >3 months, with implications for health and disease. CKD is classified and staged based on cause, eGFR and albuminuria (quantified as urine albumin to creatinine ratio). An eGFR >60 mL/min/1.73 m2 in the absence of increased urine albumin excretion or structural abnormalitie s does not represent CKD. ====== eGFR CKD Interpretati on (mL/min/1.73 m2) stage >=90 G1 Normal 60-89 G2 Mild decrease 45-59 G3A Mild to moderate decrease 30-44 G3B Moderate to severe decrease 15-29 G4 Severe decrease <15 G5 Kidney failure Ordering Provider: IVONE JAIME Report Released Date/Time: Jun 06, 2024 02:39 PM Reporting Lab: [facility] [address] [address] Performing Lab: [address] [address] [facility] PANEL 2 ALKALINE PHOSPHATASE [ENZYMATIC ACTIVITY/VO LUME] IN SERUM OR PLASMA 78 U/L 40 - 150 06/06 Specimen Type: PLASMA Comment: Estimated Glomerular Filtration Rate (eGFR) calculated using the 2020 Chronic Kidney Disease-Epid emiology (CKD-EPI) Collaboratio n creatinine equation; units of measure are mL/min/1.73 m2. Results are only valid for adults (>=18 years) whose serum creatinine is in a steady state. eGFR calculations are not valid for patients with acute kidney injury and for patients on dialysis. Creatinine-b ased estimates of kidney function may also be inaccurate in patients with reduced creatinine generation due to decreased muscle mass (e.g., malnutrition , severe hypoalbumine radha, sarcopenia, chronic neuromuscula r disease, amputations, severe heart failure or liver disease) and in patients with increased creatinine generation due to increased muscle mass (e.g., muscle builders, anabolic steroids) or increased dietary intake. As drug clearance is proportional to total GFR and not GFR indexed to body surface area (BSA), in individuals with a BSA substantiall y different than 1.73 m2, drug dosing should be based on the reported eGFR value de-indexed from BSA by multiplying by the individual's BSA and dividing by 1.73. CKD is diagnosed based on abnormalitie s of kidney structure or function, present for >3 months, with implications for health and disease. CKD is classified and staged based on cause, eGFR and albuminuria (quantified as urine albumin to creatinine ratio). An eGFR >60 mL/min/1.73 m2 in the absence of increased urine albumin excretion or structural abnormalitie s does not represent CKD. ====== eGFR CKD Interpretati on (mL/min/1.73 m2) stage >=90 G1 Normal 60-89 G2 Mild decrease 45-59 G3A Mild to moderate decrease 30-44 G3B Moderate to severe decrease 15-29 G4 Severe decrease <15 G5 Kidney failure Ordering Provider: IVONE JAIME Report Released Date/Time: Jun 06, 2024 02:39 PM Reporting Lab: [facility] [address] [address] Performing Lab: [facility] Flowers [address] [address] [facility] PANEL 2 BILIRUBIN.D IRECT [MASS/VOLUM E] IN SERUM OR PLASMA 0.2 mg/dL 0.0 - 0.5 06/06 Specimen Type: PLASMA Comment: Estimated Glomerular Filtration Rate (eGFR) calculated using the 2020 Chronic Kidney Disease-Epid emiology (CKD-EPI) Collaboratio n creatinine equation; units of measure are mL/min/1.73 m2. Results are only valid for adults (>=18 years) whose serum creatinine is in a steady state. eGFR calculations are not valid for patients with acute kidney injury and for patients on dialysis. Creatinine-b ased estimates of kidney function may also be inaccurate in patients with reduced creatinine generation due to decreased muscle mass (e.g., malnutrition , severe hypoalbumine radha, sarcopenia, chronic neuromuscula r disease, amputations, severe heart failure or liver disease) and in patients with increased creatinine generation due to increased muscle mass (e.g., muscle builders, anabolic steroids) or increased dietary intake. As drug clearance is proportional to total GFR and not GFR indexed to body surface area (BSA), in individuals with a BSA substantiall y different than 1.73 m2, drug dosing should be based on the reported eGFR value de-indexed from BSA by multiplying by the individual's BSA and dividing by 1.73. CKD is diagnosed based on abnormalitie s of kidney structure or function, present for >3 months, with implications for health and disease. CKD is classified and staged based on cause, eGFR and albuminuria (quantified as urine albumin to creatinine ratio). An eGFR >60 mL/min/1.73 m2 in the absence of increased urine albumin excretion or structural abnormalitie s does not represent CKD. ====== eGFR CKD Interpretati on (mL/min/1.73 m2) stage >=90 G1 Normal 60-89 G2 Mild decrease 45-59 G3A Mild to moderate decrease 30-44 G3B Moderate to severe decrease 15-29 G4 Severe decrease <15 G5 Kidney failure Ordering Provider: IVONE JAIME Report Released Date/Time: Jun 06, 2024 02:39 PM Reporting Lab: [place] [phone] Performing Lab: [place] [phone] [place] [address] CBC/PLT LEUKOCYTES [#/VOLUME] IN BLOOD BY AUTOMATED COUNT 7.2 10*3/u L 5.0 - 10.0 07/02 Specimen Type: BLOOD No comment entered. Ordering Provider: IVONE JAIME Report Released Date/Time: Jul 03, 2023 03:27 PM Reporting Lab: [place] [phone] Performing Lab: [place] [phone] [place] [address] CBC/PLT ERYTHROCYTE S [#/VOLUME] IN BLOOD BY AUTOMATED COUNT 3.82 10*6/u L 4.6 - 6.2 07/02 L Specimen Type: BLOOD No comment entered. Ordering Provider: IVONE JAIME Report Released Date/Time: Jul 03, 2023 03:27 PM Reporting Lab: [place] [phone] Performing Lab: [place] [phone] [place] [address] CBC/PLT HEMOGLOBIN [MASS/VOLUM E] IN BLOOD 12.3 g/dL 14.0 - 18.0 07/02 L Specimen Type: BLOOD No comment entered. Ordering Provider: IVONE JAIME Report Released Date/Time: Jul 03, 2023 03:27 PM Reporting Lab: [place] [address] Performing Lab: [address] CBC/PLT HEMATOCRIT [VOLUME FRACTION] OF BLOOD BY AUTOMATED COUNT 37.1 42.0 - 52.0 07/02 L Specimen Type: BLOOD No comment entered. Ordering Provider: IVONE JAIME Report Released Date/Time: Jul 03, 2023 03:27 PM Reporting Lab: [place] [address] Performing Lab: [address] CBC/PLT MCV [ENTITIC VOLUME] BY AUTOMATED COUNT 97.1 fL 80.0 - 94.0 07/02 H Specimen Type: BLOOD No comment entered. Ordering Provider: IVONE JAIME Report Released Date/Time: Jul 03, 2023 03:27 PM Reporting Lab: [place] [address] Performing Lab: [address] CBC/PLT MCH [ENTITIC MASS] BY AUTOMATED COUNT 32.2 pg 27.0 - 31.0 07/02 H Specimen Type: BLOOD No comment entered. Ordering Provider: IVONE JAIME Report Released Date/Time: Jul 03, 2023 03:27 PM Reporting Lab: [place] [address] Performing Lab: [address] CBC/PLT MCHC [MASS/VOLUM E] BY AUTOMATED COUNT 33.2 g/dL 32.0 - 36.0 07/02 Specimen Type: BLOOD No comment entered. Ordering Provider: IVONE JAIME Report Released Date/Time: Jul 03, 2023 03:27 PM Reporting Lab: [address] [address] Performing Lab: [address] [address] [place] [address] CBC/PLT PLATELETS [#/VOLUME] IN BLOOD 195 10*3/u L 150 - 450 07/02 Specimen Type: BLOOD No comment entered. Ordering Provider: IVONE JAIME Report Released Date/Time: Jul 03, 2023 03:27 PM Reporting Lab: [address] [address] Performing Lab: [place] [phone] [place] [address] CBC/PLT PLATELET MEAN VOLUME [ENTITIC VOLUME] IN BLOOD 11.4 fL 9.0 - 13.1 07/02 Specimen Type: BLOOD No comment entered. Ordering Provider: IVONE JAIME Report Released Date/Time: Jul 03, 2023 03:27 PM Reporting Lab: [address] [address] Performing Lab: [place] [phone] [place] [address] CBC/PLT ERYTHROCYTE DISTRIBUTIO N WIDTH [ENTITIC VOLUME] BY AUTOMATED COUNT 13.7 11.0 - 16.0 07/02 Specimen Type: BLOOD No comment entered. Ordering Provider: IVONE JAIME Report Released Date/Time: Jul 03, 2023 03:27 PM Reporting Lab: [address] [address] Performing Lab: [address] [address] [facility] CBC/PLT NUCLEATED ERYTHROCYTE S/100 ERYTHROCYTE S IN BLOOD 0.0 0.0 - 0.0 07/02 Specimen Type: BLOOD No comment entered. Ordering Provider: IVONE JAIME Report Released Date/Time: Jul 03, 2023 03:27 PM Reporting Lab: [address] [address] Performing Lab: [address] [address] [facility] LIPID PROFILE CHOLESTEROL [MASS/VOLUM E] IN SERUM OR PLASMA 110 mg/dL 0 - 199 07/02 Specimen Type: PLASMA Comment: Estimated Glomerular Filtration Rate (eGFR) calculated using the 2020 Chronic Kidney Disease-Epid emiology (CKD-EPI) Collaboratio n creatinine equation; units of measure are mL/min/1.73 m2. Results are only valid for adults (>=18 years) whose serum creatinine is in a steady state. eGFR calculations are not valid for patients with acute kidney injury and for patients on dialysis. Creatinine-b ased estimates of kidney function may also be inaccurate in patients with reduced creatinine generation due to decreased muscle mass (e.g., malnutrition , severe hypoalbumine radha, sarcopenia, chronic neuromuscula r disease, amputations, severe heart failure or liver disease) and in patients with increased creatinine generation due to increased muscle mass (e.g., muscle builders, anabolic steroids) or increased dietary intake. As drug clearance is proportional to total GFR and not GFR indexed to body surface area (BSA), in individuals with a BSA substantiall y different than 1.73 m2, drug dosing should be based on the reported eGFR value de-indexed from BSA by multiplying by the individual's BSA and dividing by 1.73. CKD is diagnosed based on abnormalitie s of kidney structure or function, present for >3 months, with implications for health and disease. CKD is classified and staged based on cause, eGFR and albuminuria (quantified as urine albumin to creatinine ratio). An eGFR >60 mL/min/1.73 m2 in the absence of increased urine albumin excretion or structural abnormalitie s does not represent CKD. ====== eGFR CKD Interpretati on (mL/min/1.73 m2) stage >=90 G1 Normal 60-89 G2 Mild decrease 45-59 G3A Mild to moderate decrease 30-44 G3B Moderate to severe decrease 15-29 G4 Severe decrease <15 G5 Kidney failure Ordering Provider: IVONE JAIME Report Released Date/Time: Jul 03, 2023 03:27 PM Reporting Lab: [facility] D [address] [address] Performing Lab: [facility] D [address] [address] [facility] LIPID PROFILE TRIGLYCERID E [MASS/VOLUM E] IN SERUM OR PLASMA 62 mg/dL 0 - 149 07/02 Specimen Type: PLASMA Comment: Estimated Glomerular Filtration Rate (eGFR) calculated using the 2020 Chronic Kidney Disease-Epid emiology (CKD-EPI) Collaboratio n creatinine equation; units of measure are mL/min/1.73 m2. Results are only valid for adults (>=18 years) whose serum creatinine is in a steady state. eGFR calculations are not valid for patients with acute kidney injury and for patients on dialysis. Creatinine-b ased estimates of kidney function may also be inaccurate in patients with reduced creatinine generation due to decreased muscle mass (e.g., malnutrition , severe hypoalbumine radha, sarcopenia, chronic neuromuscula r disease, amputations, severe heart failure or liver disease) and in patients with increased creatinine generation due to increased muscle mass (e.g., muscle builders, anabolic steroids) or increased dietary intake. As drug clearance is proportional to total GFR and not GFR indexed to body surface area (BSA), in individuals with a BSA substantiall y different than 1.73 m2, drug dosing should be based on the reported eGFR value de-indexed from BSA by multiplying by the individual's BSA and dividing by 1.73. CKD is diagnosed based on abnormalitie s of kidney structure or function, present for >3 months, with implications for health and disease. CKD is classified and staged based on cause, eGFR and albuminuria (quantified as urine albumin to creatinine ratio). An eGFR >60 mL/min/1.73 m2 in the absence of increased urine albumin excretion or structural abnormalitie s does not represent CKD. ====== eGFR CKD Interpretati on (mL/min/1.73 m2) stage >=90 G1 Normal 60-89 G2 Mild decrease 45-59 G3A Mild to moderate decrease 30-44 G3B Moderate to severe decrease 15-29 G4 Severe decrease <15 G5 Kidney failure Ordering Provider: IVONE JAIME Report Released Date/Time: Jul 03, 2023 03:27 PM Reporting Lab: [facility] [address] [address] Performing Lab: [facility] Flowers [address] [address] [facility] LIPID PROFILE CHOLESTEROL IN HDL [MASS/VOLUM E] IN SERUM OR PLASMA 28 mg/dL 40 - 69 07/02 L Specimen Type: PLASMA Comment: Estimated Glomerular Filtration Rate (eGFR) calculated using the 2020 Chronic Kidney Disease-Epid emiology (CKD-EPI) Collaboratio n creatinine equation; units of measure are mL/min/1.73 m2. Results are only valid for adults (>=18 years) whose serum creatinine is in a steady state. eGFR calculations are not valid for patients with acute kidney injury and for patients on dialysis. Creatinine-b ased estimates of kidney function may also be inaccurate in patients with reduced creatinine generation due to decreased muscle mass (e.g., malnutrition , severe hypoalbumine radha, sarcopenia, chronic neuromuscula r disease, amputations, severe heart failure or liver disease) and in patients with increased creatinine generation due to increased muscle mass (e.g., muscle builders, anabolic steroids) or increased dietary intake. As drug clearance is proportional to total GFR and not GFR indexed to body surface area (BSA), in individuals with a BSA substantiall y different than 1.73 m2, drug dosing should be based on the reported eGFR value de-indexed from BSA by multiplying by the individual's BSA and dividing by 1.73. CKD is diagnosed based on abnormalitie s of kidney structure or function, present for >3 months, with implications for health and disease. CKD is classified and staged based on cause, eGFR and albuminuria (quantified as urine albumin to creatinine ratio). An eGFR >60 mL/min/1.73 m2 in the absence of increased urine albumin excretion or structural abnormalitie s does not represent CKD. ====== eGFR CKD Interpretati on (mL/min/1.73 m2) stage >=90 G1 Normal 60-89 G2 Mild decrease 45-59 G3A Mild to moderate decrease 30-44 G3B Moderate to severe decrease 15-29 G4 Severe decrease <15 G5 Kidney failure Ordering Provider: IVONE JAIME Report Released Date/Time: Jul 03, 2023 03:27 PM Reporting Lab: [facility] [address] [place] [phone] Performing Lab: [address] [address] [facility] LIPID PROFILE CHOLESTEROL IN LDL [MASS/VOLUM E] IN SERUM OR PLASMA BY DIRECT ASSAY 76 mg/dL 0 - 100 07/02 Specimen Type: PLASMA Comment: Estimated Glomerular Filtration Rate (eGFR) calculated using the 2020 Chronic Kidney Disease-Epid emiology (CKD-EPI) Collaboratio n creatinine equation; units of measure are mL/min/1.73 m2. Results are only valid for adults (>=18 years) whose serum creatinine is in a steady state. eGFR calculations are not valid for patients with acute kidney injury and for patients on dialysis. Creatinine-b ased estimates of kidney function may also be inaccurate in patients with reduced creatinine generation due to decreased muscle mass (e.g., malnutrition , severe hypoalbumine radha, sarcopenia, chronic neuromuscula r disease, amputations, severe heart failure or liver disease) and in patients with increased creatinine generation due to increased muscle mass (e.g., muscle builders, anabolic steroids) or increased dietary intake. As drug clearance is proportional to total GFR and not GFR indexed to body surface area (BSA), in individuals with a BSA substantiall y different than 1.73 m2, drug dosing should be based on the reported eGFR value de-indexed from BSA by multiplying by the individual's BSA and dividing by 1.73. CKD is diagnosed based on abnormalitie s of kidney structure or function, present for >3 months, with implications for health and disease. CKD is classified and staged based on cause, eGFR and albuminuria (quantified as urine albumin to creatinine ratio). An eGFR >60 mL/min/1.73 m2 in the absence of increased urine albumin excretion or structural abnormalitie s does not represent CKD. ====== eGFR CKD Interpretati on (mL/min/1.73 m2) stage >=90 G1 Normal 60-89 G2 Mild decrease 45-59 G3A Mild to moderate decrease 30-44 G3B Moderate to severe decrease 15-29 G4 Severe decrease <15 G5 Kidney failure Ordering Provider: IVONE JAIME Report Released Date/Time: Jul 03, 2023 03:27 PM Reporting Lab: [facility] [address] [place] [phone] Performing Lab: [facility] D [facility] [address] [place] [phone] [facility] PANEL 1 CREATININE [MASS/VOLUM E] IN SERUM OR PLASMA 0.79 mg/dL 0.72 - 1.25 07/02 Specimen Type: PLASMA Comment: Estimated Glomerular Filtration Rate (eGFR) calculated using the 2020 Chronic Kidney Disease-Epid emiology (CKD-EPI) Collaboratio n creatinine equation; units of measure are mL/min/1.73 m2. Results are only valid for adults (>=18 years) whose serum creatinine is in a steady state. eGFR calculations are not valid for patients with acute kidney injury and for patients on dialysis. Creatinine-b ased estimates of kidney function may also be inaccurate in patients with reduced creatinine generation due to decreased muscle mass (e.g., malnutrition , severe hypoalbumine radha, sarcopenia, chronic neuromuscula r disease, amputations, severe heart failure or liver disease) and in patients with increased creatinine generation due to increased muscle mass (e.g., muscle builders, anabolic steroids) or increased dietary intake. As drug clearance is proportional to total GFR and not GFR indexed to body surface area (BSA), in individuals with a BSA substantiall y different than 1.73 m2, drug dosing should be based on the reported eGFR value de-indexed from BSA by multiplying by the individual's BSA and dividing by 1.73. CKD is diagnosed based on abnormalitie s of kidney structure or function, present for >3 months, with implications for health and disease. CKD is classified and staged based on cause, eGFR and albuminuria (quantified as urine albumin to creatinine ratio). An eGFR >60 mL/min/1.73 m2 in the absence of increased urine albumin excretion or structural abnormalitie s does not represent CKD. ====== eGFR CKD Interpretati on (mL/min/1.73 m2) stage >=90 G1 Normal 60-89 G2 Mild decrease 45-59 G3A Mild to moderate decrease 30-44 G3B Moderate to severe decrease 15-29 G4 Severe decrease <15 G5 Kidney failure Ordering Provider: IVONE JAIME Report Released Date/Time: Jul 03, 2023 03:27 PM Reporting Lab: [facility] [address] [address] Performing Lab: [facility] [address] [address] [facility] PANEL 1 UREA NITROGEN [MASS/VOLUM E] IN SERUM OR PLASMA 19 mg/dL 07/02 Specimen Type: PLASMA Comment: Estimated Glomerular Filtration Rate (eGFR) calculated using the 2020 Chronic Kidney Disease-Epid emiology (CKD-EPI) Collaboratio n creatinine equation; units of measure are mL/min/1.73 m2. Results are only valid for adults (>=18 years) whose serum creatinine is in a steady state. eGFR calculations are not valid for patients with acute kidney injury and for patients on dialysis. Creatinine-b ased estimates of kidney function may also be inaccurate in patients with reduced creatinine generation due to decreased muscle mass (e.g., malnutrition , severe hypoalbumine radha, sarcopenia, chronic neuromuscula r disease, amputations, severe heart failure or liver disease) and in patients with increased creatinine generation due to increased muscle mass (e.g., muscle builders, anabolic steroids) or increased dietary intake. As drug clearance is proportional to total GFR and not GFR indexed to body surface area (BSA), in individuals with a BSA substantiall y different than 1.73 m2, drug dosing should be based on the reported eGFR value de-indexed from BSA by multiplying by the individual's BSA and dividing by 1.73. CKD is diagnosed based on abnormalitie s of kidney structure or function, present for >3 months, with implications for health and disease. CKD is classified and staged based on cause, eGFR and albuminuria (quantified as urine albumin to creatinine ratio). An eGFR >60 mL/min/1.73 m2 in the absence of increased urine albumin excretion or structural abnormalitie s does not represent CKD. ====== eGFR CKD Interpretati on (mL/min/1.73 m2) stage >=90 G1 Normal 60-89 G2 Mild decrease 45-59 G3A Mild to moderate decrease 30-44 G3B Moderate to severe decrease 15-29 G4 Severe decrease <15 G5 Kidney failure Ordering Provider: IVONE JAIME Report Released Date/Time: Jul 03, 2023 03:27 PM Reporting Lab: [address] [address] Performing Lab: [address] [address] [facility] PANEL 1 GLUCOSE [MASS/VOLUM E] IN SERUM OR PLASMA 87 mg/dL 74 - 100 07/02 Specimen Type: PLASMA Comment: Estimated Glomerular Filtration Rate (eGFR) calculated using the 2020 Chronic Kidney Disease-Epid emiology (CKD-EPI) Collaboratio n creatinine equation; units of measure are mL/min/1.73 m2. Results are only valid for adults (>=18 years) whose serum creatinine is in a steady state. eGFR calculations are not valid for patients with acute kidney injury and for patients on dialysis. Creatinine-b ased estimates of kidney function may also be inaccurate in patients with reduced creatinine generation due to decreased muscle mass (e.g., malnutrition , severe hypoalbumine radha, sarcopenia, chronic neuromuscula r disease, amputations, severe heart failure or liver disease) and in patients with increased creatinine generation due to increased muscle mass (e.g., muscle builders, anabolic steroids) or increased dietary intake. As drug clearance is proportional to total GFR and not GFR indexed to body surface area (BSA), in individuals with a BSA substantiall y different than 1.73 m2, drug dosing should be based on the reported eGFR value de-indexed from BSA by multiplying by the individual's BSA and dividing by 1.73. CKD is diagnosed based on abnormalitie s of kidney structure or function, present for >3 months, with implications for health and disease. CKD is classified and staged based on cause, eGFR and albuminuria (quantified as urine albumin to creatinine ratio). An eGFR >60 mL/min/1.73 m2 in the absence of increased urine albumin excretion or structural abnormalitie s does not represent CKD. ====== eGFR CKD Interpretati on (mL/min/1.73 m2) stage >=90 G1 Normal 60-89 G2 Mild decrease 45-59 G3A Mild to moderate decrease 30-44 G3B Moderate to severe decrease 15-29 G4 Severe decrease <15 G5 Kidney failure Ordering Provider: IVONE JAIME Report Released Date/Time: Jul 03, 2023 03:27 PM Reporting [facility] [address] [address] Performing Lab: [address] [address] [facility] PANEL 1 SODIUM [MOLES/VOLU ME] IN SERUM OR PLASMA 140 mmol/L 136 - 145 07/02 Specimen Type: PLASMA Comment: Estimated Glomerular Filtration Rate (eGFR) calculated using the 2020 Chronic Kidney Disease-Epid emiology (CKD-EPI) Collaboratio n creatinine equation; units of measure are mL/min/1.73 m2. Results are only valid for adults (>=18 years) whose serum creatinine is in a steady state. eGFR calculations are not valid for patients with acute kidney injury and for patients on dialysis. Creatinine-b ased estimates of kidney function may also be inaccurate in patients with reduced creatinine generation due to decreased muscle mass (e.g., malnutrition , severe hypoalbumine radha, sarcopenia, chronic neuromuscula r disease, amputations, severe heart failure or liver disease) and in patients with increased creatinine generation due to increased muscle mass (e.g., muscle builders, anabolic steroids) or increased dietary intake. As drug clearance is proportional to total GFR and not GFR indexed to body surface area (BSA), in individuals with a BSA substantiall y different than 1.73 m2, drug dosing should be based on the reported eGFR value de-indexed from BSA by multiplying by the individual's BSA and dividing by 1.73. CKD is diagnosed based on abnormalitie s of kidney structure or function, present for >3 months, with implications for health and disease. CKD is classified and staged based on cause, eGFR and albuminuria (quantified as urine albumin to creatinine ratio). An eGFR >60 mL/min/1.73 m2 in the absence of increased urine albumin excretion or structural abnormalitie s does not represent CKD. ====== eGFR CKD Interpretati on (mL/min/1.73 m2) stage >=90 G1 Normal 60-89 G2 Mild decrease 45-59 G3A Mild to moderate decrease 30-44 G3B Moderate to severe decrease 15-29 G4 Severe decrease <15 G5 Kidney failure Ordering Provider: IVONE JAIME Report Released Date/Time: Jul 03, 2023 03:27 PM Reporting Lab: [facility] [address] [address] Performing Lab: [facility] [address] [address] [facility] PANEL 1 POTASSIUM [MOLES/VOLU ME] IN SERUM OR PLASMA 4.2 mmol/L 3.5 - 5.1 07/02 Specimen Type: PLASMA Comment: Estimated Glomerular Filtration Rate (eGFR) calculated using the 2020 Chronic Kidney Disease-Epid emiology (CKD-EPI) Collaboratio n creatinine equation; units of measure are mL/min/1.73 m2. Results are only valid for adults (>=18 years) whose serum creatinine is in a steady state. eGFR calculations are not valid for patients with acute kidney injury and for patients on dialysis. Creatinine-b ased estimates of kidney function may also be inaccurate in patients with reduced creatinine generation due to decreased muscle mass (e.g., malnutrition , severe hypoalbumine radha, sarcopenia, chronic neuromuscula r disease, amputations, severe heart failure or liver disease) and in patients with increased creatinine generation due to increased muscle mass (e.g., muscle builders, anabolic steroids) or increased dietary intake. As drug clearance is proportional to total GFR and not GFR indexed to body surface area (BSA), in individuals with a BSA substantiall y different than 1.73 m2, drug dosing should be based on the reported eGFR value de-indexed from BSA by multiplying by the individual's BSA and dividing by 1.73. CKD is diagnosed based on abnormalitie s of kidney structure or function, present for >3 months, with implications for health and disease. CKD is classified and staged based on cause, eGFR and albuminuria (quantified as urine albumin to creatinine ratio). An eGFR >60 mL/min/1.73 m2 in the absence of increased urine albumin excretion or structural abnormalitie s does not represent CKD. ====== eGFR CKD Interpretati on (mL/min/1.73 m2) stage >=90 G1 Normal 60-89 G2 Mild decrease 45-59 G3A Mild to moderate decrease 30-44 G3B Moderate to severe decrease 15-29 G4 Severe decrease <15 G5 Kidney failure Ordering Provider: IVONE JAIME Report Released Date/Time: Jul 03, 2023 03:27 PM Reporting Lab: [facility] [address] [address] Performing Lab: [facility] [address] [address] [facility] PANEL 1 CHLORIDE [MOLES/VOLU ME] IN SERUM OR PLASMA 107 mmol/L 98 - 107 07/02 Specimen Type: PLASMA Comment: Estimated Glomerular Filtration Rate (eGFR) calculated using the 2020 Chronic Kidney Disease-Epid emiology (CKD-EPI) Collaboratio n creatinine equation; units of measure are mL/min/1.73 m2. Results are only valid for adults (>=18 years) whose serum creatinine is in a steady state. eGFR calculations are not valid for patients with acute kidney injury and for patients on dialysis. Creatinine-b ased estimates of kidney function may also be inaccurate in patients with reduced creatinine generation due to decreased muscle mass (e.g., malnutrition , severe hypoalbumine radha, sarcopenia, chronic neuromuscula r disease, amputations, severe heart failure or liver disease) and in patients with increased creatinine generation due to increased muscle mass (e.g., muscle builders, anabolic steroids) or increased dietary intake. As drug clearance is proportional to total GFR and not GFR indexed to body surface area (BSA), in individuals with a BSA substantiall y different than 1.73 m2, drug dosing should be based on the reported eGFR value de-indexed from BSA by multiplying by the individual's BSA and dividing by 1.73. CKD is diagnosed based on abnormalitie s of kidney structure or function, present for >3 months, with implications for health and disease. CKD is classified and staged based on cause, eGFR and albuminuria (quantified as urine albumin to creatinine ratio). An eGFR >60 mL/min/1.73 m2 in the absence of increased urine albumin excretion or structural abnormalitie s does not represent CKD. ====== eGFR CKD Interpretati on (mL/min/1.73 m2) stage >=90 G1 Normal 60-89 G2 Mild decrease 45-59 G3A Mild to moderate decrease 30-44 G3B Moderate to severe decrease 15-29 G4 Severe decrease <15 G5 Kidney failure Ordering Provider: IVONE JAIME Report Released Date/Time: Jul 03, 2023 03:27 PM Reporting Lab: [facility] [address] [address] Performing Lab: [facility] [address] [address] [facility] PANEL 1 CARBON DIOXIDE, TOTAL [MOLES/VOLU ME] IN SERUM OR PLASMA 24 mmol/L - 07/02 Specimen Type: PLASMA Comment: Estimated Glomerular Filtration Rate (eGFR) calculated using the 2020 Chronic Kidney Disease-Epid emiology (CKD-EPI) Collaboratio n creatinine equation; units of measure are mL/min/1.73 m2. Results are only valid for adults (>=18 years) whose serum creatinine is in a steady state. eGFR calculations are not valid for patients with acute kidney injury and for patients on dialysis. Creatinine-b ased estimates of kidney function may also be inaccurate in patients with reduced creatinine generation due to decreased muscle mass (e.g., malnutrition , severe hypoalbumine radha, sarcopenia, chronic neuromuscula r disease, amputations, severe heart failure or liver disease) and in patients with increased creatinine generation due to increased muscle mass (e.g., muscle builders, anabolic steroids) or increased dietary intake. As drug clearance is proportional to total GFR and not GFR indexed to body surface area (BSA), in individuals with a BSA substantiall y different than 1.73 m2, drug dosing should be based on the reported eGFR value de-indexed from BSA by multiplying by the individual's BSA and dividing by 1.73. CKD is diagnosed based on abnormalitie s of kidney structure or function, present for >3 months, with implications for health and disease. CKD is classified and staged based on cause, eGFR and albuminuria (quantified as urine albumin to creatinine ratio). An eGFR >60 mL/min/1.73 m2 in the absence of increased urine albumin excretion or structural abnormalitie s does not represent CKD. ====== eGFR CKD Interpretati on (mL/min/1.73 m2) stage >=90 G1 Normal 60-89 G2 Mild decrease 45-59 G3A Mild to moderate decrease 30-44 G3B Moderate to severe decrease 15-29 G4 Severe decrease <15 G5 Kidney failure Ordering Provider: IVONE JAIME Report Released Date/Time: Jul 03, 2023 03:27 PM Reporting Lab: [facility] [address] [address] Performing Lab: [facility] [address] [address] [facility] PANEL 1 CALCIUM [MASS/VOLUM E] IN SERUM OR PLASMA 9.1 mg/dL 8.4 - 10.2 07/02 Specimen Type: PLASMA Comment: Estimated Glomerular Filtration Rate (eGFR) calculated using the 2020 Chronic Kidney Disease-Epid emiology (CKD-EPI) Collaboratio n creatinine equation; units of measure are mL/min/1.73 m2. Results are only valid for adults (>=18 years) whose serum creatinine is in a steady state. eGFR calculations are not valid for patients with acute kidney injury and for patients on dialysis. Creatinine-b ased estimates of kidney function may also be inaccurate in patients with reduced creatinine generation due to decreased muscle mass (e.g., malnutrition , severe hypoalbumine radha, sarcopenia, chronic neuromuscula r disease, amputations, severe heart failure or liver disease) and in patients with increased creatinine generation due to increased muscle mass (e.g., muscle builders, anabolic steroids) or increased dietary intake. As drug clearance is proportional to total GFR and not GFR indexed to body surface area (BSA), in individuals with a BSA substantiall y different than 1.73 m2, drug dosing should be based on the reported eGFR value de-indexed from BSA by multiplying by the individual's BSA and dividing by 1.73. CKD is diagnosed based on abnormalitie s of kidney structure or function, present for >3 months, with implications for health and disease. CKD is classified and staged based on cause, eGFR and albuminuria (quantified as urine albumin to creatinine ratio). An eGFR >60 mL/min/1.73 m2 in the absence of increased urine albumin excretion or structural abnormalitie s does not represent CKD. ====== eGFR CKD Interpretati on (mL/min/1.73 m2) stage >=90 G1 Normal 60-89 G2 Mild decrease 45-59 G3A Mild to moderate decrease 30-44 G3B Moderate to severe decrease 15-29 G4 Severe decrease <15 G5 Kidney failure Ordering Provider: IVONE JAIME Report Released Date/Time: Jul 03, 2023 03:27 PM Reporting Lab: [facility] Flowers [address] [address] Performing Lab: [facility] Flowers [address] [address] [facility] PANEL 1 ANION GAP 3 IN SERUM OR PLASMA 9 meq/L 3 - 19 07/02 Specimen Type: PLASMA Comment: Estimated Glomerular Filtration Rate (eGFR) calculated using the 2020 Chronic Kidney Disease-Epid emiology (CKD-EPI) Collaboratio n creatinine equation; units of measure are mL/min/1.73 m2. Results are only valid for adults (>=18 years) whose serum creatinine is in a steady state. eGFR calculations are not valid for patients with acute kidney injury and for patients on dialysis. Creatinine-b ased estimates of kidney function may also be inaccurate in patients with reduced creatinine generation due to decreased muscle mass (e.g., malnutrition , severe hypoalbumine radha, sarcopenia, chronic neuromuscula r disease, amputations, severe heart failure or liver disease) and in patients with increased creatinine generation due to increased muscle mass (e.g., muscle builders, anabolic steroids) or increased dietary intake. As drug clearance is proportional to total GFR and not GFR indexed to body surface area (BSA), in individuals with a BSA substantiall y different than 1.73 m2, drug dosing should be based on the reported eGFR value de-indexed from BSA by multiplying by the individual's BSA and dividing by 1.73. CKD is diagnosed based on abnormalitie s of kidney structure or function, present for >3 months, with implications for health and disease. CKD is classified and staged based on cause, eGFR and albuminuria (quantified as urine albumin to creatinine ratio). An eGFR >60 mL/min/1.73 m2 in the absence of increased urine albumin excretion or structural abnormalitie s does not represent CKD. ====== eGFR CKD Interpretati on (mL/min/1.73 m2) stage >=90 G1 Normal 60-89 G2 Mild decrease 45-59 G3A Mild to moderate decrease 30-44 G3B Moderate to severe decrease 15-29 G4 Severe decrease <15 G5 Kidney failure Ordering Provider: IVONE JAIME Report Released Date/Time: Jul 03, 2023 03:27 PM Reporting Lab: [facility] Flowers [address] [address] Performing Lab: SWATH[facility] Flowers [address] [address] [facility] PANEL 1 GLOMERULAR FILTRATION RATE/1.73 SQ M.PREDICTED [VOLUME RATE/AREA] IN SERUM, PLASMA OR BLOOD BY CREATININE- BASED FORMULA (CKD-EPI 2020) >90 07/02 Specimen Type: PLASMA Comment: Estimated Glomerular Filtration Rate (eGFR) calculated using the 2020 Chronic Kidney Disease-Epid emiology (CKD-EPI) Collaboratio n creatinine equation; units of measure are mL/min/1.73 m2. Results are only valid for adults (>=18 years) whose serum creatinine is in a steady state. eGFR calculations are not valid for patients with acute kidney injury and for patients on dialysis. Creatinine-b ased estimates of kidney function may also be inaccurate in patients with reduced creatinine generation due to decreased muscle mass (e.g., malnutrition , severe hypoalbumine radha, sarcopenia, chronic neuromuscula r disease, amputations, severe heart failure or liver disease) and in patients with increased creatinine generation due to increased muscle mass (e.g., muscle builders, anabolic steroids) or increased dietary intake. As drug clearance is proportional to total GFR and not GFR indexed to body surface area (BSA), in individuals with a BSA substantiall y different than 1.73 m2, drug dosing should be based on the reported eGFR value de-indexed from BSA by multiplying by the individual's BSA and dividing by 1.73. CKD is diagnosed based on abnormalitie s of kidney structure or function, present for >3 months, with implications for health and disease. CKD is classified and staged based on cause, eGFR and albuminuria (quantified as urine albumin to creatinine ratio). An eGFR >60 mL/min/1.73 m2 in the absence of increased urine albumin excretion or structural abnormalitie s does not represent CKD. ====== eGFR CKD Interpretati on (mL/min/1.73 m2) stage >=90 G1 Normal 60-89 G2 Mild decrease 45-59 G3A Mild to moderate decrease 30-44 G3B Moderate to severe decrease 15-29 G4 Severe decrease <15 G5 Kidney failure Ordering Provider: IVONE JAIME Report Released Date/Time: Jul 03, 2023 03:27 PM Reporting Lab: [facility] [address] [facility] [address] Performing [facility]: [facility] [address] [facility] [address] [facility] PANEL 2 PROTEIN [MASS/VOLUM E] IN SERUM OR PLASMA 7.2 g/dL 6.4 - 8.3 07/02 Specimen Type: PLASMA Comment: Estimated Glomerular Filtration Rate (eGFR) calculated using the 2020 Chronic Kidney Disease-Epid emiology (CKD-EPI) Collaboratio n creatinine equation; units of measure are mL/min/1.73 m2. Results are only valid for adults (>=18 years) whose serum creatinine is in a steady state. eGFR calculations are not valid for patients with acute kidney injury and for patients on dialysis. Creatinine-b ased estimates of kidney function may also be inaccurate in patients with reduced creatinine generation due to decreased muscle mass (e.g., malnutrition , severe hypoalbumine radha, sarcopenia, chronic neuromuscula r disease, amputations, severe heart failure or liver disease) and in patients with increased creatinine generation due to increased muscle mass (e.g., muscle builders, anabolic steroids) or increased dietary intake. As drug clearance is proportional to total GFR and not GFR indexed to body surface area (BSA), in individuals with a BSA substantiall y different than 1.73 m2, drug dosing should be based on the reported eGFR value de-indexed from BSA by multiplying by the individual's BSA and dividing by 1.73. CKD is diagnosed based on abnormalitie s of kidney structure or function, present for >3 months, with implications for health and disease. CKD is classified and staged based on cause, eGFR and albuminuria (quantified as urine albumin to creatinine ratio). An eGFR >60 mL/min/1.73 m2 in the absence of increased urine albumin excretion or structural abnormalitie s does not represent CKD. ====== eGFR CKD Interpretati on (mL/min/1.73 m2) stage >=90 G1 Normal 60-89 G2 Mild decrease 45-59 G3A Mild to moderate decrease 30-44 G3B Moderate to severe decrease 15-29 G4 Severe decrease <15 G5 Kidney failure Ordering Provider: IVONE JAIME Report Released Date/Time: Jul 03, 2023 03:27 PM Reporting Lab: [facility]el [facility] [address] [address] Performing Lab: [facility] D [address] [address] [facility] PANEL 2 ALBUMIN [MASS/VOLUM E] IN SERUM OR PLASMA 4.4 g/dL 3.5 - 5.2 07/02 Specimen Type: PLASMA Comment: Estimated Glomerular Filtration Rate (eGFR) calculated using the 2020 Chronic Kidney Disease-Epid emiology (CKD-EPI) Collaboratio n creatinine equation; units of measure are mL/min/1.73 m2. Results are only valid for adults (>=18 years) whose serum creatinine is in a steady state. eGFR calculations are not valid for patients with acute kidney injury and for patients on dialysis. Creatinine-b ased estimates of kidney function may also be inaccurate in patients with reduced creatinine generation due to decreased muscle mass (e.g., malnutrition , severe hypoalbumine radha, sarcopenia, chronic neuromuscula r disease, amputations, severe heart failure or liver disease) and in patients with increased creatinine generation due to increased muscle mass (e.g., muscle builders, anabolic steroids) or increased dietary intake. As drug clearance is proportional to total GFR and not GFR indexed to body surface area (BSA), in individuals with a BSA substantiall y different than 1.73 m2, drug dosing should be based on the reported eGFR value de-indexed from BSA by multiplying by the individual's BSA and dividing by 1.73. CKD is diagnosed based on abnormalitie s of kidney structure or function, present for >3 months, with implications for health and disease. CKD is classified and staged based on cause, eGFR and albuminuria (quantified as urine albumin to creatinine ratio). An eGFR >60 mL/min/1.73 m2 in the absence of increased urine albumin excretion or structural abnormalitie s does not represent CKD. ====== eGFR CKD Interpretati on (mL/min/1.73 m2) stage >=90 G1 Normal 60-89 G2 Mild decrease 45-59 G3A Mild to moderate decrease 30-44 G3B Moderate to severe decrease 15-29 G4 Severe decrease <15 G5 Kidney failure Ordering Provider: IVONE JAIME Report Released Date/Time: Jul 03, 2023 03:27 PM Reporting Lab: [address] [address] Performing Lab: [address] [address] [facility] PANEL 2 BILIRUBIN.T OTAL [MASS/VOLUM E] IN SERUM OR PLASMA 0.5 mg/dL 0.2 - 1.2 07/02 Specimen Type: PLASMA Comment: Estimated Glomerular Filtration Rate (eGFR) calculated using the 2020 Chronic Kidney Disease-Epid emiology (CKD-EPI) Collaboratio n creatinine equation; units of measure are mL/min/1.73 m2. Results are only valid for adults (>=18 years) whose serum creatinine is in a steady state. eGFR calculations are not valid for patients with acute kidney injury and for patients on dialysis. Creatinine-b ased estimates of kidney function may also be inaccurate in patients with reduced creatinine generation due to decreased muscle mass (e.g., malnutrition , severe hypoalbumine radha, sarcopenia, chronic neuromuscula r disease, amputations, severe heart failure or liver disease) and in patients with increased creatinine generation due to increased muscle mass (e.g., muscle builders, anabolic steroids) or increased dietary intake. As drug clearance is proportional to total GFR and not GFR indexed to body surface area (BSA), in individuals with a BSA substantiall y different than 1.73 m2, drug dosing should be based on the reported eGFR value de-indexed from BSA by multiplying by the individual's BSA and dividing by 1.73. CKD is diagnosed based on abnormalitie s of kidney structure or function, present for >3 months, with implications for health and disease. CKD is classified and staged based on cause, eGFR and albuminuria (quantified as urine albumin to creatinine ratio). An eGFR >60 mL/min/1.73 m2 in the absence of increased urine albumin excretion or structural abnormalitie s does not represent CKD. ====== eGFR CKD Interpretati on (mL/min/1.73 m2) stage >=90 G1 Normal 60-89 G2 Mild decrease 45-59 G3A Mild to moderate decrease 30-44 G3B Moderate to severe decrease 15-29 G4 Severe decrease <15 G5 Kidney failure Ordering Provider: IVONE JAIME Report Released Date/Time: Jul 03, 2023 03:27 PM Reporting [facility] [address] Performing Lab: [address] [address] [facility] PANEL 2 ASPARTATE AMINOTRANSF ERASE [ENZYMATIC ACTIVITY/VO LUME] IN SERUM OR PLASMA 23 U/L 5 - 34 07/02 Specimen Type: PLASMA Comment: Estimated Glomerular Filtration Rate (eGFR) calculated using the 2020 Chronic Kidney Disease-Epid emiology (CKD-EPI) Collaboratio n creatinine equation; units of measure are mL/min/1.73 m2. Results are only valid for adults (>=18 years) whose serum creatinine is in a steady state. eGFR calculations are not valid for patients with acute kidney injury and for patients on dialysis. Creatinine-b ased estimates of kidney function may also be inaccurate in patients with reduced creatinine generation due to decreased muscle mass (e.g., malnutrition , severe hypoalbumine radha, sarcopenia, chronic neuromuscula r disease, amputations, severe heart failure or liver disease) and in patients with increased creatinine generation due to increased muscle mass (e.g., muscle builders, anabolic steroids) or increased dietary intake. As drug clearance is proportional to total GFR and not GFR indexed to body surface area (BSA), in individuals with a BSA substantiall y different than 1.73 m2, drug dosing should be based on the reported eGFR value de-indexed from BSA by multiplying by the individual's BSA and dividing by 1.73. CKD is diagnosed based on abnormalitie s of kidney structure or function, present for >3 months, with implications for health and disease. CKD is classified and staged based on cause, eGFR and albuminuria (quantified as urine albumin to creatinine ratio). An eGFR >60 mL/min/1.73 m2 in the absence of increased urine albumin excretion or structural abnormalitie s does not represent CKD. ====== eGFR CKD Interpretati on (mL/min/1.73 m2) stage >=90 G1 Normal 60-89 G2 Mild decrease 45-59 G3A Mild to moderate decrease 30-44 G3B Moderate to severe decrease 15-29 G4 Severe decrease <15 G5 Kidney failure Ordering Provider: IVONE JAIME Report Released Date/Time: Jul 03, 2023 03:27 PM Reporting Lab: [address] [address] Performing Lab: [address] [address] [facility] PANEL 2 ALANINE AMINOTRANSF ERASE [ENZYMATIC ACTIVITY/VO LUME] IN SERUM OR PLASMA 19 U/L 0 - 55 07/02 Specimen Type: PLASMA Comment: Estimated Glomerular Filtration Rate (eGFR) calculated using the 2020 Chronic Kidney Disease-Epid emiology (CKD-EPI) Collaboratio n creatinine equation; units of measure are mL/min/1.73 m2. Results are only valid for adults (>=18 years) whose serum creatinine is in a steady state. eGFR calculations are not valid for patients with acute kidney injury and for patients on dialysis. Creatinine-b ased estimates of kidney function may also be inaccurate in patients with reduced creatinine generation due to decreased muscle mass (e.g., malnutrition , severe hypoalbumine radha, sarcopenia, chronic neuromuscula r disease, amputations, severe heart failure or liver disease) and in patients with increased creatinine generation due to increased muscle mass (e.g., muscle builders, anabolic steroids) or increased dietary intake. As drug clearance is proportional to total GFR and not GFR indexed to body surface area (BSA), in individuals with a BSA substantiall y different than 1.73 m2, drug dosing should be based on the reported eGFR value de-indexed from BSA by multiplying by the individual's BSA and dividing by 1.73. CKD is diagnosed based on abnormalitie s of kidney structure or function, present for >3 months, with implications for health and disease. CKD is classified and staged based on cause, eGFR and albuminuria (quantified as urine albumin to creatinine ratio). An eGFR >60 mL/min/1.73 m2 in the absence of increased urine albumin excretion or structural abnormalitie s does not represent CKD. ====== eGFR CKD Interpretati on (mL/min/1.73 m2) stage >=90 G1 Normal 60-89 G2 Mild decrease 45-59 G3A Mild to moderate decrease 30-44 G3B Moderate to severe decrease 15-29 G4 Severe decrease <15 G5 Kidney failure Ordering Provider: IVONE JAIME Report Released Date/Time: Jul 03, 2023 03:27 PM Reporting Lab: [address] [address] Performing Lab: [address] [address] [facility] PANEL 2 ALKALINE PHOSPHATASE [ENZYMATIC ACTIVITY/VO LUME] IN SERUM OR PLASMA 80 U/L 40 - 150 07/02 Specimen Type: PLASMA Comment: Estimated Glomerular Filtration Rate (eGFR) calculated using the 2020 Chronic Kidney Disease-Epid emiology (CKD-EPI) Collaboratio n creatinine equation; units of measure are mL/min/1.73 m2. Results are only valid for adults (>=18 years) whose serum creatinine is in a steady state. eGFR calculations are not valid for patients with acute kidney injury and for patients on dialysis. Creatinine-b ased estimates of kidney function may also be inaccurate in patients with reduced creatinine generation due to decreased muscle mass (e.g., malnutrition , severe hypoalbumine rahda, sarcopenia, chronic neuromuscula r disease, amputations, severe heart failure or liver disease) and in patients with increased creatinine generation due to increased muscle mass (e.g., muscle builders, anabolic steroids) or increased dietary intake. As drug clearance is proportional to total GFR and not GFR indexed to body surface area (BSA), in individuals with a BSA substantiall y different than 1.73 m2, drug dosing should be based on the reported eGFR value de-indexed from BSA by multiplying by the individual's BSA and dividing by 1.73. CKD is diagnosed based on abnormalitie s of kidney structure or function, present for >3 months, with implications for health and disease. CKD is classified and staged based on cause, eGFR and albuminuria (quantified as urine albumin to creatinine ratio). An eGFR >60 mL/min/1.73 m2 in the absence of increased urine albumin excretion or structural abnormalitie s does not represent CKD. ====== eGFR CKD Interpretati on (mL/min/1.73 m2) stage >=90 G1 Normal 60-89 G2 Mild decrease 45-59 G3A Mild to moderate decrease 30-44 G3B Moderate to severe decrease 15-29 G4 Severe decrease <15 G5 Kidney failure Ordering Provider: IVONE JAIME Report Released Date/Time: Jul 03, 2023 03:27 PM Reporting [facility] [address] [address] Performing Lab: [facility] [address] [address] [facility] PANEL 2 BILIRUBIN.D IRECT [MASS/VOLUM E] IN SERUM OR PLASMA 0.3 mg/dL 0.0 - 0.5 07/02 Specimen Type: PLASMA Comment: Estimated Glomerular Filtration Rate (eGFR) calculated using the 2020 Chronic Kidney Disease-Epid emiology (CKD-EPI) Collaboratio n creatinine equation; units of measure are mL/min/1.73 m2. Results are only valid for adults (>=18 years) whose serum creatinine is in a steady state. eGFR calculations are not valid for patients with acute kidney injury and for patients on dialysis. Creatinine-b ased estimates of kidney function may also be inaccurate in patients with reduced creatinine generation due to decreased muscle mass (e.g., malnutrition , severe hypoalbumine radha, sarcopenia, chronic neuromuscula r disease, amputations, severe heart failure or liver disease) and in patients with increased creatinine generation due to increased muscle mass (e.g., muscle builders, anabolic steroids) or increased dietary intake. As drug clearance is proportional to total GFR and not GFR indexed to body surface area (BSA), in individuals with a BSA substantiall y different than 1.73 m2, drug dosing should be based on the reported eGFR value de-indexed from BSA by multiplying by the individual's BSA and dividing by 1.73. CKD is diagnosed based on abnormalitie s of kidney structure or function, present for >3 months, with implications for health and disease. CKD is classified and staged based on cause, eGFR and albuminuria (quantified as urine albumin to creatinine ratio). An eGFR >60 mL/min/1.73 m2 in the absence of increased urine albumin excretion or structural abnormalitie s does not represent CKD. ====== eGFR CKD Interpretati on (mL/min/1.73 m2) stage >=90 G1 Normal 60-89 G2 Mild decrease 45-59 G3A Mild to moderate decrease 30-44 G3B Moderate to severe decrease 15-29 G4 Severe decrease <15 G5 Kidney failure Ordering Provider: IVONE JAIME Report Released Date/Time: Jul 03, 2023 03:27 PM Reporting Lab: [facility] [address] [address] Performing Lab: [facility] [address] [address] [facility] PSA PROSTATE SPECIFIC AG [MASS/VOLUM E] IN SERUM OR PLASMA 2.665 ng/mL 0 - 3.999 07/02 Specimen Type: SERUM No comment entered. Ordering Provider: IVONE JAIME Report Released Date/Time: Jul 03, 2023 03:27 PM Reporting Lab: [facility] [address] [address] Performing Lab: [facility] [address] [address] [facility] Vital Signs Combined list of inpatient and outpatient Vital Signs from Department of Defense and Veterans Affairs, ranging from 12 months to all on record, depending upon the facility. Vital Sign Value Date Comments Source SYSTOLIC BLOOD PRESSURE 161 06/06/2024 14:29:25 [facility] DIASTOLIC BLOOD PRESSURE 77 06/06/2024 14:29:25 [facility] PULSE OXIMETRY 96 06/06/2024 14:29:25 L [facility] [facility] WEIGHT 160 06/06/2024 14:29:25 [facility] BMI 22 kg/m2 06/06/2024 14:29:25 LEXIN MIKE [facility] PAIN 2 06/06/2024 14:29:25 [facility] TEMPERATURE 99 06/06/2024 14:29:25 KEVIN PARKER [facility] PULSE 78 06/06/2024 14:29:25 [facility] Encounters Combined list of: 1) Encounters from Department of [facility] Affairs facilities going backup to the last 18 months, not all [place] inpatient encounters are included; 2) Encounters from the Department of [facility] facilities going backup to 280 months. 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 FRANCOISE GARCIA RT 06/19 [place] [facility] Outpatient Encounter [id number] RICHELLE DESAI 06/22 [place] [facility] OFFICE O/P EST LOW 20 MIN [id number] Diagnos is: ICD-10- CM I10 Essenti al (primar y) hyperte nsion MONICA JAIME KA S 07/02 [place] [facility] Outpatient Encounter [id number] 07/03 [place] [facility] Outpatient Encounter [id number] 07/03 [place] Outpatient Encounter [id number] 08/17 [place] Outpatient Encounter [id number] 08/20 [place] Outpatient Encounter [id number] 08/24 [place] [facility] Outpatient Encounter [id number] 12/10 [place] [facility] Outpatient Encounter [id number] 01/03 [place] OFFICE O/P EST LOW 20 MIN [id number] Diagnos is: ICD-10- CM L57.0 Actinic keratos is FRANCOISE GARCIA RT 02/19 [place] Outpatient Encounter [id number] 05/21 [place] OFFICE O/P EST MOD 30 MIN [id number] Diagnos is: ICD-10- CM I10 Essenti al (primar y) hyperte nsion MONICA JAIME 06/06 [place] [facility] Social History Combined list of available smoking, tobacco, and other social history from Department of Defense and Veterans Affairs facilities. Social History Type Response Date Comment Sourc e Tobacco smoking status [facility]-TO[facility]ACCO NEVER USED 07/03/2023 [facility] History of tobacco use VA-TOBACCO NEVER USED 07/18/2022 [facility] History of tobacco use [facility] 08/16/2021 [facility] History of tobacco use [facility]-TOBACCO NEVER USED 09/14/2020 [facility] History of tobacco use [facility] NEVER USED 11/19/2019 [facility] History of tobacco use V9 LIFETIME NON-USER OF TOBACCO 11/28/2017 [facility] History of tobacco use V9 LIFETIME NON-USER OF TOBACCO 05/19/2016 [facility] History of tobacco use V9 LIFETIME NON-USER OF TOBACCO 10/28/2014 [facility] This section is an empty social history section. DoD
== END 2024-08-07 23:59 | disposition home or self-care (01) ==
LOC: RAD 09:43
PROVIDERS: PCP Family Medicine; Visit Provider Physician Assistant
DX: M25.552 Pain in left hip (principal)
CPT/HCPCS: 73502

== ENCOUNTER 2024-09-24 10:00 | Outpatient (RCR) | payer MEDICARE, OTHER, SELFPAY ==
--- NOTE | 2024-08-20 14:59 | HMH.PTOPEV ---
PT Outpatient Evaluation Rehab PT Outpatient Evaluation Start: 08/20/24 13:04 Freq: Status: Active Protocol: Document 08/20/24 13:04 [email or web address] (Rec: 08/20/24 14:59 PDESEROUX [id number]) E-signed By Fletcher Patiño, PT Outpatient Therapy Subjective History Subjective History Pt. is a 78 year old male who presents to [facility] Out[facility] Therapy Services in [place] for the outpatient initial evaluation this date( 08/20/24) w/ c/o acute and constant LLE hip P!, soreness, and weakness of insidious onset 5 weeks ago. Pt. reports the first wk. he was prescribed pain medicine which provided pt. w/ no symptom relief. Pt. reports he was then prescribed a steroid for 9 days in which provided pt. w / some symptom relief. Pt. denies having any injections for current complaint at this time. Recent diagnostic imaging negative per pt. result. Pt. [place] and c/o increased soreness later than night. Pt. also c/o increased symptomatic P! 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 Pt. reports he's had to use a walking stick w/ ambulation secondary to the P! , without it, pt. reports his LLE giving out on him d/t P! . Pt. c/o soreness and weakness throughout the LLE as this P! has progressed over the last 5 weeks. Current medications include Atorvastatin, Tamsulosin, Saw [place]. PMH includes enlarged prostate, basal cell carcinoma, squamous cell carcinoma, colon resection, hyperlipidemia, L eye macular flap. New diagnosis of cancer in past 12 No months? Chief Complaint Pain,Spasms,Clicks,Gives out/ Unstable,Paresthesia,Weakness Symptom Type Ache,Sharp,Dull,Stabbing, Shooting Symptoms Relieved By Rest/Positioning,Heat, Prescription Meds Symptoms Aggravated By Sitting,Standing,Bending/ Stooping,Twisting,Walking, Lifting Prior Functional Limitations None Current Functional Limitations Housework,Dressing,Driving, Standing,Sitting,Recreation Activity,Walking,Bending/ Stooping Symptom Description Constant but Variable,Activity Dependent Level of pain today (0-10) 4 Pain scale - at its best (0-10) 3 Pain scale - at its worst (0-10) 8 Lumbopelvic Eval Posture Thoracic Spine Posture Standing Position Neutral Lumbar Spine Posture Standing Position Neutral Assistive device Assistive Devices None / NA Gait Observation General Gait Pattern Observation Antalgic Gait,Decrease Weight Bear (L),Decrease Stride Lngth (R) Palapation tenderness left lumbar spinal tenderness Yes buttock tenderness Yes Lumbar/Sacral Palpation Findings Tenderness Lumbar/Sacral Palpation Overall Comment grade 3 +TTP Accessory Movement L-spine Vertebrae Accessory Movements Central P/A [place],Left P/A that Elicit Symptoms [place] L3 left,bilateral L4 left,bilateral Range of Motion Lumbar Spine Active Flexion Range of 65 Motion (degrees) Lumbar Spine Active Extension Range of 16 Motion (degrees) Left Lumbar Spine Lateral Flexion Active 13 Range of Motion (degrees) Right Lumbar Spine Lateral Flexion 23 Active Range of Motion (degrees) Lumbar Spine ROM Limitations Soft Tissue Tightness,Muscle Weakness,Muscle Tone,Pain Manual Muscle Test Left Knee Extension Strength Grade 4 Good Knee Flexion Strength Grade 4- Good- Hip Flexion Strength Grade 3 Fair Hip Abduction Strength Grade 4- Good- Hip Adduction Strength Grade 4- Good- Hip External Rotation Strength Grade 3+ Fair+ Hip Internal Rotation Strength Grade 3 Fair Hip Extension Strength Grade 4 Good Gluteus Lester Strength Grade 4 Good Extensor Hallucis Longus Strength Grade 4 Good Ankle Dorsiflexion Strength Grade 4 Good Gastronemius/Soleus Strength Grade 4 Good DTR Rt Patellar 2+ Lt Patellar 2+ Rt Gastroc/Soleus 0 Lt Gastroc/Soleus 1+ Altered Sensation Bilateral Comment pt. vocalized symmetrical BLE light touch sensation grossly Special Tests Lumbar Spine Screen Positive Hip Scouring (Quadrant) Test Positive Left Hip Fletcher (LISET) Test Positive Left Hip Piriformis Test Positive Left Sciatic Nerve Tension Test Positive Left Outpatient Therapy Assessment Impairments Problems/Impairmments Palpation Tenderness,Impaired Range of Motion,Impaired Strength,Impaired Endurance, Impaired Transfers,Impaired Gait Pattern,Impaired Walking, Impaired Standing,Impaired Sitting,Impaired Household Care,Impaired Incline Stepping ,Impaired Bending,Impaired Recreational Activities, Impaired Work Activities, Subjective C/O Pain,Impaired Self Care/Self Management Prognosis Rehab Potential Good Comment w/ HEP compliancy Clinical Impression Consistent with Diagnosis Yes Consistent with L-sided SI jt. dysfunction w/ sciat Additional details: bursitis LLE hip Short Term Goals Number of Weeks 2 Decreased Palpation Tenderness Yes: grade 2 +TTP Decrease Subjective C/O Pain Yes: worse:08/10 Patient to be Ind w/ HEP Yes Education Supervisor Goals Number of Weeks 4-6 Decreased Palpation Tenderness Yes: grade 1 +TTP Increase Range of Motion Yes: lumbar spine and LLE hip A/PROM WFL grossly w/o difficulty Increase Strength Yes: 4+ to 5/5 LLE hip MMT scores grossly Improve Transfers Yes: Pt. will be able to stand from a prolonged seated position w/o difficulty Improve Gait Pattern without Assistive Yes Device Increase Ability to Walk Yes: w/o AD Increase Ability to Stand Yes: w/o AD Increase Ability to Sit Yes Improve Ability to Dress Self Yes Return to Recreational Activities Yes: Pt. will return to loading wood in the wood burning furnace w/o difficulty Improve Tolerance to Work Activities Yes: Pt. will return to working on bikes w/o difficulty Improve Oswestry Score Yes Improve LEFI Score Yes Decrease Subjective C/O Pain Yes: worse:-05/13 Patient to be Ind w/ Advanced HEP Yes Outpatient Therapy Plan of Care Treatment Plan May Include Therapeutic Exercise Including Home Yes Exercise Program Manual Therapy Techniques Yes Neuromuscular Re-education Yes Therapeutic Activities to Return to Yes Previous Functional/Work Level Gait Training Yes ADL/Self Care Education Yes Mechanical Traction Yes Dry Needling Yes Thermal Modalities Yes Electrical Stimulation Yes Ultrasound/Phonophoresis Yes Iontophoresis Yes Vasopneumatic Compression Pump Yes Massage Yes Eval/Re-Eval Yes Frequency Times per week 2 Duration Number of Weeks 4-6 Addendums This patient is a candidate for social No or vocational rehab? Patient/Guardian verbally acknowledges Yes understanding of treatment program and consents to further treatment? Patient/Guardian verbally acknowledges Yes understanding of diagnosis, prognosis and goals for treatment? Eval Complexity PT Charges 53942 - Low Complexity Shoulder/Elbow Eval Shoulder Objective Measurements Elbow Objective Measurements PHYSICIAN CERTIFICATION: I certify the specified therapy services for [employer] [employer] are required, authorized, and reviewed every 30 days.
== END 2024-09-24 23:59 | disposition home or self-care (01) ==
LOC: PT.CARL 10:00
PROVIDERS: PCP Family Medicine; Visit Provider Physician Assistant
DX: M70.72 Other bursitis of hip, left hip (principal)
CPT/HCPCS: 97110; 97112; 97163; 97530

== ENCOUNTER 2024-10-08 09:00 | Outpatient (RCR) | payer MEDICARE, OTHER, SELFPAY | END 2024-10-23 13:05 | disposition home or self-care (01) | LOC: PT.CARL 09:00 | PROVIDERS: PCP Family Medicine; Visit Provider Physician Assistant | DX: M70.72 Other bursitis of hip, left hip (principal) | CPT/HCPCS: 20560; 97110 ==

== ENCOUNTER 2024-11-18 09:29 | Outpatient (POV) | payer MEDICARE, OTHER, SELFPAY ==
--- OUTSIDE RECORDS SUMMARY | 2024-11-18 09:33 | XMS_ITS | Continuity of Care Document ---
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 It does not include entries that were removed or entered in error. Problem Status Onset Date Problem Type Date of Resolution Comments Source Basal cell carcinoma of skin Active Condition [place] [facility] Benign essential hypertension Active Condition [facility] Benign prostatic hyperplasia Active Condition [facility] Elevated blood pressure Active Condition [facility] Epidermal cyst Active [place] [facility] Exposure to potentially hazardous substance Active Condition [place] [facility] Ganglion cyst Active Condition [place] Gastroesophageal reflux disease Active Condition [facility] H/O: surgery Active Condition Oct 28, 2014 Entered By: KEYONA HER Comment: numerous basal skin cancersJu2014 Entered By: KEYONA HER Comment: He will soon be getting radiation on his left ear [facility] Health Maintenance Active Condition J ul 2014 Entered By: KEYONA HER Comment: Patient refuses colonoscopyJu2014 Entered By: KEYONA HER Comment: h/o + TB skin test : neg cxr [facility] History of male erectile disorder Active Condition [place] [facility] Hyperlipidemia Active Condition [place] [facility] Impacted cerumen in left ear Active Condition [facility] Social and personal history finding Active Condition [...] Entered By: KEYONA HER Comment: Sibs: DMII [facility] 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 Vertigo Active Condition [facility] Diagnosis: ICD-10-CM I10 Essential (primary) hypertension Active Diagnosis [facility] Diagnosis: ICD-10-CM L57.0 Actinic keratosis [facility] Diagnosis: ICD-10-CM D48.5 Neoplasm of uncertain behavior of skin Active Diagnosis [facility] Medications Combined list of outpatient medications from Department of Defense and [facility] facilities.Medications provided include 1) outpatient medications from the last 15 months, and 2) patient-reported medications. Medication Details Route Status Patient Instructions Prescription Expires Prescription Number Last Dispense Date Ordering Provider Order Date Order Qty Source ATORVASTATI N CA 20MG TAB TAKE ONE-HALF TABLET BY MOUTH DAILY ORAL ACTIVE Severo MAY 2016 [place] [facility] CHLORTHALID ONE 25MG TAB TAKE ONE-HALF TABLET BY MOUTH DAILY FOR BLOOD PRESSURE ORAL ACTIVE 06/07/2025 [id number] KEEGAN JAIME S 2024 45 [place] [facility] CYANOCOBALA MIN 1000MCG TAB TAKE ONE TABLET BY MOUTH DAILY ORAL ACTIVE KEEGAN JAIME S 2023 [place] [facility] FISH OIL 1200MG CAP,ORAL TAKE 1 CAPSULE BY MOUTH DAILY ORAL ACTIVE CALE IQBAL 2015 [place] HYDROXYZINE HCL 25MG TAB TAKE ONE TABLET BY MOUTH DAILY NEEDED ORAL ACTIVE KEEGAN JAIME S 2024 [place] [facility] MULTIVITAMI N/OPTH AREDS SINGLE STRENGTH TAB TAKE ONE TABLET BY MOUTH DAILY ORAL ACTIVE Severo MAY 2016 [place] [facility] SAW PALMETTO CAP/TAB TAKE 2 CAPS/TAB S BY MOUTH DAILY ORAL ACTIVE KEEGAN JAIME S 2018 [place] [facility] SILDENAFIL CITRATE 100MG TAB TAKE ONE-HALF TABLET BY MOUTH DIRECTED FOR ERECTILE DYSFUNCT ION - DO NOT TAKE WITH ANY MEDICATI ON CONTAINI NG NITRATES (LIMIT: 6 DOSES/30 DAYS OR 18 DOSES/90 DAYS, NON-REPL ACEABLE MEDICATI ON) ORAL ACTIVE 04/03/2025 [id number] KEEAGN JAIME S 2023 6 [place] [facility] SILDENAFIL CITRATE 100MG TAB TAKE ONE-HALF TABLET BY MOUTH DIRECTED FOR ERECTILE DYSFUNCT ION - DO NOT TAKE WITH ANY MEDICATI ON CONTAINI NG NITRATES (LIMIT: 4 DOSES/30 DAYS OR 12 DOSES/90 DAYS, NON-REPL ACEABLE MEDICATI ON) ORAL DISCONT INUED 03/15/2024 [id number] KEEGAN JAIME UKA S 2023 6 [place] [facility] TAMSULOSIN HCL 0.4MG CAP TAKE ONE CAPSULE BY MOUTH EVERY EVENING FOR PROSTATE ORAL ACTIVE 04/18/2025 [id number] 5 KEEGAN JAIMEA S 2024 90 [place] [facility] TAMSULOSIN HCL 0.4MG CAP TAKE ONE CAPSULE BY MOUTH EVERY EVENING FOR PROSTATE ORAL DISCONT INUED 07/03/2024 [id number] KEEGAN JAIME UKA S 2023 90 [place] [facility] Immunizations Combined list of available immunizations from the Department of Defense and Veterans Affairs facilities. Immunization Series Date Given Administered By Site Reaction Lot Number CVX Code Drug Chair Pad Maker Status Comments Source TDAP 2024 RAMA CRUZ LEFT DELTO ID [id number] 115 complet ed ADMINISTE RED AT ME, [place] [facility] COVID-19 (MODERNA), MRNA, LNP-S, PF, 50 MCG/0.5 ML (AGES 12+ YEARS) 7 2023 312 complet ed HISTORICA L INFORMATI ON - FROM OTHER REGISTRY, [place] [facility] INFLUENZA, HIGH-DOSE, TRIVALENT, PF 7 2023 135 complet ed HISTORICA L INFORMATI ON - FROM OTHER REGISTRY, [place] [facility] COVID-19 (MODERNA), MRNA, LNP-S, PF, 50 MCG/0.5 ML (AGES 12+ YEARS) 6 2022 312 complet ed HISTORICA L INFORMATI ON - FROM OTHER REGISTRY, [place] [facility] INFLUENZA, HIGH-DOSE, QUADRIVALENT 6 2022 197 complet ed HISTORICA L INFORMATI ON - FROM OTHER REGISTRY, [place] [facility] COVID-19 (MODERNA), MRNA, LNP-S, BIVALENT, PF, 50 MCG/0.5 ML OR 25MCG/0.25 ML DOSE 5 2022 229 complet ed HISTORICA L INFORMATI ON - FROM OTHER REGISTRY, [place] [facility] INFLUENZA, HIGH-DOSE, QUADRIVALENT 5 2021 197 [...] (HISTORICAL) 2016 88 complet ed [place] [facility] INFLUENZA A & B (HISTORICAL) 2015 88 complet ed [place] [facility] INFLUENZA A & B (HISTORICAL) 2014 88 complet ed [place] [facility] DTP 2014 01 complet ed [place] [facility] TDAP 2014 115 complet ed [place] [facility] INFLUENZA A & B (HISTORICAL) 2013 88 complet ed [place] [facility] Results Combined list of recent chemistry, hematology and other laboratory results from Department of Defense and Veterans Affairs, ranging from 15 months to all on record, depending upon the facility. Order Name Results Value Reference Range Date Interpretation Specimen Comments Source LIPID PROFILE CHOLESTEROL [MASS/VOLUM E] IN SERUM [...] 2024 02:39 PM Reporting Lab: SWATHI Flowers [address] [address] Performing Lab: SWATHI Flowers [address] [address] [facility] LIPID PROFILE TRIGLYCERID E [MASS/VOLUM E] IN SERUM OR PLASMA 152 mg/dL 0 - 149 06/06 H Specimen Type: PLASMA Comment: Estimated [...] 2024 02:39 PM Reporting Lab: SWATHI Flowers [facility] [address] [facility] [address] Performing Lab: GNADENHUTTEN- Lionel [facility] [address] [facility] [address] [facility] LIPID PROFILE CHOLESTEROL IN HDL [MASS/VOLUM E] [...] Jun 06, 2024 02:39 PM Reporting Lab: [address] [address] Performing Lab: [address] [address] [facility] LIPID PROFILE CHOLESTEROL IN LDL [MASS/VOLUM E] [...] Jun 06, 2024 02:39 PM Reporting Lab: [employer] D [address] [address] Performing Lab: [employer] D [address] [address] [facility] PANEL 2 PROTEIN [MASS/VOLUM E] IN SERUM [...] Jun 06, 2024 02:39 PM Reporting Lab: [employer] ([employer] D [address] [address] Performing Lab: [employer] ([employer] D [address] [address] [facility] PANEL 2 ALBUMIN [MASS/VOLUM E] IN SERUM [...] Jun 06, 2024 02:39 PM Reporting Lab: [address] [address] Performing Lab: [address] [address] [facility] PANEL 2 BILIRUBIN.T OTAL [MASS/VOLUM E] IN [...] Jun 06, 2024 02:39 PM Reporting Lab: [address] [address] Performing Lab: [address] [address] [facility] PANEL 2 ASPARTATE AMINOTRANSF ERASE [ENZYMATIC ACTIVITY/VO [...] Jun 06, 2024 02:39 PM Reporting Lab: [facility] Lionel [address] [address] Performing Lab: [facility] Lionel [address] [address] [facility] PANEL 2 ALANINE AMINOTRANSF ERASE [ENZYMATIC ACTIVITY/VO [...] Jun 06, 2024 02:39 PM Reporting Lab: [address] [address] Performing Lab: [address] [address] [facility] PANEL 2 ALKALINE PHOSPHATASE [ENZYMATIC ACTIVITY/VO LUME] [...] 2024 02:39 PM Reporting Lab: SWATHI Flowers [address] [address] Performing Lab: SWATHI Flowers [address] [address] [facility] PANEL 2 BILIRUBIN.D IRECT [MASS/VOLUM E] IN [...] Jun 06, 2024 02:39 PM Reporting Lab: [facility] [address] [address] Performing Lab: GNADENHUTTEN- D [address] [address] [facility] CBC/PLT LEUKOCYTES [#/VOLUME] IN BLOOD BY AUTOMATED COUNT 6.3 10*3/u L 5.0 - 10.0 06/06 Specimen Type: BLOOD No comment entered. Ordering Provider: IVONE JAIME Report Released Date/Time: Jun 06, 2024 02:39 PM Reporting Lab: [address] [address] Performing Lab: [place] [id number] [place] [address] CBC/PLT ERYTHROCYTE S [#/VOLUME] IN BLOOD BY AUTOMATED COUNT 3.72 10*6/u L 4.6 - 6.2 06/06 L Specimen Type: BLOOD No comment entered. Ordering Provider: IVONE JAIME Report Released Date/Time: Jun 06, 2024 02:39 PM Reporting Lab: [address] [address] Performing Lab: [place] [phone] [place] [address] CBC/PLT HEMOGLOBIN [MASS/VOLUM E] IN BLOOD 12.2 g/dL 14.0 - 18.0 06/06 L Specimen Type: BLOOD No comment entered. Ordering Provider: IVONE JAIME Report Released Date/Time: Jun 06, 2024 02:39 PM Reporting Lab: [place] [phone] Performing Lab: [place] [id number] [place] [address] CBC/PLT HEMATOCRIT [VOLUME FRACTION] OF BLOOD BY AUTOMATED COUNT 36.3 42.0 - 52.0 06/06 L Specimen Type: BLOOD No comment entered. Ordering Provider: IVONE JAIME Report Released Date/Time: Jun 06, 2024 02:39 PM Reporting Lab: [address] [address] Performing Lab: [address] [address] [facility] CBC/PLT MCV [ENTITIC VOLUME] BY AUTOMATED COUNT 97.6 fL 80.0 - 94.0 06/06 H Specimen Type: BLOOD No comment entered. Ordering Provider: IVONE JAIME Report Released Date/Time: Jun 06, 2024 02:39 PM Reporting Lab: [address] [address] Performing Lab: [place] [id number] [place] [address] CBC/PLT MCH [ENTITIC MASS] BY AUTOMATED COUNT 32.8 pg 27.0 - 31.0 06/06 H Specimen Type: BLOOD No comment entered. Ordering Provider: IVONE JAIME Report Released Date/Time: Jun 06, 2024 02:39 PM Reporting Lab: [place] [phone] Performing Lab: [place] [id number] [place] [address] CBC/PLT MCHC [MASS/VOLUM E] BY AUTOMATED COUNT 33.6 g/dL 32.0 - 36.0 06/06 Specimen Type: BLOOD No comment entered. Ordering Provider: IVONE JAIME Report Released Date/Time: Jun 06, 2024 02:39 PM Reporting Lab: [place] [phone] Performing Lab: [place] [id number] [place] [address] CBC/PLT PLATELETS [#/VOLUME] IN BLOOD 189 10*3/u L 150 - 450 06/06 Specimen Type: BLOOD No comment entered. Ordering Provider: IVONE JAIME Report Released Date/Time: Jun 06, 2024 02:39 PM Reporting Lab: [place] [phone] Performing Lab: [place] [id number] [place] [address] CBC/PLT PLATELET MEAN VOLUME [ENTITIC VOLUME] IN BLOOD 11.2 fL 9.0 - 13.1 06/06 Specimen Type: BLOOD No comment entered. Ordering Provider: IVONE JAIME Report Released Date/Time: Jun 06, 2024 02:39 PM Reporting Lab: [place] [phone] Performing Lab: [place] [phone] [place] [address] CBC/PLT ERYTHROCYTE DISTRIBUTIO N WIDTH [ENTITIC VOLUME] BY AUTOMATED COUNT 13.5 11.0 - 16.0 06/06 Specimen Type: BLOOD No comment entered. Ordering Provider: IVONE JAIME Report Released Date/Time: Jun 06, 2024 02:39 PM Reporting Lab: [address] [address] Performing Lab: [address] [address] [facility] CBC/PLT NUCLEATED ERYTHROCYTE S/100 ERYTHROCYTE S IN BLOOD 0.0 0.0 - 0.0 06/06 Specimen Type: BLOOD No comment entered. Ordering Provider: IVONE JAIME Report Released Date/Time: Jun 06, 2024 02:39 PM Reporting Lab: [address] [address] Performing Lab: [address] [address] [facility] PANEL 1 CREATININE [MASS/VOLUM E] IN SERUM [...] Jun 06, 2024 02:39 PM Reporting Lab: [facility] Lionel [address] [address] Performing Lab: [address] [address] [facility] PANEL 1 UREA NITROGEN [MASS/VOLUM E] IN [...] Jun 06, 2024 02:39 PM Reporting Lab: [employer] ([employer] D [address] [address] Performing Lab: [employer] D [address] [address] [facility] PANEL 1 GLUCOSE [MASS/VOLUM E] IN SERUM [...] 2024 02:39 PM Reporting Lab: SWATHI Flowers [address] [address] Performing Lab: [facility] Flowers [address] [address] [facility] PANEL 1 SODIUM [MOLES/VOLU ME] IN SERUM [...] Jun 06, 2024 02:39 PM Reporting Lab: [facility] Lionel [address] [address] Performing Lab: [address] [address] [facility] PANEL 1 POTASSIUM [MOLES/VOLU ME] IN SERUM [...] Jun 06, 2024 02:39 PM Reporting Lab: [facility] Flowers [address] [address] Performing Lab: [facility] Lionel [address] [address] [facility] PANEL 1 CHLORIDE [MOLES/VOLU ME] IN SERUM [...] Jun 06, 2024 02:39 PM Reporting Lab: ROMARIO-CD D [address] [address] Performing Lab: GNADENHUTTEN- D [address] [address] [facility] PANEL 1 CARBON DIOXIDE, TOTAL [MOLES/VOLU ME] [...] 2024 02:39 PM Reporting Lab: SWATHI Flowers [address] [address] Performing Lab: SWATHI Flowers [address] [address] [facility] PANEL 1 CALCIUM [MASS/VOLUM E] IN SERUM [...] Jun 06, 2024 02:39 PM Reporting Lab: ROMARIOJIM Flowers [address] [address] Performing Lab: [facility] Lionel [address] [address] [facility] PANEL 1 ANION GAP 3 IN SERUM [...] 2024 02:39 PM Reporting Lab: SWATHI Flowers [facility] [address] [facility] [address] Performing Lab: SWATHI Flowers [facility] [address] [facility] [address] [facility] PANEL 1 GLOMERULAR FILTRATION RATE/1.73 SQ M.PREDICTED [...] Jun 06, 2024 02:39 PM Reporting Lab: [place] Lionel [facility] [address] [facility] [address] Performing Lab: [facility] D [place] [id number] [facility] [address] [facility] LIPID PROFILE CHOLESTEROL [MASS/VOLUM E] IN SERUM [...] Jul 03, 2023 03:27 PM Reporting Lab: [address] [address] Performing Lab: [address] [address] [facility] LIPID PROFILE TRIGLYCERID E [MASS/VOLUM E] IN [...] Jul 03, 2023 03:27 PM Reporting Lab: [address] [address] Performing Lab: [address] [address] [facility] LIPID PROFILE CHOLESTEROL IN HDL [MASS/VOLUM E] [...] Jul 03, 2023 03:27 PM Reporting Lab: [facility]ENTER[facility] Media D [facility] [address] [facility] [address] Performing Lab: [facility] D [address] [address] [facility] LIPID PROFILE CHOLESTEROL IN LDL [MASS/VOLUM E] [...] Jul 03, 2023 03:27 PM Reporting Lab: [place] [address] Performing Lab: [address] PSA PROSTATE SPECIFIC AG [MASS/VOLUM E] IN SERUM OR PLASMA 2.665 ng/mL 0 - 3.999 07/02 Specimen Type: SERUM No comment entered. Ordering Provider: IVONE JAIME Report Released Date/Time: Jul 03, 2023 03:27 PM Reporting Lab: [place] [address] Performing Lab: [address] CBC/PLT LEUKOCYTES [#/VOLUME] IN BLOOD BY AUTOMATED COUNT 7.2 10*3/u L 5.0 - 10.0 07/02 Specimen Type: BLOOD No comment entered. Ordering Provider: IVONE JAIME Report Released Date/Time: Jul 03, 2023 03:27 PM Reporting Lab: [place] [address] Performing Lab: [address] CBC/PLT ERYTHROCYTE S [#/VOLUME] IN BLOOD BY AUTOMATED COUNT 3.82 10*6/u L 4.6 - 6.2 07/02 L Specimen Type: BLOOD No comment entered. Ordering Provider: IVONE JAIME Report Released Date/Time: Jul 03, 2023 03:27 PM Reporting Lab: [place] [address] Performing Lab: [address] CBC/PLT HEMOGLOBIN [MASS/VOLUM E] IN BLOOD 12.3 g/dL 14.0 - 18.0 07/02 L Specimen Type: BLOOD No comment entered. Ordering Provider: IVONE JAIME Report Released Date/Time: Jul 03, 2023 03:27 PM Reporting Lab: [place] [address] Performing Lab: [address] CBC/PLT HEMATOCRIT [VOLUME FRACTION] OF BLOOD BY AUTOMATED COUNT 37.1 42.0 - 52.0 07/02 L Specimen Type: BLOOD No comment entered. Ordering Provider: IVONE JAIME Report Released Date/Time: Jul 03, 2023 03:27 PM Reporting Lab: [place] [address] Performing Lab: [address] CBC/PLT MCV [ENTITIC VOLUME] BY AUTOMATED COUNT 97.1 fL 80.0 - 94.0 07/02 H Specimen Type: BLOOD No comment entered. Ordering Provider: IVONE JAIME Report Released Date/Time: Jul 03, 2023 03:27 PM Reporting Lab: [place] [phone] Performing Lab: [place] [phone] [place] [address] CBC/PLT MCH [ENTITIC MASS] BY AUTOMATED COUNT 32.2 pg 27.0 - 31.0 07/02 H Specimen Type: BLOOD No comment entered. Ordering Provider: IVONE JAIME Report Released Date/Time: Jul 03, 2023 03:27 PM Reporting Lab: [place] [phone] Performing Lab: [address] [address] [facility] CBC/PLT MCHC [MASS/VOLUM E] BY AUTOMATED COUNT 33.2 g/dL 32.0 - 36.0 07/02 Specimen Type: BLOOD No comment entered. Ordering Provider: IVONE JAIME Report Released Date/Time: Jul 03, 2023 03:27 PM Reporting Lab: [address] [address] Performing Lab: [address] [phone] [place] [address] CBC/PLT PLATELETS [#/VOLUME] IN BLOOD 195 10*3/u L 150 - 450 07/02 Specimen Type: BLOOD No comment entered. Ordering Provider: IVONE JAIME Report Released Date/Time: Jul 03, 2023 03:27 PM Reporting Lab: [place] [phone] Performing Lab: [address] [address] [facility] CBC/PLT PLATELET MEAN VOLUME [ENTITIC VOLUME] IN BLOOD 11.4 fL 9.0 - 13.1 07/02 Specimen Type: BLOOD No comment entered. Ordering Provider: IVONE JAIME Report Released Date/Time: Jul 03, 2023 03:27 PM Reporting Lab: [address] [address] Performing Lab: [address] [phone] [place] [address] CBC/PLT ERYTHROCYTE DISTRIBUTIO N WIDTH [ENTITIC VOLUME] BY AUTOMATED COUNT 13.7 11.0 - 16.0 07/02 Specimen Type: BLOOD No comment entered. Ordering Provider: IVONE JAIME Report Released Date/Time: Jul 03, 2023 03:27 PM Reporting Lab: [address] [address] Performing Lab: [address] [address] [facility] CBC/PLT NUCLEATED ERYTHROCYTE S/100 ERYTHROCYTE S IN BLOOD 0.0 0.0 - 0.0 07/02 Specimen Type: BLOOD No comment entered. Ordering Provider: IVONE JAIME Report Released Date/Time: Jul 03, 2023 03:27 PM Reporting Lab: [address] [address] Performing Lab: [address] [address] [facility] PANEL 2 PROTEIN [MASS/VOLUM E] IN SERUM [...] Jul 03, 2023 03:27 PM Reporting Lab: [address] [address] Performing Lab: [address] [address] [facility] PANEL 2 ALBUMIN [MASS/VOLUM E] IN SERUM [...] Jul 03, 2023 03:27 PM Reporting Lab: [employer] D [address] [address] Performing Lab: [facility]ENTERM[facility] Media D [address] [address] [facility] PANEL 2 BILIRUBIN.T OTAL [MASS/VOLUM E] IN [...] Jul 03, 2023 03:27 PM Reporting Lab: [address] [address] Performing Lab: [address] [address] [facility] PANEL 2 ASPARTATE AMINOTRANSF ERASE [ENZYMATIC ACTIVITY/VO [...] Jul 03, 2023 03:27 PM Reporting Lab: [address] [address] Performing Lab: [address] [address] [facility] PANEL 2 ALANINE AMINOTRANSF ERASE [ENZYMATIC ACTIVITY/VO [...] Jul 03, 2023 03:27 PM Reporting Lab: [facility] Flowers [address] [address] Performing Lab: [facility] Lionel [address] [address] [facility] PANEL 2 ALKALINE PHOSPHATASE [ENZYMATIC ACTIVITY/VO LU[place]] [...] Jul 03, 2023 03:27 PM Reporting Lab: ROMARIO-JIM D [address] [address] Performing Lab: [facility] D [address] [address] [facility] PANEL 2 BILIRUBIN.D IRECT [MASS/VOLUM E] IN [...] 2023 03:27 PM Reporting Lab: SWATHI Flowers [address] [address] Performing Lab: ROMARIO-JIM Flowers [address] [address] [facility] PANEL 1 CREATININE [MASS/VOLUM E] IN SERUM [...] Jul 03, 2023 03:27 PM Reporting Lab: G[place]- D [address] [address] Performing Lab: [facility] D [address] [address] [facility] PANEL 1 UREA NITROGEN [MASS/VOLUM E] IN SERUM OR PLASMA 19 mg/dL 9 - 07/02 Specimen Type: PLASMA Comment: Estimated [...] 2023 03:27 PM Reporting Lab: SWATHI Flowers [address] [address] Performing Lab: SWATHI Flowers [address] [address] [facility] PANEL 1 GLUCOSE [MASS/VOLUM E] IN SERUM [...] 2023 03:27 PM Reporting Lab: ROMARIOJIM Flowers [address] [address] Performing Lab: [facility] Lionel [address] [address] [facility] PANEL 1 SODIUM [MOLES/VOLU ME] IN SERUM [...] Reporting Lab: SWATHI Flowers [facility] [address] [place] [address] Performing Lab: SWATHI Flowers [facility] [address] [facility] [address] [facility] PANEL 1 POTASSIUM [MOLES/VOLU ME] IN SERUM [...] decrease <15 G5 Kidney failure Ordering Provider: JAIME,IVONE S Report Released Date/Time: Jul 03, 2023 03:27 PM Reporting Lab: GNADENHUTTENDanny Lionel [address] [phone] Performing Lab: GNADENHUTTENDanny Lionel [address] [address] [facility] PANEL 1 CHLORIDE [MOLES/VOLU ME] IN SERUM [...] Jul 03, 2023 03:27 PM Reporting Lab: ROMARIO-JIM D [facility] [address] [facility] [phone] Performing Lab: ROMARIO-JIM D [facility] [address] [place] [phone] [facility] PANEL 1 CARBON DIOXIDE, TOTAL [MOLES/VOLU ME] IN SERUM OR PLASMA 24 mmol/L 07/02 Specimen Type: PLASMA Comment: Estimated Glomerular [...] Jul 03, 2023 03:27 PM Reporting Lab: [facility] D [address] [phone] Performing Lab: [facility] D [address] [address] [facility] PANEL 1 CALCIUM [MASS/VOLUM E] IN SERUM [...] Jul 03, 2023 03:27 PM Reporting Lab: [employer] D [facility] [address] [place] [phone] Performing Lab: [facility] D [address] [address] [facility] PANEL 1 ANION GAP 3 IN SERUM [...] Jul 03, 2023 03:27 PM Reporting Lab: [facility] [address] [address] Performing Lab: [facility] [address] [address] [facility] 1 GLOMERULAR FILTRATION RATE/1.73 SQ M.PREDICTED [VOLUME [...] Jul 03, 2023 03:27 PM Reporting Lab: [facility] Lionel [address] [address] Performing Lab: [facility] D [address] [address] [facility] Vital Signs Combined list of inpatient and outpatient Vital Signs from Department of [facility] and [facility], ranging from 12 months to all on record, depending upon the facility. Vital Sign Value Date Comments Source SYSTOLIC BLOOD PRESSURE 161 06/06/2024 14:29:25 [facility] DIASTOLIC BLOOD PRESSURE 77 06/06/2024 14:29:25 [facility] PULSE OXIMETRY 96 06/06/2024 14:29:25 L [facility] WEIGHT 160 06/06/2024 14:29:25 [facility] BMI 22 kg/m2 06/06/2024 14:29:25 [facility] PAIN 2 06/06/2024 14:29:25 [facility] TEMPERATURE 99 06/06/2024 14:29:25 [facility]EVIN ELE[facility] PULSE 78 06/06/2024 14:29:25 [facility] Encounters Combined list of: 1) Encounters from Department of Veterans Affairs facilities going backup to the last 18 months, not all [place] inpatient encounters are included; 2) Encounters from the Department of Defense facilities going backup to 280 months. Location Location Details Encounter Type Encounter Number Reason For Visit Attending Provider ADM Date DC Date Status Disposition Source [facility] Outpatient Encounter [id number] 06/01 [place] OFFICE O/P EST LOW 20 MIN [id number] Diagnos is: ICD-10- CM D48.5 Neoplas m of uncerta in behavio r of skin RADHASTJACQUE RT 06/19 [place] [facility] Outpatient Encounter [id number] RICHELLE DESAI 06/22 [place] [facility] OFFICE O/P EST LOW 20 MIN [id number] Diagnos is: ICD-10- CM I10 Essenti al (primar y) hyperte nsion MONICA JAIME S 07/02 [place] [facility] Outpatient Encounter [id number] 07/03 [place] [facility] Outpatient Encounter [id number] 07/03 [place] Outpatient Encounter [id number] 08/17 [place] Outpatient Encounter [id number] 08/20 [place] Outpatient Encounter [id number] 08/24 [place] [facility] Outpatient Encounter [id number] 12/10 [place] [facility] Outpatient Encounter [id number] 01/03 [place] OFF[facility] O/P EST LOW 20 MIN [id number] Diagnos is: ICD-10- CM L57.0 Actinic keratos is FRANCOISE GARCIA RT 02/19 [place] Outpatient Encounter [id number] 05/21 [place] OFFICE O/P EST MOD 30 MIN [id number] Diagnos is: ICD-10- CM I10 Essenti al (primar y) hyperte nsion MONICA JAIME KA S 06/06 [place] [facility] Outpatient Encounter [id number] 09/03 [place] Social History Combined list of available smoking, tobacco, and other social history from Department of Defense and [facility] facilities. Social History Type Response Date Comment [facility] Tobacco smoking status [facility] NEVER USED 07/03/2023 [facility]16/2021 [facility]14/2020 [facility]/19/2019 [facility] History of tobacco use V9 LIFETIME NON-USER OF TOBACCO 11/28/2017 [facility] History of tobacco use V9 LIFETIME NON-USER OF TOBACCO 05/19/2016 [facility] History of tobacco use V9 LIFETIME NON-USER OF TOBACCO 10/28/2014 [facility] This section is an empty social history section. DoD
--- OUTSIDE RECORDS SUMMARY | 2024-11-18 09:35 | XMS_ITS | Clinical Summary ---
[facility] Address [address] [place] [address] Care Team Providers Care Real Estate Management Specialist Name Role Phone Provider, No Known Primary Care Provider Unavail able Immunizations Immunization Administration Dates Next Due Fluzone High-Dose 65+YRS 02/18/2016 Social History Tobacco Use Types Packs/Day Years Used Date Smoking Tobacco: Never Assessed Abuse Screen Answer Date Recorded Unsafe at Home or Work/School Not on file Feels Threatened by Someone? Not on file 02/2023 Does Anyone Keep You from Co ntacting Others or Doint Things Outside the Home? Not on file 01/11/2023 Physical Sign of Abuse Present Not on file 1 Housing Stability Answer Date Recorded Current Living Arrangements Not on file 01/01 Potentially Unsafe Housing Conditions Not on harlan e 01/11/2023 Family and Community Support Answer Aashish e Recorded Help with Day-to-Day Activities Not on file 01/11/2023 Lonely or Isolated Not on file 01/11/2023 Employment Answer Date Recorded Do you want help finding or keeping work or a adalid b? Not on file 01/11/2023 Disabilities Answer Date Recorded Concentrating, Remembering, or Making Decisions Difficulty Not on file 01/11/2023 Doing Errands Independently Difficulty Not on fi le 01/11/2023 Education Answer Date Recorded Help with school or training? Not on file Preferred Language Not on file 01/11/2023 Sex and Gender Information Value Date Recorded Sex Assigned at Not on file Legal Sex Male 12:32 PM EST Gender Identity Not on file Sexual Orientation Not on file Plan of Treatment Health Maintenance Due Date Last Done Comments TDAP/TD VACCINES (1 - Tdap) 1964 COLOGUARD 1990 COLON CANCER SCREENING 5 YEAR SIGMOIDOSCOPY 1990 COLONOSCOPY 1990 COLORECTAL CANCER SCREENING 1990 CT COLONOGRAPHY 1990 FECAL OCCULT BLOOD TEST 1990 FIT Testing (1 year) 1990 Pneumococcal Vaccine 50+ (1 of 1 - PCV) 09/07/1995 ZOSTER VACCINE (1 of 2) 09/07/1995 ANNUAL PHYSICAL 12/09/2016 HEPATITIS C SCREENING 12/09/2016 RSV Vaccine - Adults (1 - 1-dose 75+ series) 1 COVID-19 Vaccine (1 - 2023- season) 2023 INFLUENZA VACCINE 01/01/2025 02/18/2016 Insurance MEDICARE A & B Care Teams Real Estate Management Specialist Relationship Specialty Start Date End Date Provider, No Known [facility] [address] PCP - General 02/18/16
--- NOTE | 2024-11-18 09:37 | EXP.PAIN.OV ---
HPI Data of Consult Patient: new to practice Consult date: 11/18/24 Requesting Physician: Nina Ingram APRN Primary Care Provider: Oscar Marquez MD Reason for consult: Left hip pain History of present illness: Mr. Silver is a 79 year old male who presents today as a new patient. He has a referral from Dr. Marquez's office. Patient states that he started having more left hip pain in spring of this year. He states he has had it at least 4 months. He states that he ended up having 6 weeks physical therapy that did help as well as oral steroids, heat and ice and topicals. Patient does state the pain is worse when he is in certain positions such as long car rides or prolonged sitting. He states in those moments the pain is severe and does interfere with his ability perform activities of daily living such as cooking and cleaning. Patient did see orthopedics here at the hospital and they were recommending injections. Patient denies any prior surgery or injection history.Patient is not on any scheduled medications. His Adan has been reviewed and is appropriate. Pain at rest (0-10 scale): 5 Has patient had previous pain injection?: No Conservative treatment options previously tried: Home exercise plan (Longer than 12 weeks) and Physical Therapy (6 weeks) cc:: CC: Nina Ingram APRN [facility] Disclaimer: The information contained in this section may have been updated after the patient was seen, as this information can be updated by other users. Medical History History of cataract Hyperlipidemia Basal cell carcinoma Postoperative urinary retention Vertigo BPH (benign prostatic hyperplasia) Hypertension Urinary retention Surgical History Hx of cataract surgery History of hernia surgery History of colonoscopy S/P colon resection Family History Mother Cancer Breast, brain Father Coronary artery disease Heart attack Other Diabetes Social History Smoking Status: Never smoker second hand exposure: No alcohol intake: never counseling given: Yes substance use type: denies use current occupational status: employed Travel in the last 8 weeks?: None household members: spouse housing: house marital status: current occupation: [employer] current occupational exposures/hazards: No caffeine: Yes Review of Systems Review of Systems Review of systems:: pertinent systems reviewed and negative unless documented below Review of systems (narrative): Review of Systems: General: No recent weight changes, no fever, no sleep disturbances Respiratory: No cough, no shortness of air, no recurring pulmonary infections Cardiovascular/peripheral vascular: No chest pain, no palpitations, no edema, no shortness of breath Gastrointestinal: No new onset incontinence, normal bowel movements reported Genitourinary: No new onset incontinence Musculoskeletal: left hip pain Psychiatric: [Normal mood/affect] Neurological: [Denies weakness in extremities], [denies balance issues] Meds Home Medications and Allergies Home Medications ?Medication ?Instructions ?Recorded ?Confirmed ?Type atorvastatin 10 mg tablet (Lipitor) 10 mg PO DAILY Cholesterol 04/13/18 11/07/24 History saw palmetto 450 mg capsule 450 mg PO BID Supplement 04/13/18 11/07/24 History tamsulosin 0.4 mg capsule 0.4 mg PO HS bladder 04/13/18 11/07/24 History xwllihyn-[id number] 250 mg-dha 90 1 cap PO DAILY Supplement 12/21/22 11/07/24 History mg-epa 160 dj-imwx-phjy-zeax capsule (Ocuvite Adult 50 Plus) omega-3 fatty acids 1,000 mg PO DAILY Supplement 12/21/22 11/07/24 History mecobalamin (vitamin B12) 1,000 1,000 mcg PO DAILY 07/06/23 11/07/24 History mcg lozenges hydroxyzine HCl 25 mg tablet 12.5 - 25 mg (0.5 - 1 x 25 mg) PO 02/05/24 11/07/24 Rx QID PRN dizziness #30 tabs chlorthalidone 25 mg tablet 25 mg PO DAILY 07/22/24 11/07/24 History sulfamethoxazole 800 1 tab PO BID #20 tabs 11/07/24 11/07/24 Rx mg-trimethoprim 160 mg tablet sodium,potassium,mag sulfates 17.5 See Rx Instructions PO .COMPLEX 11/14/24 Rx gram-3.13 gram-1.6 gram oral soln #354 mL (Suprep Bowel Prep Kit) New Prescriptions to Start Prescriptions: Allergies Allergy/AdvReac Type Severity Reaction Status Date / Time No Known Allergies Allergy Verified 11/07/24 14:22 Objective Narrative: Physical Exam: General: Alert and oriented x3, no acute distress, pleasant and cooperative Lungs: Respirations even and unlabored, symmetrical chest expansion Eyes: PERRL Musculoskeletal: Flexion and extension of lumbar [spine] somewhat guarded secondary to pain, [antalgic gait noted] point tenderness along left SI with positive left Ele's, Roxann's, Gaenslen's, compression and distraction exam Neurological: Speech clear, no gross sensory deficit Additional findings Additional findings: FINDINGS: AP and frog leg views of the left hip were obtained. There is no acute fracture or dislocation. Mild degenerative changes of the hips are present bilaterally. Soft tissues are unremarkable. IMPRESSION: No acute osseous abnormality of the left hip. Reviewed, Interpreted and Dictated by Wendy Roche MD Transcribed by Guerita Marinelli Authenticated and [facility] Assessment and Plan *Assessment and plan (1) Sciatica, left side: Status: Acute Category: Medical Code(s): M54.32 - Sciatica, left side (2) Sacroiliac joint dysfunction of left side: Status: Acute Category: Medical Code(s): M53.3 - Sacrococcygeal disorders, not elsewhere classified Plan Patient is experiencing worsening pain along his low back and left hip with limited range of motion. Patient did have point tenderness along his left SI during today's exam. I did discuss with patient that I do believe he would benefit from a left SI injection. Risk and benefits were discussed with the patient and she would like to proceed forward with this plan of care. Patient has had this pain for longer than 4 months unrelieved with conservative measures such as oral medication, heat and ice, topicals, physical therapy and continued at home stretching exercise for longer than 12 weeks that was physician guided. Patient was counseled that if he does end up getting significant relief with his initial SI injection that we will plan on additional in future with the possibility of him being a potential candidate of a SI fusion in future. This will be a diagnostic SI injection with less than 1 mL of solution to be injected. Patient will be scheduled for a left SI injection under fluoroscopy. Patient has been instructed to contact the clinic with any concerns before the next appointment. Dr. Mackenzie has reviewed this note and agrees with this plan of care. This note was dictated using voice recognition software and make contain errors or omissions. All injections are used with Lidocaine, Bupivacaine and dexamethasone unless diagnostic in which case there is no steroids injected. Occasionally urine drug screen is needed to verify patient's compliance with our office pain contract. This is ordered based off specific treatments related to chronic pain with the potential to abuse certain medications.
[2024-11-18 10:27] VITALS: BP 135/77; PULSE 83; RESP 18; O2SAT 98; BMI 22.9
== END 2024-11-18 23:59 | disposition home or self-care (01) ==
LOC: SC.PAIN 09:32
PROVIDERS: PCP Family Medicine; Visit Provider Nurse Practitioner Family
DX: M53.3 Sacrococcygeal disorders, not elsewhere classified (principal)
CPT/HCPCS: 99202; G0463

== ENCOUNTER 2024-12-06 08:57 | Day surgery (SDC) | payer MEDICARE, OTHER, SELFPAY ==
[2024-12-03 12:41] VITALS: BMI 21.7
--- NOTE | 2024-12-06 06:15 | EXP.GEN.HP ---
HPI HPI HPI: Patient presents for follow-up surveillance colonoscopy. He is a 79-year-old male from [place] whom I am familiar with as I have seen him in the past for hernia repair. He had a colonoscopy done on 12/03/2019 for rectal bleeding at which time he had 17 tubular adenomas removed and most concerning was a nearly circumferential adenomatous lesion in the distal transverse colon which initially was unable to be removed in its entirety with hot snare. He had a follow-up colonoscopy done on 01/28/2020 at which time there were 11 tubular adenomas removed and the lesion in the distal transverse colon was once again unable to be removed in its entirety with a variety of technique and therefore he underwent colon resection of the transverse colon on 05/08/2020. 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 After his colon resection on 05/08/2020 recommendations were for follow-up colonoscopy in 1 year. He ultimately underwent colonoscopy on 12/21/2022 at which time he had 14 polyps removed and most notable was a polyp immediately proximal to the ileocecal valve as well as in the descending colon. He had 14 tubular adenomas. Anastomosis was identified at approximately 60 cm. Given this he underwent follow-up colonoscopy on 07/10/2023 to assess the cecal lesion and there was no evidence of any residual polyp within the cecum. He did have a moderate ridge polyp distal to the hepatic flexure which was removed in a complex piecemeal fashion. Ultimately all polyps at this time were tubular adenomas. [facility] Disclaimer: The information contained in this section may have been updated after the patient was seen, as this information can be updated by other users. Medical History History of cataract Hyperlipidemia Basal cell carcinoma Postoperative urinary retention Vertigo BPH (benign prostatic hyperplasia) Hypertension Urinary retention Surgical History Hx of cataract surgery History of hernia surgery History of colonoscopy S/P colon resection Family History Mother Cancer Breast, brain Father Coronary artery disease Heart attack Other Diabetes Social History Smoking Status: Never smoker second hand exposure: No alcohol intake: never counseling given: Yes substance use type: denies use current occupational status: employed Travel in the last 8 weeks?: None household members: spouse housing: house marital status: current occupation: [employer] current occupational exposures/hazards: No caffeine: Yes Have you lived/traveled outside US in past 30 days?: No Contact w/someone who lives/traveled outside US past 30 days?: No Exposure to someone with infectious disease in past 14 days?: No Do you have a fever (greater than 100.4 F or 38 C)?: No Have you tested positive for COVID-19?: No Exposed to someone with COVID-19 in past 14 days?: No Do you have a sore throat?: No Do you have a cough?: No Do you have any weakness?: No Do you have any diarrhea?: No Are you experiencing any unusual bleeding?: No Do you have any muscle aches/pain?: No Do you have any abdominal pain?: No Are you experiencing loss of taste or smell?: No Other Medical History Have you received the Flu Vaccine for this season: Yes Have you received the Pneumonia Vaccine: Yes Meds Home Medications and Allergies Home Medications ?Medication ?Instructions ?Recorded ?Confirmed ?Type atorvastatin 10 mg tablet (Lipitor) 10 mg PO DAILY Cholesterol 04/13/18 12/06/24 History saw palmetto 450 mg capsule 450 mg PO BID Supplement 04/13/18 12/06/24 History tamsulosin 0.4 mg capsule 0.4 mg PO HS bladder 04/13/18 12/06/24 History bfircgkc-wpp-iebvx6 250 mg-dha 90 1 cap PO DAILY Supplement 12/21/22 11/18/24 History mg-epa 160 ph-zwkq-bjyw-zeax capsule (Ocuvite Adult 50 Plus) omega-3 fatty acids 1,000 mg PO DAILY Supplement 12/21/22 12/06/24 History mecobalamin (vitamin B12) 1,000 1,000 mcg PO DAILY 07/06/23 11/18/24 History mcg lozenges sodium,potassium,mag sulfates 17.5 See Rx Instructions PO .COMPLEX 11/14/24 11/18/24 Rx gram-3.13 gram-1.6 gram oral soln #354 mL (Suprep Bowel Prep Kit) sildenafil 100 mg tablet 100 mg PO DAILY PRN Erectile 12/06/24 12/06/24 History Dysfunction New Prescriptions to Start Prescriptions: Allergies Allergy/AdvReac Type Severity Reaction Status Date / Time No Known Allergies Allergy Verified 12/06/24 09:16 Exam Data for Last 24 hours I & O for Last 24 hours: Intake & Output 12/03/24 12/04/24 12/05/24 12/06/24 11:59 11:59 11:59 11:59 Weight 156 lb Constitutional Constitutional: no acute distress *Routine HEENT Exam Head: Present normocephalic Eye: Present EOMI and PERRL ENT: Present mucous membranes moist *Routine Neck Exam Neck: Present supple; Absent lymphadenopathy *Routine Respiratory Exam Respiratory: Present CTA bilaterally *Routine Cardiovascular Exam Cardiovascular: Present RRR *Routine Abdominal Exam Abdominal: Present soft and normoactive bowel sounds; Absent tenderness *Routine Rectal Exam Rectal:: deferred *Routine Genitalia Exam Genitalia:: deferred *Routine Extremities Exam Extremities: Absent cyanosis, clubbing or edema *Routine Skin Exam Skin: Present warm; Absent rash *Routine Neurological Exam Neurological: Present alert and oriented X3 Assessment and Plan *Assessment and plan (1) Colon polyps: Status: Acute Category: Medical Code(s): K63.5 - Polyp of colon (2) S/P colon resection: Status: Acute Category: Surgical Code(s): Z90.49 - Acquired absence of other specified parts of digestive tract Plan Colonoscopy
[2024-12-06 09:24] VITALS: BP 138/72; PULSE 87; RESP 20; TEMP 36.4; O2SAT 99
--- NOTE | 2024-12-06 09:32 | P.PCN_ITS ---
Procedure: Date: 12/06/24 Patient Date of :: 1945 Procedure Performed:: Total colonoscopy to terminal ileum with polypectomy and biopsies Indications:: Patient presents for follow-up surveillance colonoscopy. He is a 79-year-old male from [place] whom I am familiar with as I have seen him in the past for hernia repair. He had a colonoscopy done on 12/03/2019 for rectal bleeding at which time he had 17 tubular adenomas removed and most concerning was a nearly circumferential adenomatous lesion in the distal transverse colon which initially was unable to be removed in its entirety with hot snare. In an attempt to remove this hemicircumferential lesion given its benign nature he had a follow-up colonoscopy done on 01/28/2020 at which time there were 11 tubular adenomas removed and the lesion in the distal transverse colon was once again unable to be removed in its entirety with a variety of technique. He therefore underwent colon resection of the transverse colon on 05/08/2020. Pathology rev ealed tubulovillous adenoma with focal high-grade dysplasia. After his colon resection on 05/08/2020 recommendations were for follow-up colonoscopy in 1 year. He ultimately underwent colonoscopy on 12/21/2022 at which time he had 14 polyps removed and most notable was a polyp immediately proximal to the ileocecal valve as well as in the descending colon. He had 14 tubular adenomas. Anastomosis wa s identified at approximately 60 cm. Given this he underwent follow-up colonoscopy on 07/10/2023 to assess the cecal lesion and there was no evidence of any residual polyp within the cecum. He did have a moderate ridge polyp distal to the hepatic flexure which was removed in a complex piecemeal fashion. Ultimately all polyps at this time were tubular adenomas. . Performing Provider:: Rajesh Ramos MD Referring Provider:: Oscar Marquez MD Sedation:: MAC sedation Procedure:: Patient history was obtained and appropriate physical examination was performed. Patient's medications and allergies were reviewed. Informed consent was obtained after explaining the benefits, alternatives, and risks of the procedure including, but not limited to, bleeding, perforation, missed lesions, and adver se reaction to anesthesia medications. Patient was transported to endoscopy procedure room. Patient was connected to monitoring devices. Throughout the procedure the patient's blood pressure, puls e, and oxygen saturations were monitored continuously. Patient identification and planned procedure were verified by the staff. Patient was positioned in lateral decubitus position. Digital anorectal exam was performed. Variable stiffness Olympus colonoscope was inserted and advanced under direct visualization to the cecum. Adequacy of the colonic preparation was noted. The colonoscope was advanced a short distance into the terminal ileum. The colonoscope was then slowly withdrawn while carefully examining the color, texture, anatomy, and integrity of the mucosoa circumferentially. Within the rectum retroflexion was performed. Colonoscope was then withdrawn. Impression: Colonic preparation was good. Within the cecum there was a tiny diminutive polyp removed with biopsy forceps. In the ascending colon there was noted to be some Cindy ink tattooing. On the contralateral side from this there was adenomatous appearing polyp removed with hot snare. Residual tissue at the base removed with biopsy forceps. There was some degree of pandiverticulosis with most significant diverticuli within the sigmoid colon. Probable anastomosis was identified at approximately 55 cm from the anal verge. Initially this was thought to be possible sessile polyp as there is some prominent mucosa. However further inspection revealed this to be likely redundant mucosa secondary to into and handsewn anastomosis. Therefore numerous biopsies were obtained at the site. Colonoscope was withdrawn to the rectosigmoid region. For complete evaluation colonoscope was then readvanced to the right colon and withdrawn with surveillance carried out. Upon reaching the rectum retroflexion was performed. Colonoscope was withdrawn. . Findings:: Some degree of pandiverticulosis with most diverticuli within the sigmoid colon Polyp in the cecum removed with biopsy Ascending colon adenomatous polyp removed with hot snare Anastomosis at 55 cm with redundant mucosa, multiple biopsies obtained. . Recommendations:: Repeat colonoscopy pending pathology. Mostly depending on the biopsies of the anastomosis. If benign likely 2 years. If adenomatous could need early for repeat colonoscopy versus even consideration for repeat resection which may require involvement of colorectal surgery. . Complications:: None immediately apparent Estimated blood obtained (mL): 2 Colonoscopy Component Colonoscopy Component Was a colonoscopy performed during today's procedure?: Yes Recommended follow up colonoscopy of at least 10 years?: No If no, follow up colonoscopy recommended in ___ years?: See above Reason for not recommending >/= 10 yr follow-up interval?: See above
[2024-12-06] MEDS: LACTATED RINGERS 1000ML 1,000 ML 50 ML IV (09:37)
[2024-12-06 10:27] VITALS: BP 80/39; PULSE 70; RESP 14; TEMP 36.2; O2SAT 98
[2024-12-06 10:37] VITALS: BP 103/62; PULSE 73; TEMP 36.2; O2SAT 98
[2024-12-06 10:47] VITALS: BP 109/64; PULSE 79; O2SAT 95
[2024-12-06 10:57] VITALS: BP 116/79; PULSE 73; RESP 18; O2SAT 97
== END 2024-12-06 10:57 | disposition home or self-care (01) ==
PROVIDERS: PCP Family Medicine; Visit Provider Surgery
PROC: 0DJD8ZZ Inspection of Lower Intestinal Tract, Via Natural or Artificial Opening Endoscopic (ICD-10-PCS; CPT 45385; principal; 2024-12-06 10:15)
DX: Z12.11 Encounter for screening for malignant neoplasm of colon (principal); K63.5 Polyp of colon; Z90.49 Acquired absence of other specified parts of digestive tract; Z86.0101 Personal history of adenomatous and serrated colon polyps; K57.30 Diverticulosis of large intestine without perforation or abscess without bleeding; E78.5 Hyperlipidemia, unspecified; Z85.828 Personal history of other malignant neoplasm of skin; N40.1 Benign prostatic hyperplasia with lower urinary tract symptoms; R33.8 Other retention of urine; I10 Essential (primary) hypertension
CPT/HCPCS: 45385; 45380; 88305; J2003; J2704; J7120

== ENCOUNTER 2024-12-24 09:24 | Day surgery (SDC) | payer MEDICARE, OTHER, SELFPAY ==
[2024-12-24 09:31] VITALS: BP 143/80; PULSE 72; RESP 18; O2SAT 100; BMI 22.9
[2024-12-24] MEDS: BUPIVACAINE 0.25% 10ML INJ 25 MG IJ (09:39)
[2024-12-24 09:40] VITALS: BP 115/73; BP 151/73; PULSE 60; PULSE 75; RESP 18; O2SAT 100; O2SAT 99
[2024-12-24] MEDS: LIDOCAINE 1% 5ML PF VIAL 5 ML (09:40)
[2024-12-24 09:42] VITALS: BP 151/73; PULSE 75; RESP 18; O2SAT 99
--- NOTE | 2024-12-24 09:43 | EXP.PAIN.PRO ---
Procedure Date: 12/24/24 Time: 09:30 Anesthesiologist:: Alberto Leblanc CRNA Complications:: None Pre-procedure Diagnosis:: Left sacroiliitis Post-procedure Diagnosis:: Same Indications for Procedure:: Patient is a very pleasant 79-year-old male who comes our clinic today for a left diagnostic sacroiliac joint injection of local anesthetic. Patient describes low lumbar back pain off the midline to the left. Left posterior hip pain. Difficulty transitioning from sitting to standing. Difficulty with ambulation. He rates his pain 7/10. Procedure Details:: Procedure: Left sacroiliac injection under fluoroscopy Informed consent was obtained and the risk and benefits of the procedure were explained to the patient.~ The patient was taken to the procedure room and noninvasive monitors were placed including noninvasive blood pressure cuff and pulse oximeter.~ The patient was placed prone on the procedure table.~ The~ left hip was cleansed using Betadine as a cleansing solution.~ C-arm fluorosocpy was used to view the left SI joint.~ The skin and subcutaneous tissues were anesthetized using Lidocaine 1.5% and a 25-gauge needle.~ After this, a 22-gauge spinal needle was inserted under fluoroscopic guidance into the inferior aspect of the left SI joint.~ Omnipaque dye was injected and a good spread was seen throughout the joint.~ After this, approximately 5 mL of bupivacaine 0.25% was incrementally injected into the sacroiliac joint.~ The patient tolerated the procedure well with no complications.~ The patient was observed in the Pain Clinic for a period of 30-45 minutes, then discharged home neurologically intact.~ Plan and Disposition:: Patient was discharged without incident.
== END 2024-12-24 09:50 | disposition home or self-care (01) ==
PROVIDERS: PCP Family Medicine; Visit Provider Nurse Anesthetist, Certified Registered
DX: M46.1 Sacroiliitis, not elsewhere classified (principal); I10 Essential (primary) hypertension; E78.5 Hyperlipidemia, unspecified; N40.1 Benign prostatic hyperplasia with lower urinary tract symptoms; R33.8 Other retention of urine; Z79.899 Other long term (current) drug therapy
CPT/HCPCS: 64450; J0665; J2003

== ENCOUNTER 2025-02-25 12:55 | Day surgery (SDC) | payer MEDICARE, OTHER, SELFPAY ==
[2025-02-25 13:04] VITALS: BP 148/81; PULSE 75; RESP 16; O2SAT 100; BMI 22.9
[2025-02-25 13:21] VITALS: BP 159/88; PULSE 90; RESP 18; O2SAT 100
[2025-02-25 13:22] VITALS: BP 159/88; PULSE 79; RESP 18; O2SAT 100
[2025-02-25] MEDS: LIDOCAINE 1% 5ML PF VIAL 5 ML (13:24)
[2025-02-25] MEDS: DEXAMETHASONE 10MG/ML 1ML VIAL 10 MG (13:25)
[2025-02-25 13:26] VITALS: BP 163/85; PULSE 73; RESP 16; O2SAT 99
--- NOTE | 2025-02-25 13:27 | EXP.PAIN.PRO ---
Procedure Date: 02/25/25 Time: 13:15 Anesthesiologist:: Alberto Leblanc CRNA Complications:: None Pre-procedure Diagnosis:: Left sacroiliitis Post-procedure Diagnosis:: Same Indications for Procedure:: Patient is a very pleasant 79-year-old male who comes our clinic today for left sacroiliac joint injection of cortisone and local anesthetic. Patient describes low lumbar back pain off the midline to the left. Left posterior hip pain. Difficulty transitioning from sitting to standing. Difficulty with ambulation due to the left posterior hip pain. He rates his pain 7/10. Procedure Details:: Procedure: Left sacroiliac injection under fluoroscopy Informed consent was obtained and the risk and benefits of the procedure were explained to the patient.~ The patient was taken to the procedure room and noninvasive monitors were placed including noninvasive blood pressure cuff and pulse oximeter.~ The patient was placed prone on the procedure table.~ The~ left hip was cleansed using Betadine as a cleansing solution.~ C-arm fluorosocpy was used to view the left SI joint.~ The skin and subcutaneous tissues were anesthetized using Lidocaine 1.5% and a 25-gauge needle.~ After this, a 22-gauge spinal needle was inserted under fluoroscopic guidance into the inferior aspect of the left SI joint.~ Omnipaque dye was injected and a good spread was seen throughout the joint.~ After this, approximately 5 mL of bupivacaine 0.25% and dexamethasone 10 mg was incrementally injected into the sacroiliac joint.~ The patient tolerated the procedure well with no complications.~ The patient was observed in the Pain Clinic for a period of 30-45 minutes, then discharged home neurologically intact.~ Plan and Disposition:: Patient was discharged without incident.
== END 2025-02-25 13:26 | disposition home or self-care (01) ==
PROVIDERS: PCP Family Medicine; Visit Provider Nurse Anesthetist, Certified Registered
DX: M46.1 Sacroiliitis, not elsewhere classified (principal); E78.5 Hyperlipidemia, unspecified; I10 Essential (primary) hypertension; Z98.890 Other specified postprocedural states; Z79.899 Other long term (current) drug therapy; Z85.828 Personal history of other malignant neoplasm of skin; N40.0 Benign prostatic hyperplasia without lower urinary tract symptoms
CPT/HCPCS: G0260; J1100; J2003